=== PATIENT | female | born 1970 | race Caucasian/White ===

== ENCOUNTER 2024-03-10 07:02 | Outpatient (CLI) | payer OTHER, SELFPAY ==
--- NOTE | ~2024-03-10 | MR_ITS ---
MRI of the right knee Clinical history: Osteoarthritis Technique: Coronal proton density and proton density-weighted images, sagittal proton-density and T2 fat-sat images, and axial proton-density fat-saturated images were acquired. Findings: Anterior and posterior cruciate ligaments are intact. Medial collateral ligament and the la teral collateral ligament complex are intact. Popliteus tendon is intact. There is extensive complex tearing of the posterior horn and body of the medial meniscus. There is ex tensive intrasubstance degenerative signal of the lateral meniscus. Possible horizontal tear of the b billy segment. There is patchy moderate chondromalacia patella. There is extensive high-grade chondromalacia the fem oral trochlea. There is diffuse high-grade chondromalacia throughout the medial compartment. There is mild to moderate patchy chondromalacia the lateral compartment. There is extensive tricompartmental osteophyte formation. Extensor mechanism is intact. Small joint effusion present. No Guerrier's cyst. Impression: Extensive complex tearing of the posterior horn and body of the medial meniscus. Extensive intrasubstance degenerative signal of the lateral meniscus with possible superimposed horiz ontal tear of the body segment. Advanced tricompartmental osteoarthritis. Reviewed, dictated and finalized at location . ER Impression: Extensive complex tearing of the posterior horn and body of the medial meniscus . Extensive intrasubstance degenerative signal of the lateral meniscus with possi ble superimposed horizontal tear of the body segment. Advanced tricompartmental osteoarthritis.
--- NOTE | ~2024-03-10 | MR_ITS ---
MRI of the left knee Clinical history: Osteoarthritis Technique: Coronal proton density and proton density-weighted images, sagittal proton-density and T2 fat-sat images, and axial proton-density fat-saturated images were acquired. Findings: Anterior and posterior cruciate ligaments are intact. Medial collateral ligament and the la teral collateral ligament complex are intact. Popliteus tendon is intact. Extensive complex tearing of the body segment of the medial meniscus, with a somewhat macerated appea flash. No definite lateral meniscus tear seen. There is mild to moderate chondromalacia patella. There is extensive high-grade chondromalacia the fe moral trochlea. There is extensive high-grade chondral malacia throughout the medial compartment. The re is moderate to advanced chondromalacia of the lateral femoral condyle. Prominent tricompartmental osteophyte formation is present. Extensor mechanism is intact. Small joint effusion present. No Ugerrier's cyst. Impression: Extensive complex tearing of the body segment of the medial meniscus, as detailed above. Advanced tricompartmental osteoarthritis. Small joint effusion. Reviewed, dictated and finalized at location [facility] Impression: Extensive complex tearing of the body segment of the medial meniscus, as detail ed above. Advanced tricompartmental osteoarthritis. Small joint effusion.
== END 2024-03-10 07:03 | disposition home or self-care (01) ==
PROVIDERS: PCP Family Medicine; Visit Provider Orthopaedic Surgery
DX: S83.232A Complex tear of medial meniscus, current injury, left knee, initial encounter (principal); S83.231A Complex tear of medial meniscus, current injury, right knee, initial encounter; X58.XXXA Exposure to other specified factors, initial encounter; M23.303 Other meniscus derangements, unspecified medial meniscus, right knee; M23.302 Other meniscus derangements, unspecified lateral meniscus, unspecified knee; M25.462 Effusion, left knee; M17.0 Bilateral primary osteoarthritis of knee
CPT/HCPCS: 73721

== ENCOUNTER 2024-05-11 07:53 | Outpatient (CLI) | payer OTHER, SELFPAY ==
--- OUTSIDE RECORDS SUMMARY | 2024-05-11 08:06 | XMS_ITS | Encounter Summary ---
Author Organization [facility] Address [address] [place] [address] Care Team Providers Care Lead Burner Name Role Phone Arnoldo Saldana MD Primary Care Provider [phone] Lynn Yip MD Unavailable Juan Bateman MD Unavailable Bernadette Ma MD Unavailable [phone] Alli Stevens MD PhD Unavailable [phone] Reason for Visit * Reason Onset Date Comments Scheduling Appointments 08/22/2020 Confirim ing mammogram appt- no answer Encounter Details Date Type Department Care Team (Late st Contact Info) Description 08/22/2020 Telephone [facility] [address] [place] [id number] [address] Scheduling Appointments (Confiriming mammogram appt- no answer ) Social History Tobacco Use Types Packs/Day Years Used Date Smoking Tobacco: Never Smokeless Tobacco: Never Alcohol Use Standard Drinks/Week Comments Yes 0 (1 standard drink = 0.6 oz pur e alcohol) Rare PHQ-2 Answer Date Recorded PHQ-2 Total Score (If total score is 3 or more points, staff should administer the PHQ-9) 0 12/16/2019 Comments No Sex and Gender Information Value Date Recorded Sex Assigned at Not on file Legal Sex Female 1:41 AM [employer] Gender Identity Not on file Sexual Orientation Straight 08/10/2019 7: 45 PM CDT documented as of this encounter Plan of Treatment Not on file documented as of this encounter Visit Diagnoses Not on filedocumented in this encounter Care Teams Lead Burner Relationship Specialty Start Date End Date Arnoldo Saldana MD [address] [place] [address] PCP - General 06/06/16 Lynn Yip MD [address] [place] [address] Medical Oncologist/Commercial Driver'S License Driver Medical Oncology 02/03/23 Juan Bateman MD [address] [place] [address] Radiation Oncologist Radiation Oncology 07/27/23 Bernadette Ma MD [address] [place] [address] Surgeon Surgical Oncology 07/27/23 Alli Stevens MD PhD [address] [place] [address] Radiation Oncologist Radiation Oncology 07/27/23 documented as of this encounter
--- OUTSIDE RECORDS SUMMARY | 2024-05-11 08:06 | XMS_ITS | Continuity of Care Document ---
Author Organization [facility] Address [address] [place] [address] [place] [address] Phone Care Team Providers Care Fitness Attendant Name Role Phone Brad Avitia MD Unavailable Unavailable Advance Directives Directive Yes / No Effective Date File Name No Information Encounters Encounter Description Practice Location Reason(s) For Visit Diagnoses Date Provider Providers Copied on Encounter [facility], [address] [place] [address] [address], [place], [place], [id number], [place] tel:[phone] [place] Professional No Information Aug- 1200 6 Sadi Salinas. [address] [facility] [address], [place], [place], [id number], [place]. tel:[phone] Family History Family Member Type Diagnosis Age At Onset No Information Payers Payer name Insurance type Covered republican ID Authoriza tion(s) BC[place] [id number] Social History Type Description Quantity Date Captured [...]
--- OUTSIDE RECORDS SUMMARY | 2024-05-11 08:06 | XMS_ITS | Referral Summary ---
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 [facility], [address], [place] [address] Albumin 4.6 3.5 - 5.0 g/dL [facility] Comment:Testing performed by : [facility], [address], [place] [address] Alk phos 94 40 - 130 Units/L [facility] Comment:Testing performed by : [facility], [address], [place] [address] ALT 16 7 - 45 Units/L [facility] Comment:Testing performed by : [facility], [address], [place] [address] AST 15 10 - 45 Units/L [facility]IO [facility] Comment:Testing performed by : [facility], [address], [place] [address] Blood 04/01/2024 9:23 AM CULINARY INTERN 04/01/2024 9:41 AM CULINARY INTERN us Lynn Yip MD LAB BLOOD ORDERABLES Final Resul t [facility] [address] [place] [address] * SCAN - RADIOLOGY/IMAGING (03/31/2024) Anatomical Region Laterality Modality Other us Provider Scanning Final Result * SCAN - RADIOLOGY/IMAGING (03/10/2024) Anatomical Region Laterality Modality Other us Provider Scanning Final Result * MRI Breast Bilateral W WO Contrast (02/19/2024 10:40 AM CULINARY INTERN) Anatomical Region Laterality Modality Breast Bilateral Magnetic Resonan ce 02/19/2024 2:05 PM CULINARY INTERN Impressions 02/19/2024 2:12 PM CULINARY INTERN 1. No MR evidence of malignancy. 2. Interval BCT changes in the RIGHT breast. OVERALL FINAL ASSESSMENT: BI-RADS Category 2: Benign. RECOMMENDATION: Annual screening mammography, with screening breast MRI if clinically indicated, are recommended. Dictated by: Ad Torres MD The radiology attending physician has personally reviewed this study, and had reviewed and/or edited this written report and agrees with it. Electronically signed by: Maria Luisa Prado M.D. Narrative 02/19/2024 2:12 PM CULINARY INTERN EXAMINATION: 1. MRI EXAMINATION OF THE BREASTS WITH AND WITHOUT CONTRAST 2. 3D POST PROCESSING ON A DEDICATED 3D WORKSTATION HISTORY: High-risk Screening. 53-year-old female with history of right breast invasive ductal carcinoma status post BCT 01/19/2023 TECHNIQUE: MRI examination of the breasts per breast tumor protocol with and without gadolinium contrast. A dedicated breast imaging coil was used. The images were transferred to a breast CAD system for 3D post processing and contrast kinetics analysis. CONTRAST: Gadoterate meglumine, 20 ml COMPARISON: Multiple prior mammograms most recently 01/07/2024, MRI dated 12/18/2022 BREAST COMPOSITION: Scattered fibroglandular tissue BACKGROUND PARENCHYMAL ENHANCEMENT: Moderate FINDINGS: Interval breast conservation therapy changes in the RIGHT breast manifest by postsurgical scarring in the central breast and skin thickening and enhancement. No suspicious mass or non-mass enhancement in the EITHER breast. No abnormally enlarged lymph nodes are identified in the visualized portions of either axilla. Procedure Note Maria Luisa Prado MD - 02/19/2024 EXAMINATION: 1. MRI EXAMINATION OF THE BREASTS WITH AND WITHOUT CONTRAST 2. 3D POST PROCESSING ON A DEDICATED 3D WORKSTATION HISTORY: High-risk Screening. 53-year-old female with history of right breast invasive ductal carcinoma status post BCT 01/19/2023 TECHNIQUE: MRI examination of the breasts per breast tumor protocol with and without gadolinium contrast. A dedicated breast imaging coil was used. The images were transferred to a breast CAD system for 3D post processing and contrast kinetics analysis. CONTRAST: Gadoterate meglumine, 20 ml COMPARISON: Multiple prior mammograms most recently 01/07/2024, MRI dated 12/18/2022 BREAST COMPOSITION: Scattered fibroglandular tissue BACKGROUND PARENCHYMAL ENHANCEMENT: Moderate FINDINGS: Interval breast conservation therapy changes in the RIGHT breast manifest by postsurgical scarring in the central breast and skin thickening and enhancement. No suspicious mass or non-mass enhancement in the EITHER breast. No abnormally enlarged lymph nodes are identified in the visualized portions of either axilla. IMPRESSION: 1. No MR evidence of malignancy. 2. Interval BCT changes in the RIGHT breast. OVERALL FINAL ASSESSMENT: BI-RADS Category 2: Benign. RECOMMENDATION: Annual screening mammography, with screening breast MRI if clinically indicated, are recommended. Dictated by: Ad Torres MD The radiology attending physician has personally reviewed this study, and had reviewed and/or edited this written report and agrees with it. Electronically signed by: Maria Luisa Prado M.D. Bernadette Ma MD IM MRI PROCEDURES Edna l Result * Pap and HPV, reflex to HPV Genotypes (02/12/2024 12:28 PM CULINARY INTERN) Clinical indication Comment [facility] - 01 Comment: NEGATIVE FOR INTRAEPITHELIAL LESION OR MALIGNANCY. CELLULAR CHANGES ASSOCIATED WITH ATROPHY AND INFLAMMATION ARE PRESENT. THIS SPECIMEN WAS RESCREENED PART OF OUR ARCH CUSHION PRESS OPERATOR PROGRAM. Specimen adequacy: Comment [facility] - 01 Comment:Satisfactory for patti luation. Clinician provided ICD10 Comment [facility] 02 Comment:Z01.419 Performed by Comment [facility] - 01 Comment:Aaron Moulton, totechnologist (ASCP) QC reviewed by Comment [facility] - 01 Comment:Tom Odom, Sup ervisory Business Area Manager (ASCP) . . [facility] - 01 Note: Comment [facility] 02 Comment: The Pap smear is a screening test designed to aid in the detection of premalignant and malignant conditions of the uterine cervix. It is not a diagnostic procedure and should not be used as the sole means of detecting cervical cancer. Both false-positive and false-negative reports do occur. Test methodology Comment [facility] 02 Comment: This liquid based ThinPrep(R) pap test was screened with the use of an image guided system. HPV Aptima Negative Negative [facility] 03 Comment: This nucleic acid amplification test detects fourteen high-risk HPV types (16,18,31,33,35,39,45,51,52,56,58,59,66,68) without differentiation. HPV Genotype Reflex Comment [facility] - 01 Comment:Criteria not met, HP V Genotype not performed. Thin prep-Endocervical 02/12/2024 12:28 PM CULINARY INTERN 02/12/2024 Narrative [facility] - 02/25/2024 10:09 AM CULINARY INTERN Performed at: 01 - [facility] [id number] Dental Coordinator: Deanne Olivo MD, Phone: [phone] Performed at: 02 - [facility] [id number] Dental Coordinator: Caroline Dupont MD, Phone: [phone] Performed at: 03 - [facility] [id number] Dental Coordinator: Caroline Dupont MD, Phone: [phone] Specimen Comment: [id number] Specimen Comment: No. of containers..01 ThinPrep Vial Kim Otto NP LAB CYTOLOGY ORDERABLES Final Re sult [facility] - 01 [facility] 02 [facility] 03 * Diagnostic Mammogram Bilateral W Allen (09/01/2023 3:00 PM CDT) Anatomical Region Laterality Modality Breast Bilateral Mammography 09/01/2023 3:04 PM CDT Impressions 09/01/2023 3:04 PM CDT Post surgical changes in the right breast are benign. OVERALL FINAL ASSESSMENT: BI-RADS Category 2: Benign. RECOMMENDATION: Annual diagnostic mammography is recommended. The radiology attending physician has personally reviewed this study, and had reviewed and/or edited this written report and agrees with it. Electronically signed by: Lorelei Faustin M.D. Narrative 09/01/2023 3:04 PM CDT EXAMINATION: BILATERAL DIGITAL DIAGNOSTIC MAMMOGRAM INCLUDING CAD AND BILATERAL DIGITAL BREAST TOMOSYNTHESIS HISTORY: Right partial mastectomy in January 2023 COMPARISON: 10/11/2022, 09/11/2021, 08/23/2020 TECHNIQUE: Full field digital mammographic views of BOTH breasts were performed, including computer aided detection (CAD) and BILATERAL digital breast tomosynthesis (DBT). BREAST PARENCHYMAL COMPOSITION: There are scattered areas of fibroglandular density. MAMMOGRAM FINDINGS: Post surgical changes are present in the right breast. There is no mass, calcification or architectural distortion suggestive of malignancy within EITHER breast. Procedure Note Lorelei Faustin MD - 09/01/2023 EXAMINATION: BILATERAL DIGITAL DIAGNOSTIC MAMMOGRAM INCLUDING CAD AND BILATERAL DIGITAL BREAST TOMOSYNTHESIS HISTORY: Right partial mastectomy in January 2023 COMPARISON: 10/11/2022, 09/11/2021, 08/23/2020 TECHNIQUE: Full field digital mammographic views of BOTH breasts were performed, including computer aided detection (CAD) and BILATERAL digital breast tomosynthesis (DBT). BREAST PARENCHYMAL COMPOSITION: There are scattered areas of fibroglandular density. MAMMOGRAM FINDINGS: Post surgical changes are present in the right breast. There is no mass, calcification or architectural distortion suggestive of malignancy within EITHER breast. IMPRESSION: Post surgical changes in the right breast are benign. OVERALL FINAL ASSESSMENT: BI-RADS Category 2: Benign. RECOMMENDATION: Annual diagnostic mammography is recommended. The radiology attending physician has personally reviewed this study, and had reviewed and/or edited this written report and agrees with it. Electronically signed by: Lorelei Faustin M.D. Bernadette Ma MD IMG MAMMO PROCEDURES Fi nal Result * COLONOSCOPY (02/06/2020 8:09 AM CULINARY INTERN) Anatomical Region Laterality Modality Other Narrative Procedure Note Aquiles Tavarez MD - 02/06/2020 8:09 AM CST [facility] Patient Name: Sharita Alejandre Procedure Date: 02/06/2020 8:09 AM Date of : 1970 Admit Type: Outpatient Age: 49 Gender: Female Attending MD: Aquiles Tavarez M.D. Room: [facility] ENDOSCOPY ROOM 2 Note Status: Finalized Patient Profile: Refer to note in patient chart for documentation of history and physical. Procedure: Colonoscopy Indications: Screening for colorectal malignant neoplasm, This is the patient's first colonoscopy Referring MD: Arnoldo Saldana M.D. Providers: Aquiles Tavarez M.D. Impression: - Hemorrhoids found on perianal exam. - Diverticulosis in the sigmoid colon. - The examination was otherwise normal. - No specimens collected. Recommendation: - Discharge patient to home. - Resume previous diet. - Continue present medications. - Repeat colonoscopy in 10 years for screeningpurposes. - Return to primary care physician as previously scheduled. Medicines: Propofol per Anesthesia Complications: No immediate complications. Estimated Blood Loss: Estimated blood loss: none. Procedure: Pre-Anesthesia Assessment: - This assessment was completed [Time of Assessment] prior to the administration of sedation. The benefits, risks and alternatives of theprocedure and sedation were discussed and informed consent was obtained. All questions were answered. Please referto the signed informed consent document in the medical record. The bowel preparation used was Miralax. The bowel preparation used was bisacodyl tablets. Bowel prep was administered using a single dose. The scope was passed under direct vision. The Colonoscope [id number] was introduced through the anusand advanced to the the cecum, identified by appendiceal orifice and ileocecal valve. The colonoscopy was performed without difficulty. The patient toleratedthe procedure well. The quality of the bowel preparation was excellent. Findings: Hemorrhoids were found on perianal exam. A few small-mouthed diverticula were found in the sigmoid colon. The exam was otherwise without abnormality. Electronically signed by Aquiles Tavarez M.D. Aquiles Tavarez M.D. 02/06/2020 8:58:16 AM Number of Addenda: 0 Note Initiated On: 02/06/2020 8:09 AM Procedure Code(s): --- Professional --- G0121, Colorectal cancer screening; colonoscopy on individual not meeting criteria for high risk Diagnosis Code(s): --- Professional --- K57.30, Diverticulosis of large intestine without perforation orabscess without bleeding K64.9, Unspecified hemorrhoids Z12.11, Encounter for screening for malignant neoplasm of colon CPT copyright 2017 [employer] [place] [employer]. All rights reserved. The codes documented in this report are preliminary and upon joy operator helper reviewmay be revised to meet current compliance requirements. Recognized by the [place] [employer] for promoting quality in endoscopy Aquiles Tavarez MD ENDOSCOPY PROCEDURES Final Re sult from Last 3 Months or Most Recently Relevant to Health Maintenance Insurance [employer] [facility] N[facility] GENERIC COPAY ASSIST [facility] [place] [address] [facility] Advance Directives For more information, please contact: [phone] * Full Code (Latest Code Status on File) Date Activated Date Inactivated Comments 02/06/2020 8:07 AM 02/06/2020 1:50 PM Care Teams Insurance Loss Control Surveyor Relationship Specialty Start Date End Date Arnoldo Saldana MD [address] [place] [address] PCP - General 06/06/16 Lynn Yip MD [address] [place] [address] Medical Oncologist/Hosiery Mater Medical Oncology 02/03/23 Juan Bateman MD [address] [facility] [address] [place] [address] Radiation Oncologist Radiation Oncology 07/27/23 Bernadette Ma MD [address] [facility] [address] [place] [address] Surgeon Surgical Oncology 07/27/23 Alli Stevens MD PhD [address] [facility] [address] [place] [address] Radiation Oncologist Radiation Oncology 07/27/23
--- OUTSIDE RECORDS SUMMARY | 2024-05-11 08:06 | XMS_ITS | Clinical Summary ---
Author Organization [facility] Address [address] [place] [address] Care Team Providers Care Sales Superintendent Name Role Phone Julissa Lehman MD Primary Care Provider [phone] Source Comments [facility],non-owned Affiliates and Associated Physician Practices is amultiple site organization consisting of ambulatory clinics and hospital sitesin [place], [place], [place] and [place]. This disclosure is being madepursuant to the Care Everywhere program and may not contain all information available regarding this patient. Last updated 17.[facility] Branch[facility] Social History Tobacco Use Types Packs/Day Years Used Date Smoking Tobacco: Never Assessed Sex and Gender Information Value Date Recorded Sex Assigned at Not on file Gender Identity Not on file Sexual Orientation Not on file Plan of Treatment Health Maintenance Due Date Last Done Comments COLOGUARD (AGES 45-75) - COL ON CA SCREENING 1970 COLON MONITORING 1970 COLONOSCOPY - COLON CA SCREENING 1969 CT COLONOGRAPHY - COLON CA SCREENING 1970 Colorectal Cancer Screening 1970 FIT - COLON CA SCREENING 1970 FLEX SIG - COLON CA SCREENING 1970 LIPID TESTING 1970 MAMMOGRAM 1970 PAP SMEAR 1970 HIV SCREENING 1984 HEPATITIS C SCREENING 12/11/1987 DTAP/TDAP/TD VACCINES (1 - Tdap) 1988 HEPATITIS B VACCINE (1 of 3 - 19+ 3-dose series) 1988 PNEUMOCOCCAL VACCINE 50+ (1 of 1 - PCV) 12/16/2019 ZOSTER VACCINE (1 of 2) 12/16/2019 COVID-19 VACCINE ( - 2023-2 5 season) 2023 INFLUENZA VACCINE (#1) 2023 DEPRESSION SCREENING 03/09/2024 HIB VACCINE Aged Out No longer eligi ble based on patient's age to complete this topic HPV VACCINE Aged Out No longer eligi ble based on patient's age to complete this topic MENINGOCOCCAL (Group B) VACCINE Aged Out No longer eligible based on patient's age to complete this topic MENINGOCOCCAL VACCINE Aged Out No renetta corona eligible based on patient's age to complete this topic PNEUMOCOCCAL VACCINE Aged Out No long er eligible based on patient's age to complete this topic Care Teams Sales Superintendent Relationship Specialty Start Date End Date Julissa Lehman MD [address] [place] [id number] PCP - General 07/04/20
--- OUTSIDE RECORDS SUMMARY | 2024-05-11 08:06 | XMS_ITS | Patient Health Summary ---
Author Organization [facility] Address [address] [place] [address] Care Team Providers Care Soil Fertility Specialist Name Role Phone Julissa Lehman MD Primary Care Provider [phone]- [phone] [facility],non-owned Affiliates and Associated Physician Practices is amultiple site organization consisting of ambulatory clinics and hospital sitesin [place], [place], [place] and [place]. This disclosure is being madepursuant to the Care Everywhere program and may not contain all information available regarding this patient. Last updated 17.[facility] Social History Tobacco Use Types Packs/Day Years Used Date Smoking Tobacco: Never Assessed Sex and Gender Information Value Date Recorded Sex Assigned at Not on file Gender Identity Not on file Sexual Orientation Not on file Procedures * DERMATOPATHOLOGY(Performed 07/03/2020) Results * DERMATOPATHOLOGY (07/03/2020 12:00 AM CDT) Case Report Dermatopathology Report Case: [id number] Authorizing Provider: Edmund Wang Jr., MD Collected: 07/03/2020 12:00 AM Ordering Location: [facility] DermPath Lab Received: 07/05/2020 05:38 AM Pathologist: Julissa Costa MD Specimen: Skin, left superior upper back 12:39 PM CDT DERMATOPATHOLOGY LABORATORY Final Diagnosis Specimen A. SKIN, left superior upper back: EPIDERMOID CYST WITH EVIDENCE OF RUPTURE (L72.0) 12:39 PM CDT DERMATOPATHOLOGY LABORATORY Clinical History Neoplasm of uncertain behavior of skin vs ruptured epidermoid cyst. . 12:39 PM CDT DERMATOPATHOLOGY LABORATORY Gross Description Specimen A: Received is one formalin filled container labeled with the patient's name and designated left superior upper back. The specimen consists of a non-oriented ellipse of skin measuring [id number], bisected. Jar 0. 12:39 PM CDT DERMATOPATHOLOGY LABORATORY Microscopic Description Specimen A. SKIN, left superior upper back: Within the dermis, there is a space lined by epithelium that resembles normal epidermis and the infundibular portion of the hair follicle. Surrounding this is an infiltrate with neutrophils, histiocytes, and multinucleated giant cells. 12:39 PM CDT DERMATOPATHOLOGY LABORATORY Disclaimer An external and internal positive and negative controls are appropriate for the histochemical, immunohistochemical and immunofluorescence stain(s) in this case (if any), except where stated explicitly. The performance characteristics of the stain(s) cited in this report were developed and its performance characteristic determined by the Dermatopathology Laboratory at [facility], directed by Dr. Micha Esteban. These tests need not be, and therefore are not, approved by the [place] Food and Drug Administration. The tests are used for clinical purposes. Billing Codes Specimen Charges Stain Charges 64097 1 12:39 PM CDT DERMATOPATHOLOGY LABORATORY Embedded Images 12:39 PM CDT DERMATOPATHOLOGY LABORATORY Pathology/Cytolog y TISSUE SPECIMEN FROM SKIN / Unknown 07/03/2020 07/05/2020 5:38 AM CDT Edmund Wang Jr., MD LAB - PATHOLOGY /CYTOLOGY ORDERABLES DERMATOPATHOLOGY LABORATORY [facility] - Department of Dermatology [facility] Medicine [address] [place] [address], [address] [phone] Care Teams Soil Fertility Specialist Relationship Specialty Start Date End Date Julissa Lehman MD [address] [place] [address] PCP - General 07/04/20
--- OUTSIDE RECORDS SUMMARY | 2024-05-11 08:06 | XMS_ITS | Referral Summary ---
Author Organization [facility] Address [address] [place] [address] Care Team Providers Care Ship Cleaner Name Role Phone Julissa Lehman MD Primary Care Provider [phone]- [phone] [facility],non-owned Affiliates and Associated Physician Practices is amultiple site organization consisting of ambulatory clinics and hospital sitesin [place], [place], [place] and [place]. This disclosure is being madepursuant to the Care Everywhere program and may not contain all information available regarding this patient. Last updated 17.[facility] Social History Tobacco Use Types Packs/Day Years Used Date Smoking Tobacco: Never Assessed Sex and Gender Information Value Date Recorded Sex Assigned at Not on file Gender Identity Not on file Sexual Orientation Not on file Plan of Treatment Not on file Care Teams Ship Cleaner Relationship Specialty Start Date End Date Julissa Lehman MD [address] [place] [address] PCP - General 07/04/20
--- OUTSIDE RECORDS SUMMARY | 2024-05-11 08:06 | XMS_ITS | Clinical Summary ---
Author Organization [facility] Address [address] [place] [address] Care Team Providers Care Medical Social Consultant Name Role Phone Arnoldo Saldana MD Primary Care Provider [phone] Lynn Yip MD Unavailable Juan Bateman MD Unavailable Bernadette Ma MD Unavailable [phone] Alli Stevens MD PhD Unavailable [phone] Allergies No known active allergies Medications ALPRAZolam [...] 6:10 AM CDT): Doing well [facility] the [facility] of vasomotor symptoms. Samples given today in office. Plan to submit appeal to insurance to hopefully get insurance coverage for the [facility] since use of hormonal treatment is contraindicated [...] from 02/17/2023:Stage IA(pT1b, pN0, cM0, G3, ER+, CO+, HER2-) - Signed by Iron Currie MD on 02/17/2023 Thyroid nodule 2022 Assessment & Plan (2022 3:35 PM CDT): Thyroid Ultrasound Epistaxis 2022 Assessment & Plan (2022 3:35 PM CDT): Nasal saline spray (Simply saline, Little Remedies, Stephenson, Alicia) 2 second sprays or 2 squeezes into [...] Nasal saline spray (Simply saline, Little Remedies, Stephenson, Alicia) 2 second sprays or 2 squeezes into [...] and possible Fungal ball removal Endoscopic Left Emelina bullosa removal Stealth image guidance Risks and [...] (12/23/2019): Added automatically from request for surgery [id number] Family history of colon cancer 12/23/2019 Overview (12/23/2019): Added automatically from request for surgery [id number] Anxiety 05/25/2019 Assessment & Plan (05/25/2019 9:12 [...] ENT evaluation. Goiter 03/18/1994 Overview (06/14/2016): Goiter Encounters Date Type Department Care Team Description 05/03/2024 10:15 AM FIOS LINE INSTALLER Office Visit [facility] [address] GALLOERIC PEÑALOZABRIAN ADLER [phone] Lynn Yip MD Malignant neoplasm of upper-inner quadrant of right breast in female, estrogen receptor positive (HCC) 04/08/2024 Orders Only [facility] [address] [place] [address] Arnoldo Saldana MD 04/01/2024 10:30 AM FIOS LINE INSTALLER Lab [facility] [place] at [address] [place] [phone] Thyroid dysfunction 04/01/2024 10:15 AM FIOS LINE INSTALLER Office Visit [facility] [address] [place] [address] [address] [place] [phone] Lynn Yip MD Malignant neoplasm of upper-inner quadrant of right breast in female, estrogen receptor positive (HCC) 04/01/2024 9:45 AM FIOS LINE INSTALLER Lab [facility] [place] at [address] [place] [phone] Pre-op testing; Malignant neoplasm of upper-inner quadrant of right breast in female, estrogen receptor positive (HCC) 04/01/2024 9:15 AM FIOS LINE INSTALLER Lab [facility] [address] [place] [address] [address] [place] [phone] Malignant neoplasm of upper-inner quadrant of right breast in female, estrogen receptor positive (HCC) 03/31/2024 Orders Only [facility] Health Information Management [address] [place] [address] Scanning, Provider 03/31/2024 Telephone [facility] [address] [place] [address] [address] [place] [phone] Lynn Schuler RMA lab orders 03/31/2024 Orders Only [facility] [address] [place] [address] [place] [phone] Lynn Yip MD Pre-op testing (Primary Dx); Malignant neoplasm of upper-inner quadrant of right breast in female, estrogen receptor positive (HCC) 03/17/2024 Telephone [facility] [address] [place] [address] Arnoldo Saldana MD 03/14/2024 Telephone [facility] [address] [place] [address] Arnoldo Saldana MD 03/10/2024 Orders Only [facility] Health Information Management [address] [place] [address] Scanning, Provider 02/19/2024 9:30 AM FIOS LINE INSTALLER - 02/19/2024 11:59 PM FIOS LINE INSTALLER Hospital Encounter [facility] [address] [place] [id number] History of breast cancer; Malignant neoplasm of upper-inner quadrant of right breast in female, estrogen receptor positive (HCC) Discharge Disposition: Discharge to home or self care 02/12/2024 11:00 AM FIOS LINE INSTALLER [facility] [address] [place] [phone] Kim Otto NP Well woman exam (Primary Dx); Vasomotor symptoms due to menopause from Last 3 Months Immunizations Immunization Administration Dates Next Due Influenza, Unspecified 01/06/2024(Deferr ed: Patient Refused),11/07/2022(Deferred: Patient Refused),12/24/2021(Deferred: Patient Refused),03/09/2021(Deferred: Patient Refused),12/17/2020(Deferred: Patient Refused),12/16/2019(Deferred: Patient Refused),11/08/2019(Deferred: Patient Refused),2018(Deferred: Patient Refused),03/16/2018(Deferred: Patient Refused),03/09/2018(Deferred: Patient Refused),03/16/2017(Deferred: Patient Refused) Novavax COVID-19 5MCG/0.5ML Vaccine 12/31/2022 Pfizer Sars-Cov-2 Bivalent Vaccination (12+ YRS) 01/09/2024,12/18/2021 ZOSTER Recombinant 01/09/2024 Surgical History Surgery Date Site/Laterality Comments THYROIDECTOMY, PARTIAL 03/09/2004 - 03/08/2005 partial thyroidectomy HYSTERECTOMY 04/09/1999 - 05/07/1999 Hysterectomy OTHER SURGICAL HISTORY 03/09/2010 - 03/08/2011 BX of left thyroid nodule LAPAROSCOPICALLY ASSISTED VAGINAL HYSTERECTOMY 03/09/2009 - 03/08/2010 LAVH TONSILLECTOMY Tonsillectomy OTHER SURGICAL HISTORY 03/09/2009 - 03/08/2010 menorrhagia: Hysterectomy, partial WRIST SURGERY Right Wrist surgery OTHER SURGICAL HISTORY 03/09/2016 - 03/08/2017 cyst removed from chest office proceedure COLONOSCOPY 02/06/2020 1st US GUIDED BIOPSY LYMPH NODE SUPERFICIAL LEFT 11/21/2022 N/A BREAST BIOPSY 11/21/2022 Right Medical History Medical History Date Comments Hx Other Medical 2005 hypothyroid Disorder of thyroid Thyroid dise ase; Comments: [facility] 04/18/2014 -; Outcome: hypothyroidism Hx Other Medical menorrhagia; Co mments: [facility] 04/18/2014 - Cyst of skin Neck pain Pain in wrist Shoulder pain Hemangioma of skin Multinodular goiter GERD (gastroesophageal reflux disease) Allergic rhinitis Asthma Autoimmune disease Hypothyroidism PONV (postoperative nausea and vomiting) Depression Anxiety Family History Medical History Relation Name Comments Other Brother Alive and well; Acute lymphoblastic leukemia Father Hypertension Father Hypertension; Leukemia Father Leukemia; Colon cancer Maternal Grandmother Breast cancer Maternal cousin 2nd cousin Thyroid disease Mother Thyroid dise ase; /Thyroid disorder; 70s y. Recurrent blod clots. Mother's Sister 2 Diabetes Mother's Sister 2 Diabetes m ellitus; Leukemia Mother's Sister 3 Leukemia; Lung cancer Other 1 Family history of Cancer, lung; Liver cancer Other 2 Family history of liver cancer; Coronary artery disease Paternal Grandfather Coronary artery disease; Recurrent Blood clots Paternal Grandmother Ovarian cancer Neg Hx Thyroid cancer Neg Hx Relation Name Status Comments Brother Alive Cousin Alive Father Alive Maternal Grandmother Maternal cousin 2nd cousin Mother Alive Mother's Sister 1 Alive Mother's Sister 2 Alive Mother's Sister 3 Other 1 Other 2 Paternal Grandfather Paternal Grandmother Social History Tobacco Use Types Packs/Day Years [...] on file Legal Sex Female 1:41 AM FIOS LINE INSTALLER Gender Identity Not on file Sexual Orientation Straight 08/10/2019 7: 45 PM CDT Obstetrics History Para Term AB IAB SAB Ectopic Multiple Livin g Live Births 1 0 0 1 1 0 Date Outcome GA Total Labor Labor/2nd/3rd Weight Sex Type Anes PTL Emma A1 A5 Name Clin IAB Comments Hysterectomy at age 39 y/o Last Filed Vital Signs Vital Sign Reading Time Taken Comments Blood Pressure 147/84 05/03/2024 10:20 AM FIOS LINE INSTALLER Pulse 69 05/03/2024 10:20 AM FIOS LINE INSTALLER Temperature 36.8 C (98.2 F) 05/03/2024 10:20 AM FIOS LINE INSTALLER Respiratory Rate 18 05/03/2024 10:2 0 AM FIOS LINE INSTALLER Oxygen Saturation 99% 05/03/2024 10: 20 AM FIOS LINE INSTALLER Inhaled Oxygen Concentration - - Weight 107.9 kg (237 lb 12.8 oz) 2024 10:20 AM FIOS LINE INSTALLER Height 169.7 cm (5' 6.81 ) 04/01/2024 9:30 AM CS T Body Mass Index 37.46 04/01/2024 9:30 AM FIOS LINE INSTALLER Plan of Treatment Health Maintenance Due Date Last Done Comments Hepatitis C Screening 1969 DTaP/Tdap/Td Vaccine (1 - Tdap) 1980 Hepatitis B Screening 12/16/1987 Pneumococcal vaccine <65 (1 of 2 - PCV) 1988 Zoster Vaccine (2 of 2) 03/05/2024 01/09/2024 Covid-19 Vaccine (7 - Pfizer risk season) 2024 01/09/2024, 01/09/2024, 12/31/2022, Additional history exists Breast Cancer Screening-Mammogram 08/31/2024 09/01/2023, 11/07/2022, 10/11/2022, Additional history exists Depression Screening 02/11/2025 02/12/2024, 01/06/2024, 01/06/2024, Additional history exists Regular Well Visit/Exam 18-64 02/11/2025, 01/06/2024, 02/09/2023, Additional history exists Colon Cancer Screening-Colonoscopy 02/05/2030 02/06/2020 Cervical Cancer Screening Discontinued 02/12/2024 Influenza Vaccine Discontinued Medical Devices Implanted Type Area Field Education Director Device Identifier Shelf Expiration Date Model / Serial / Lot Bard Peripheral Vascular Marker Breast Dual Trigger Pva Ultraclip [id number] - [id number] - [id number] Implanted:Qty: 1 on 11/21/2022 by Nasim Peñaloza MD at [facility] Breast Right: Breast Bard Peripheral Vascular 03/05/2025 [id number] / [id number] / Description:US guided right breast biopsy in 2:00 area; 3cmfn; cores x3 Bard Peripheral Vascular Ultraclip Bard 17ga 10cm 2 Trigger Permanent Ultrasound [id number] - [id number] - [id number] Implanted:Qty: 1 on 11/21/2022 by Nasim Peñaloza MD at [facility] Breast Right: Breast Bard Peripheral Vascular 11/03/2024 [id number] / [id number] / Description:US guided right axillary lymph node with mild cortical thickening (4 mm in thickness); cores x5 [employer] Marker Tissue Needle Delivery Spiral Capped Seed Radiopaque Motor Runner Stainless Steel Low Nickel Sentimag [id number] - [id number] Implanted:Qty: 1 on 01/12/2023 at [facility] 3Scan [id number] / / Procedures Procedure Name Priority Date/Time Associated Diagnosis Comments EGFR Routine 04/01/2024 9:23 AM FIOS LINE INSTALLER Malignant neoplasm of upper-inner quadrant of right breast in female, estrogen receptor positive (HCC) DIFFERENTIAL AUTO Routine 04/01/2024 9:2 3 AM FIOS LINE INSTALLER Malignant neoplasm of upper-inner quadrant of right breast in female, estrogen receptor positive (HCC) T4, FREE Routine 04/01/2024 9:23 AM FIOS LINE INSTALLER Thyroid dysfunction TSH Routine 04/01/2024 9:23 AM FIOS LINE INSTALLER Thyroid dysfunction CBC WITH AUTO DIFFERENTIAL Routine 04/01/2024 9:23 AM FIOS LINE INSTALLER Malignant neoplasm of upper-inner quadrant of right breast in female, estrogen receptor positive (HCC) COMPREHENSIVE METABOLIC PANEL Routine 04/01/2024 9:23 AM FIOS LINE INSTALLER Malignant neoplasm of upper-inner quadrant of right breast in female, estrogen receptor positive (HCC) HEMOGLOBIN A1C Routine 04/01/2024 9:23 AM FIOS LINE INSTALLER Pre-op testing Malignant neoplasm of upper-inner quadrant of right breast in female, estrogen receptor positive (HCC) SCAN - RADIOLOGY/IMAGING 03/31/2024 SCAN - RADIOLOGY/IMAGING 03/10/2024 MRI BREAST BILATERAL W WO CONTRAST Schedule Routine, Read Routine (OP Routine) 02/19/2024 10:40 AM FIOS LINE INSTALLER History of breast cancer Malignant neoplasm of upper-inner quadrant of right breast in female, estrogen receptor positive (HCC) PAP AND HPV, REFLEX TO HPV GENOTYPES Routine 02/12/2024 12:28 PM FIOS LINE INSTALLER Well woman exam DIAGNOSTIC MAMMOGRAM BILATERAL W ALLEN Schedule Routine, Read Routine (OP Routine) 09/01/2023 3:00 PM CDT Malignant neoplasm of upper-inner quadrant of right breast in female, estrogen receptor positive (HCC) COLONOSCOPY 02/06/2020 8:09 AM FIOS LINE INSTALLER from Last 3 Months or Most Recently Relevant to Health Maintenance Results * eGFR (04/01/2024 9:23 AM FIOS LINE INSTALLER) eGFR 72 >=60 mL/min/1. 73 m2 Comment: [...] was last reviewed 2021. Testing performed by: [facility], [address] [place] [address] Blood 04/01/2024 9:23 AM FIOS LINE INSTALLER 04/01/2024 9:41 AM FIOS LINE INSTALLER us Lynn Yip MD LAB BLOOD ORDERABLES Final [facility]ul t [facility] [address] Department of Laboratories [place] [phone] * Differential, auto (04/01/2024 9:23 AM FIOS LINE INSTALLER) Neutrophil abs 3.7 1.5 - 6.5 K/cumm Comment:Testing performed by : [facility], [address] [place] [address] Imm gran abs 0.0 0.0 - 0.1 K/cumm LIBORIO RAMSEY Comment:Testing performed by : [facility], [facility] 2, [address] [place] [address] Lymphocyte abs 2.3 0.8 - 3.3 K/cumm LIBORIO RAMSEY Comment:Testing performed by : [facility], [facility] 2, [address], [place] [address] Monocyte abs 0.6 0.2 - 0.8 K/cumm CERNER BJWCH Comment:Testing performed by : [facility], [facility] 2, [address] [place] [address] Eosinophil abs 0.2 0.0 - 0.5 K/cumm CERNER BJWCH Comment:Testing performed by : [facility], [facility] 2, [address] [place] [address] Basophil abs 0.1 0.0 - 0.1 K/cumm CERNER BJWCH Comment:Testing performed by : [facility], [facility] 2, [address] [place] [address] Neutrophil pct 54.6 % CERNER BJWCH Comment: Interpretive Data Percent cell count reference ranges are not reported, since discordance with absolute values may lead to misinterpretation of CBC data. Current Interpretive Data was last revised on 2017. Testing performed by: [facility], [facility] 2, [address] [place] [address] Imm gran pct 0.4 % CERNER BJWCH Comment: Interpretive Data Percent cell count reference ranges are not reported, since discordance with absolute values may lead to misinterpretation of CBC data. Current Interpretive Data was last revised on 2017. Testing performed by: [facility], [facility] 2, [address] [place] [address] Lymphocyte pct 33.5 % CERNER BJWCH Comment: Interpretive Data Percent cell count reference ranges are not reported, since discordance with absolute values may lead to misinterpretation of CBC data. Current Interpretive Data was last revised on 2017. Testing performed by: [facility], [facility] 2, [address] [place] [address] Monocyte pct 8.3 % CERNER BJWCH Comment: Interpretive Data Percent cell count reference ranges are not reported, since discordance with absolute values may lead to misinterpretation of CBC data. Current Interpretive Data was last revised on 2017. Testing performed by: [facility], [facility] 2, [address] [place] [address] Eosinophil pct 2.2 % LIBORIO RAMSEY Comment: Interpretive Data Percent cell count reference ranges are not reported, since discordance with absolute values may lead to misinterpretation of CBC data. Current Interpretive Data was last revised on 2017. Testing performed by: [facility] 2, [address] [place] [address] Basophil pct 1.0 % LIBORIO RAMSEY Comment: Interpretive Data Percent cell count reference ranges are not reported, since discordance with absolute values may lead to misinterpretation of CBC data. Current Interpretive Data was last revised on 2017. Testing performed by: [facility] 2, [address] [place] [address] Blood 04/01/2024 9:23 AM FIOS LINE INSTALLER 04/01/2024 9:29 AM FIOS LINE INSTALLER us Lynn Yip MD LAB BLOOD ORDERABLES Final Resul t [facility] [address] [facility] Department [place] [address] * CBC with auto differential (04/01/2024 9:23 AM FIOS LINE INSTALLER) WBC 6.7 3.8 - 9.9 K/cumm Comment:Testing performed by : [facility] 2, [address] [place] [address] Hgb 14.9 11.9 - 15.5 g/dL LIBORIO RAMSEY Comment:Testing performed by : [facility] 2, [address] [place] [address] Hct 44.7 35.6 - 45.5 % LIBORIO RAMSEY Comment:Testing performed by : [facility] 2, [address] [place] [address] Plt 284 150 - 400 K/cumm LIBORIO RAMSEY Comment:Testing performed by : [facility] 2, [address] [place] [address] MPV 10.5 9.1 - 12.3 fL LIBORIO RAMSEY Comment:Testing performed by : [facility], [facility] 2, [address] [place] [address] RBC 5.09 3.90 - 5.20 M/cumm LIBORIO RAMSEY Comment:Testing performed by : [facility], [facility] 2, [address] [place] [address] MCV 88 81 - 96 fL LIBORIO RAMSEY Comment:Testing performed by : [facility], [facility] 2, [address] [place] [address] MCH 29.3 27.1 - 33.3 pg LIBORIO RAMSEY Comment:Testing performed by : [facility], [facility] 2, [address] [place] [address] MCHC 33.3 32.3 - 35.7 g/dL LIBORIO RAMSEY Comment:Testing performed by : [facility], [facility] 2, [address] [place] [address] RDW CV 12.6 11.1 - 14.9 % LIBORIO LUTZCALEB Comment:Testing performed by : [facility], [facility] 2, [address] [place] [address] RDW SD 41.1 35.7 - 48.1 fL LIBORIO KENNEDY Comment:Testing performed by : [facility] 2, [address] [place] [address] Blood 04/01/2024 9:23 AM FIOS LINE INSTALLER 04/01/2024 9:29 AM FIOS LINE INSTALLER us Lynn Yip MD LAB BLOOD ORDERABLES Final Resul t LIBORIO LUTZCH [address] [facility]. Department [place] [address] * (ABNORMAL) TSH (04/01/2024 9:23 AM FIOS LINE INSTALLER) Thyroid Stimulating Hormone 11.90(H) 0.30 - 4.20 mcIUnit/mL Comment:Testing performed by : [facility], [address], [place] [address] Blood 04/01/2024 9:23 AM FIOS LINE INSTALLER 04/01/2024 9:41 AM FIOS LINE INSTALLER Arnoldo Saldana MD LAB BLOOD ORDERABLES Edna l Result Performing Organization Address City/[facility] Co de Phone Number LIBORIO BJWCH [address] [address] [employer] [facility] [place] [address] * T4, free (04/01/2024 9:23 AM FIOS LINE INSTALLER) Free T4 1.24 0.90 - 1.70 ng/dL Comment:Testing performed by : [facility], [address], [place] [address] Blood 04/01/2024 9:23 AM FIOS LINE INSTALLER 04/01/2024 9:41 AM FIOS LINE INSTALLER Arnoldo Saldana MD LAB BLOOD ORDERABLES Edna l Result Performing Organization Address City/[facility] Co de Phone Number LIBORIO BJWCH [address] [address] [employer]. [facility] [place] [address] * Hemoglobin A1c (04/01/2024 9:23 AM FIOS LINE INSTALLER) Hgb A1C 5.4 4.0 - 5.6 % Comment:Testing performed by : [facility], [address], [place] [address] Estimated Average Glucose 108 mg/dL LIBORIO BJWCH Comment: The ADA recommends reporting an estimated Average Glucose (eAG) with all Hemoglobin A1c results using the equation derived from a study of 507 normal and diabetic adults. Minority populations were underrepresented and children were not included. (Diabetes Care 31:5651-2065, 2008). The eAG is not equivalent to a fasting glucose. Testing performed by: [facility], [address] [place] [address] Blood 04/01/2024 9:23 AM FIOS LINE INSTALLER 04/01/2024 9:41 AM FIOS LINE INSTALLER us Lynn Yip MD LAB BLOOD ORDERABLES Final Resul t LIB[facility]IO [facility] [address] [address] [place] [address] * Comprehensive metabolic panel (04/01/2024 9:23 AM FIOS LINE INSTALLER) Sodium 139 135 - 145 mmol/L Comment:Testing performed by : [facility], [address], [place] [address] Potassium, pl 4.3 3.3 - 4.9 mmol/L CERBRUNO BJWCH Comment:Testing performed by : [facility], [address], [place] [address] Chloride 102 97 - 110 mmol/L CERBRUNO BJWCH Comment:Testing performed by : [facility], [address], [place] [address] CO2 26 22 - 32 mmol/L CERNER BJWCH Comment:Testing performed by : [facility], [address], [place] [address] Anion gap 12 2 - 15 mmol/L CERBRUNO BJWCH Comment:Testing performed by : [facility], [address], [place] [address] BUN 19 6 - 25 mg/dL CERNER BJWCH Comment:Testing performed by : [facility], [address], [place] [address] Creatinine 0.94 0.60 - 1.10 mg/dL CERNER BJWCH Comment:Testing performed by : [facility], [address], [place] [address] Glucose 100 70 - 199 mg/dL CERNER [...] was last revised 2022. Testing performed by: [facility], [address], [place] [address] Calcium 10.1 8.5 - 10.3 mg/dL CERNER BJWCH Comment:Testing performed by : [facility], [address], [place] [address] Bilirubin, total 0.5 0.1 - 1.2 mg/dL CERNER BJWCH Comment:Testing performed by : [facility], [address], [place] [address] Protein, pl 8.4 6.5 - 8.5 g/dL CERNER BJWCH Comment:Testing performed by : [facility], [address], [place] [address] Albumin 4.6 3.5 - 5.0 g/dL CERNER BJWCH Comment:Testing performed by : [facility], [address], [place] [address] Alk phos 94 40 - 130 Units/L CERNER BJWCH Comment:Testing performed by : [facility], [address], [place] [address] ALT 16 7 - 45 Units/L CERNER BJWCH Comment:Testing performed by : [facility], [address], [place] [address] AST 15 10 - 45 Units/L CERNER BJWCH Comment:Testing performed by : [facility], [address], [place] [address] Blood 04/01/2024 9:23 AM FIOS LINE INSTALLER 04/01/2024 9:41 AM FIOS LINE INSTALLER us Lynn Yip MD LAB BLOOD ORDERABLES Final Resul t [facility] [address] [place] [address] * SCAN - RADIOLOGY/IMAGING (03/31/2024) Anatomical Region Laterality Modality Other us Provider Scanning Final Result * SCAN - RADIOLOGY/IMAGING (03/10/2024) Anatomical Region Laterality Modality Other us Provider Scanning Final Result * MRI Breast Bilateral W WO Contrast (02/19/2024 10:40 AM FIOS LINE INSTALLER) Anatomical Region Laterality Modality Breast Bilateral Magnetic Resonan ce 02/19/2024 2:05 PM FIOS LINE INSTALLER Impressions 02/19/2024 2:12 PM FIOS LINE INSTALLER 1. No MR evidence of malignancy. 2. [...] Luisa Prado M.D. Narrative 02/19/2024 2:12 PM FIOS LINE INSTALLER EXAMINATION: 1. MRI EXAMINATION OF THE BREASTS [...] reflex to HPV Genotypes (02/12/2024 12:28 PM FIOS LINE INSTALLER) Clinical indication Comment [facility] - 01 Comment: NEGATIVE FOR INTRAEPITHELIAL LESION OR MALIGNANCY. CELLULAR CHANGES ASSOCIATED WITH ATROPHY AND INFLAMMATION ARE PRESENT. THIS SPECIMEN WAS RESCREENED PART OF OUR CUSTOMER SOLUTIONS SPECIALIST PROGRAM. Specimen adequacy: Comment [facility] - 01 Comment:Satisfactory for patti luation. Clinician provided ICD10 Comment LAB [facility] 02 Comment:Z01.419 Performed by Comment [facility] - 01 Comment:Anand Martinez totechnologist (ASCP) QC reviewed by Comment [facility] - 01 Comment:[facility] Central Sterile Supply Technician (ASCP) . . [facility] - 01 Note: [...] not performed. Thin prep-Endocervical 02/12/2024 12:28 PM FIOS LINE INSTALLER 02/12/2024 Narrative [facility] - 02/25/2024 10:09 AM FIOS LINE INSTALLER Performed at: - Lab[address] [id number] Sole Stainer: Deanne Olivo MD, Phone: [phone] Performed at: - [address] [id number] Sole Stainer: Caroline Dupont MD, Phone: [phone] Performed at: [address] [id number] Sole Stainer: Caroline Dupont MD, Phone: [phone] Specimen Comment: [id number] Specimen Comment: No. of containers..01 ThinPrep Vial us Kim Otto NP LAB CYTOLOGY ORDERABLES Final Re sult [facility] - 01 LAB [facility] 02 LAB [...] nal Result * COLONOSCOPY (02/06/2020 8:09 AM FIOS LINE INSTALLER) Anatomical Region Laterality Modality Other Narrative Procedure Note Aquiles Tavarez MD - 02/06/2020 8:09 AM CST [facility] Patient Name: Sharita Alejandre Procedure Date: 02/06/2020 8:09 AM Date of : 1970 Admit Type: Outpatient Age: 49 Gender: Female Attending MD: Aquiles Tavarez M.D. Room: [facility] ENDOSCOPY ROOM 2 Note Status: Finalized Patient [...] was passed under direct vision. The Colonoscope [id number] was introduced through the anusand advanced to [...] malignant neoplasm of colon CPT copyright 2017 [employer]. All rights reserved. The codes documented in this report are preliminary and upon brake mechanic reviewmay be revised to meet current compliance requirements. Recognized by the [employer] for promoting quality in endoscopy Aquiles Tavarez MD ENDOSCOPY PROCEDURES Final Re sult from Last 3 Months or Most Recently Relevant to Health Maintenance Insurance BLUE ACCESS O[facility] H[facility]PPO Address: [address] [place] [address] GENERIC COPAY ASSIST [facility] H[facility]/PPO Address: [facility] [id number] [place] [id number] Advance Directives For more information, please contact: [phone] * Full Code (Latest Code Status on File) Date Activated Date Inactivated Comments 02/06/2020 8:07 AM 02/06/2020 1:50 PM Care Teams Medical Social Consultant Relationship Specialty Start Date End Date Arnoldo Saldana MD [address] [place] [address] PCP - General 06/06/16 Lynn Yip MD [address] [facility] [address] [place] [address] Medical Oncologist/Propellant Charge Loader Medical Oncology 02/03/23 Juan Bateman MD [address] [facility] [address] [place] [address] Radiation Oncologist Radiation Oncology 07/27/23 Bernadette Ma MD [address] [facility] [address] [place] [address] Surgeon Surgical Oncology 07/27/23 Alli Stevens MD PhD [address] [place] [address] Radiation Oncologist Radiation Oncology 07/27/23
--- OUTSIDE RECORDS SUMMARY | 2024-05-11 08:06 | XMS_ITS ---
Author Organization [facility] Address [address] [place] [address] Care Team Providers Care Electrician Telephone Name Role Phone Arnoldo Saldana MD Primary Care Provider [phone] Lynn Yip MD Unavailable Juan Bateman MD Unavailable Bernadette Ma MD Unavailable [phone] Alli Stevens MD PhD Unavailable [phone] Active Problems Problem Noted Date Diagnosed Date [...] from 02/17/2023:Stage IA(pT1b, pN0, cM0, G3, ER+, MA+, HER2-) - Signed by Iron Currie MD on 02/17/2023 Thyroid nodule 2022 Assessment & Plan (2022 3:35 PM CDT): Thyroid Ultrasound Epistaxis 2022 Assessment & Plan (2022 3:35 PM CDT): Nasal saline spray (Simply saline, Little Remedies, [place], [place]) 2 second sprays or 2 squeezes into [...] Nasal saline spray (Simply saline, Little Remedies, [place], [place]) 2 second sprays or 2 squeezes into [...] (12/23/2019): Added automatically from request for surgery [id number] Family history of colon cancer 12/23/2019 Overview (12/23/2019): Added automatically from request for surgery [id number] Anxiety 05/25/2019 Assessment & Plan (05/25/2019 9:12 [...] ENT evaluation. Goiter 03/18/1994 Overview (06/14/2016): Goiter Current Treatment and Therapy Plans No current plan information found. Past Treatment and Therapy Plans Oncology Chemotherapy Treatment Plan Name Start Date Discontinue Date Treatment Medications Discontinue Reason Plan Provider Cycles TC: (DOCEtaxe l / Cyclophos phamide) 21 Day Cycles - Breast 1/16/202 4 08/18/2023 cycloPHOSphamide IVPB in 250 mL (vial 200 mg/mL)([id number])DOCEta xel (TAXOTERE) IVPB in 250 mL (vial 20mg/mL) Therapy Complete Lynn Yip MD 4 of 4 cycles started Radiation Treatments * Course C1 R BREAST 202306/26/2023 - 07/23/2023 Treatment Period Energy Fraction Dose Fractions Total Dose Plans Planned R BRS BST 07/20/2023 - 07/23/2023 250 4 / 1,000 R BREAST 06/26/2023 - 07/17/2023 266 16 / 4,256 Reference Points Delivered R BREAST BOOST 07/20/2023 - 07/23/2023 1,000 [id number] 06/26/2023 - 07/17/2023 4,256 Lifetime Dose Tracking * Chemical Lifetime Dose Automatic Entry Manual Entr y cyclophosphamide 2,415.151 mg/m2 (5,440 mg) 2,415.151 mg/m2 (5,440 mg) 0 mg/m2 (0 mg)
--- OUTSIDE RECORDS SUMMARY | 2024-05-11 08:06 | XMS_ITS | Encounter Summary ---
Author Organization [facility] Address [address] [place] [address] Care Team Providers Care Wire Dropper Name Role Phone Julissa Lehman MD Primary Care Provider [phone] Encounter Details Date Type Department Care Team (Late st Contact Info) Description 07/05/2020 Lab Requisition [facility] [address] [facility] [place] [address] Edmund Wang Jr., MD [address] [facility] [address] [place] [address] Social History Tobacco Use Types Packs/Day Years Used Date Smoking Tobacco: Never Assessed Sex and Gender Information Value Date Recorded Sex Assigned at Not on file Gender Identity Not on file Sexual Orientation Not on file documented as of this encounter Plan of Treatment Not on file documented as of this encounter Procedures Procedure Name Priority Date/Time Associated Diagnosis Comments DERMATOPATHOLOGY Routine 07/03/2020 12:0 0 AM CDT documented in this encounter Results * DERMATOPATHOLOGY (07/03/2020 12:00 AM CDT) Case Report Dermatopathology Report Case: [id number] Authorizing Provider: Edmund Wang Jr., MD Collected: 07/03/2020 12:00 AM Ordering Location: [facility] Received: 07/05/2020 05:38 AM Pathologist: [...] of a non-oriented ellipse of skin measuring [id number], bisected. Jar 0. 12:39 PM CDT DERMATOPATHOLOGY [...] characteristic determined by the Dermatopathology Laboratory at [facility], directed by Dr. Micha Esteban. These tests need not be, and therefore are not, approved by the [place] Food and Drug Administration. The tests are used for clinical purposes. Billing Codes Specimen Charges Stain Charges 75624 1 12:39 PM CDT DERMATOPATHOLOGY LABORATORY Embedded Images 12:39 PM CDT DERMATOPATHOLOGY LABORATORY Pathology/Cytolog y TISSUE SPECIMEN FROM SKIN / Unknown 07/03/2020 07/05/2020 5:38 AM CDT Edmund Wang Jr., MD LAB - PATHOLOGY /CYTOLOGY ORDERABLES DERMATOPATHOLOGY LABORATORY [facility] - Department of Dermatology [address], [address] [phone] documented in this encounter Visit Diagnoses Not on filedocumented in this encounter Care Teams Wire Dropper Relationship Specialty Start Date End Date Julissa Lehman MD [address] [place] [address] [place] [id number] PCP - General 07/04/20 documented as of this encounter
[2024-05-11 09:13] LABS: Basophils Percent Auto 0.6 % (0.2-1.2); Eosinophils Absolute Auto 0.1 K/mm3 (0-0.3); Hematocrit 41.8 % (37.0-47.0); Immature Granulocyte Absolute 0.03 K/mm3 (0.00-0.031); Immature Granulocyte Percent A 0.5 % (0-0.5); Lymphocytes Absolute Auto 2.18 K/mm3 (0.9-3.2); Mean Corpuscular HGB Conc 33.5 g/dl (32-36); Mean Corpuscular Hemoglobin 29.5 pg (26-34); Mean Corpuscular Volume 88.2 fl (80-100); Mean Platelet Volume 10.7 fl (7.4-10.4); Monocytes Absolute Auto 0.6 K/mm3 (0.1-0.6); Monocytes Percent Auto 9.2 % (2.6-8.5); Neutrophils Absolute Auto 3.4 K/mm3 (1.3-6.7); Neutrophils Percent Auto 53.7 % (45.5-73.1); Platelet Count Result 268 k/mm3 (150-375); Red Blood Count 4.74 M/mm3 (4.2-5.4); Red Cell Distribution Width 12.9 % (11.5-14.5); White Blood Count 6.4 K/mm3 (4.5-10.0)
[2024-05-11 09:26] LABS: Albumin Level 4.9 g/dL (3.5-5.1); Estimated Glomerular Filt Rate 60; Glucose 105 mg/dL (65-110)
[2024-05-11 09:29] LABS: Urine Cotinine NEGATIVE
[2024-05-11 10:25] LABS: MRSA (PCR) NOT DETECTED (NOT DETECTE)
== END 2024-05-11 07:54 | disposition home or self-care (01) ==
LOC: ANHSURGERY 07:58
PROVIDERS: PCP Family Medicine; Visit Provider Orthopaedic Surgery
DX: M17.0 Bilateral primary osteoarthritis of knee (principal)
CPT/HCPCS: 80307; 82040; 82565; 82947; 85025; 87641

== ENCOUNTER 2024-06-07 01:23 | Day surgery (SDC) | payer OTHER, SELFPAY ==
--- NOTE | 2024-05-11 07:45 | PC.NURSE ---
Report to the Outpatient Waiting Room, entrance under the green pavilion located off [facility], at time __8:30 am on date __06/07/24 . Planned Procedure Time: _10:30 am .? Time changes happen often and if your time is changed the preop area will call you the afternoon before. - You and your visitor will be asked to self-screen and do not enter if you have any COVID symptoms. Please call surgeon if you need to reschedule. - A mask is optional within the hospital at this time. Patients may have clear liquids (water, carbonated beverages, clear teas, apple juice) until 3 hours prior to surgery with a maximum of 20 ounces. - No food from midnight until time of surgery and no smoking, or chewing tobacco (or any form of nicotine). No chewing gum, candy or mints. TOTAL JOINT CLASS TODAY 05/11/24 AT 10 AM Take only the following medications with a SIP of water on the morning of surgery: __ALPRAZOLAM IF NEEDED,LEVOTHYROXINE,SERTRALINE DO NOT STOP ANY OF YOUR OTHER PRESCRIPTION MEDICATIONS PRIOR TO SURGERY EXCEPT THE FOLLOWING Hold all vitamins and supplements for 3 days per anesthesiologist.06/03/24 Medications to discontinue per physician MELOXICAM 7 DAYS PRE OP PER DR PARK Date to take last dose 05/30/24 Please no make-up, nail cameroonian, hairspray, perfume, deodorant, or body powder the day of surgery.? No jewelry (including any body piercings) or valuables the day of surgery, leave them at home.? Please take a shower or bath the night before, or the morning of, surgery with an antibacterial soap.? Wear comfortable, loose fitting clothing.? Children are encouraged to wear pajamas. - Jewelry must be removed prior to entering the operating room.? Rings and piercings that are not removed may be cut off. - The hospital will not accept responsibility for valuables.? - Please leave all valuables, including medications, at home the day of surgery. If you are going home after surgery, a licensed class a truck driver must drive you home.? - NO public transportation without another adult if you receive anesthesia. - We recommend that an adult stay with you for 24 hours following discharge. - We also recommend that you do not drive, make important decision, drink alcoholic beverages, or take any drugs that were not prescribed by your health care provider for at least 24 hours after your discharge time. Follow any additional instructions given to you from your surgeon. verbal and written instructions given to __PATIENT and asked if any additional questions and then verbalized understanding. Patient advised to call surgeon office or pre surgery nurse liaison [phone] if any additional questions.
[2024-05-11 08:02] VITALS: BMI 36.5
[2024-05-11 08:52] VITALS: BP 166/84; PULSE 72; RESP 18; TEMP 36.9; O2SAT 97
[2024-06-07] VITALS (12 sets, daily range): BP systolic 109–165; BP diastolic 60–86; PULSE 75–90; RESP 14–20; TEMP 36.7–36.9; O2SAT 93–99
--- NOTE | ~2024-06-07 | XR_ITS ---
Left Knee Technique: Portable AP and crosstable lateral views Clinical History: Status post TKR Findings: Patient is status post total knee replacement. Orthopedic hardware alignment appears anatom ic. No hardware complication is evident. Subcutaneous emphysema and swelling is likely postoperative in nature. No acute osseous fracture is seen. Impression: Status post total knee replacement, without evidence of hardware complication. Reviewed, dictated and finalized at location . Impression: Status post total knee replacement, without evidence of hardware complication.
--- OUTSIDE RECORDS SUMMARY | 2024-06-07 01:27 | XMS_ITS ---
Author Organization [facility] Address [address] [place] [address] Care Team Providers Care Lens Examiner Name Role Phone Arnoldo Saldana MD Primary Care Provider [phone] Lynn Yip MD Unavailable Juan Bateman MD Unavailable Bernadette Ma MD Unavailable [phone] Alli Stevens MD PhD Unavailable [phone] Active Problems Problem Noted Date Diagnosed Date Family history of colonic polyps 05/13/2024 Encounter for medication management 10/06/2023 Assessment & [...] from 02/17/2023:Stage IA(pT1b, pN0, cM0, G3, ER+, [place]+, HER2-) - Signed by Iron Currie MD on 02/17/2023 Thyroid nodule 2022 Assessment & Plan (2022 3:35 PM CDT): Thyroid Ultrasound Epistaxis 2022 Assessment & Plan (2022 3:35 PM CDT): Nasal saline spray (Simply saline, Little Remedies, [place], [place]) 2 second sprays or 2 squeezes into [...] Nasal saline spray (Simply saline, Little Remedies, [place], [place]) 2 second sprays or 2 squeezes into [...] (12/23/2019): Added automatically from request for surgery [id number] Family history of colon cancer 12/23/2019 Overview (12/23/2019): Added automatically from request for surgery [id number] Anxiety 05/25/2019 Assessment & Plan (05/25/2019 9:12 [...] Cyclophos phamide) 21 Day Cycles - Breast 4 08/18/2023 cycloPHOSphamide IVPB in 250 mL [...]
--- OUTSIDE RECORDS SUMMARY | 2024-06-07 01:27 | XMS_ITS | Referral Summary ---
Author Organization [facility] Address [address] [place] [address] Care Team Providers Care Arc Welding Machine Operator Name Role Phone Arnoldo Saldana MD Primary Care Provider [phone] Lynn Yip MD Unavailable Juan Batmean MD Unavailable Bernadette Ma MD Unavailable [phone] Alli Stevens MD PhD Unavailable [phone] Encounters Date Type Department Care Team Description 06/06/[address] [facility] Gastroenterology [address] [place] [address] Office Building [address], [address] [place] [address] Lorelei Abad, RN scheduling 06/03/[address] [facility] Gastroenterology [address] [place] [address] Office [address], [address] [place] [address] Lorelei Abad, RN pt call 05/13/[address] [facility] Gastroenterology at [address] [place] [phone] Yvonne Beebe 05/03/2024 10:15 AM PAINT STRIPPER Office Visit [facility] Oncology [address] [facility] [address] [place] [address] Lynn Yip MD Malignant neoplasm of upper-inner quadrant of right breast in female, estrogen receptor positive (HCC) 04/08/2024 Orders Only [facility] [address] Arnoldo Saldana MD 04/01/2024 10:30 AM PAINT STRIPPER Lab [facility] at [address] [place] [phone] Thyroid dysfunction 04/01/2024 9:45 AM PAINT STRIPPER Lab [facility] at [address] [place] [address] Pre-op testing; Malignant neoplasm of upper-inner quadrant of right breast in female, estrogen receptor positive (HCC) 04/01/2024 10:15 AM PAINT STRIPPER Office Visit [facility] Oncology [address] [place] [address] [place] [phone] Lynn Yip MD Malignant neoplasm of upper-inner quadrant of right breast in female, estrogen receptor positive (HCC) 04/01/2024 9:15 AM PAINT STR[address]PER Lab [facility] On[facility] [address] [place] [address] [place] [phone] Malignant neoplasm of upper-inner quadrant of right breast in female, estrogen receptor positive (HCC) 03/31/2024 Orders Only [facility] Information Management [address] [place] [address] Scanning, Provider 03/31/[address] [facility] [address] [place] [address] [place] [phone] Lynn Schuler RMA lab orders 03/31/[address] [facility] Oncology [address] [place] [address] [place] [phone] Lynn Yip MD Pre-op testing (Primary Dx); Malignant neoplasm of upper-inner quadrant of right breast in female, estrogen receptor positive (HCC) 03/17/2024 Telephone [facility] [address] [address] Arnoldo Saldana MD 03/14/2024 Telephone [facility] [address] [address] Arnoldo Saldana MD 03/10/2024 Orders Only [facility] Health Information Management [address] [place] [address] Scanning, Provider from Last 3 Months Allergies No known active allergies Medications ALPRAZolam (XANAX) 0.5 mg tabletIndicati ons:Generalize d anxiety disorder Take 1 tablet (0.5 mg total) by mouth 3 (three) times a day as needed for anxiety DX: F41.9 30 tablet 3 Active fezolinetant (VEOZAH) tablet tabletIndicati ons:Vasomotor Symptoms associated with Menopause Take 1 tablet (45 mg total) by mouth daily 30 tablet 1 4 Active Additional Information Patient not taking.Reported on 02/12/2024 meloxicam (MOBIC) 15 mg tablet Take 1 tablet (15 mg total) by mouth daily 30 tablet 11 4 12/02/19 25 Active traMADoL (ULTRAM) 50 mg tablet Take by mouth every 6 (six) hours as needed 4 Active magnesium gluconate 200 mg tabletIndicati ons:hypomagnes emia 1 tablet (200 mg total) Active multivitamin tabletIndicati ons:Vitamin Deficiency Prevention Take 1 tablet by mouth Active omega-3 fatty acids-fish oil 300-1,000 mg capsule Take 2 capsules (2 g total) by mouth daily Active sertraline (ZOLOFT) 100 mg tablet Take 1 tablet (100 mg total) by mouth daily 90 tablet 4 4 01/06/20 25 Active temazepam (RESTORIL) 15 mg capsuleIndicat ions:Insomnia Take 1 capsule (15 mg total) by mouth nightly as needed for sleep 30 capsule 4 Active levothyroxine (SYNTHROID) 137 mcg tablet Take 1 tablet (137 mcg total) by mouth daily 90 tablet 4 5 Active omeprazole (PriLOSEC) 20 mg capsule TAKE 1 CAPSULE(20 MG) BY MOUTH DAILY 30 capsule 3 5 Active exemestane (AROMASIN) 25 mg tablet Take 1 tablet (25 mg total) by mouth daily Take after a meal. 90 tablet 3 5 05/09/19 26 Active exemestane (AROMASIN) 25 mg tablet Take 1 tablet (25 mg total) by mouth daily Take after a meal. 30 tablet 5 5 05/14/19 25 Discontin ued(Reord er) Active Problems Problem Noted Date Diagnosed Date [...] from 02/17/2023:Stage IA(pT1b, pN0, cM0, G3, ER+, IA+, HER2-) - Signed by Iron Currie MD on 02/17/2023 Thyroid nodule 2022 Assessment & Plan (2022 3:35 PM CDT): Thyroid Ultrasound Epistaxis 2022 Assessment & Plan (2022 3:35 PM CDT): Nasal saline spray (Simply saline, [place], [place], [place]) 2 second sprays or 2 squeezes into [...] Nasal saline spray (Simply saline, [place], [place], [place]) 2 second sprays or 2 squeezes into [...] (12/23/2019): Added automatically from request for surgery [id number] Family history of colon cancer 12/23/2019 Overview (12/23/2019): Added automatically from request for surgery [id number] Anxiety 05/25/2019 Assessment & Plan (05/25/2019 9:12 [...] staff should administer the PHQ-9) 0 02/12/2024 PHQ-9 Answer Date Recorded PHQ-9 Total Score 10 01/06/2024 Personal Safety Answer Date Recorded Have you ever been in or are you currently in a harmful physical or emotional relationship or is someone making you feel afraid or unsafe? Denies 01/19/2023 Comments No Sex and Gender Information Value Date Recorded Sex Assigned at Not on file Legal Sex Female 1:41 AM PAINT STRIPPER Gender Identity Not on file Sexual Orientation Straight 08/10/2019 7: 45 PM CDT Last Filed Vital Signs Vital Sign Reading Time Taken Comments Blood Pressure 147/84 05/03/2024 10:20 AM PAINT STRIPPER Pulse 69 05/03/2024 10:20 AM PAINT STRIPPER Temperature 36.8 C (98.2 F) 05/03/2024 10:20 AM PAINT STRIPPER Respiratory Rate 18 05/03/2024 10:2 0 AM PAINT STRIPPER Oxygen Saturation 99% 05/03/2024 10: 20 AM PAINT STRIPPER Inhaled Oxygen Concentration - - Weight 107.9 kg (237 lb 12.8 oz) 2024 10:20 AM PAINT STRIPPER Height 169.7 cm (5' 6.81 ) 04/01/2024 9:30 AM CS T Body Mass Index 37.46 04/01/2024 9:30 AM PAINT STRIPPER Plan of Treatment Upcoming Encounters Date Type Department Care Team (Late st Contact Info) Description 02/08/2025 7:55 AM PAINT STRIPPER Hospital Encounter [facility] [address] [place] [address] Pravin Macias MD [address] [place] [address] [address] [address] 02/08/2025 7:55 AM PAINT STRIPPER - 02/08/2025 8:25 AM PAINT STRIPPER Surgery [facility] [address] [place] [address] Pravin Macias MD [address] [place] [address] DR POSEY [address] [place] [address] COLONOSCOPY Scheduled Procedures Name Priority Associated Diagnoses Date/Ti me COLONOSCOPY Encounter for screening colonoscopy Family history of colonic polyps 02/08/2025 7:55 AM PAINT STRIPPER Medical Devices Implanted Type Area Director Of Instruction Device Identifier Shelf Expiration Date Model / Serial / Lot Bard Peripheral Vascular Marker Breast Dual Trigger Pva Ultraclip [id number] - [id number] - [id number] Implanted:Qty: 1 on 11/21/2022 by Nasim Peñaloza MD at [facility] Breast Right: Breast [employer] 03/05/2025 [id number] / [id number] / Description:US guided right breast biopsy in 2:00 area; 3cmfn; cores x3 [employer] Ultraclip Bard 17ga 10cm 2 Trigger Permanent Ultrasound [id number] - [id number] - [id number] Implanted:Qty: 1 on 11/21/2022 by Nasim Peñaloza MD at [facility] Breast Right: Breast [employer] 11/03/2024 [id number] / [id number] / Description:US guided right axillary lymph node with mild cortical thickening (4 mm in thickness); cores x5 [employer] Marker Tissue Needle Delivery Spiral Capped Seed [employer] Stainless Steel Low Nickel Sentimag [id number] - [id number] Implanted:Qty: 1 on 01/12/2023 at [facility] [employer] [id number] / / Procedures Procedure Name Priority Date/Time Associated Diagnosis Comments GLUCOSE Routine 05/11/2024 12:01 PM PAINT STRIPPER URINE CREATININE Routine 05/11/2024 12:0 0 PM PAINT STRIPPER COTININE Routine 05/11/2024 11:49 AM PAINT STRIPPER CBC WITH AUTO DIFFERENTIAL Routine 05/11/2024 11:40 AM PAINT STRIPPER MRSA CULTURE Routine 05/11/2024 EGFR Routine 04/01/2024 9:23 AM PAINT STRIPPER Malignant neoplasm of upper-inner quadrant of right breast in female, estrogen receptor positive (HCC) DIFFERENTIAL AUTO Routine 04/01/2024 9:2 3 AM PAINT STRIPPER Malignant neoplasm of upper-inner quadrant of right breast in female, estrogen receptor positive (HCC) T4, FREE Routine 04/01/2024 9:23 AM PAINT STRIPPER Thyroid dysfunction TSH Routine 04/01/2024 9:23 AM PAINT STRIPPER Thyroid dysfunction CBC WITH AUTO DIFFERENTIAL Routine 04/01/2024 9:23 AM PAINT STRIPPER Malignant neoplasm of upper-inner quadrant of right breast in female, estrogen receptor positive (HCC) COMPREHENSIVE METABOLIC PANEL Routine 04/01/2024 9:23 AM PAINT STRIPPER Malignant neoplasm of upper-inner quadrant of right breast in female, estrogen receptor positive (HCC) HEMOGLOBIN A1C Routine 04/01/2024 9:23 AM PAINT STRIPPER Pre-op testing Malignant neoplasm of upper-inner quadrant of right breast in female, estrogen receptor positive (HCC) SCAN - RADIOLOGY/IMAGING 03/31/2024 SCAN - RADIOLOGY/IMAGING 03/10/2024 PAP AND HPV, REFLEX TO HPV GENOTYPES Routine 02/12/2024 12:28 PM PAINT STRIPPER Well woman exam DIAGNOSTIC MAMMOGRAM BILATERAL W ALLEN Schedule Routine, Read Routine (OP Routine) 09/01/2023 3:00 PM CDT Malignant neoplasm of upper-inner quadrant of right breast in female, estrogen receptor positive (HCC) COLONOSCOPY 02/06/2020 8:09 AM PAINT STRIPPER from Last 3 Months or Most Recently Relevant to Health Maintenance Results * Glucose (05/11/2024 12:01 PM PAINT STRIPPER) us Historical Provider LAB BLOOD ORDERABLES Edna l Result EXTERNAL LAB * Urine creatinine (05/11/2024 12:00 PM PAINT STRIPPER) Historical Provider MD LAB BLOOD ORDERABLES Edna l Result Performing Organization Address [facility] Co de Phone Number EXTERNAL LAB * COTININE (05/11/2024 11:49 AM PAINT STRIPPER) Historical Provider MD LAB BLOOD ORDERABLES Edna l Result Performing Organization Address City/[facility] Co de Phone Number EXTERNAL LAB * (ABNORMAL) CBC with auto differential (05/11/2024 11:40 AM PAINT STRIPPER) SCRIBED WBC 6.4 4.5 - 10.0 k/cumm EXTERNAL LAB SCRIBED RBC 4.74 4.2 - 5.4 m/cumm EXTERNAL LAB SCRIBED Hemoglobin 14.0 12.0 - 15.0 g/dL EXTERNAL LAB SCRIBED Hematocrit 41.8 37.0 - 47.0 % EXTERNAL LAB SCRIBED MCH 29.5 26 - 34 pg EXTERNAL LAB SCRIBED MCHC 33.5 32 - 36 g/dL EXTERNAL LAB SCRIBED RDW 12.9 11.5 - 14.5 g/dl EXTERNAL LAB SCRIBED RDW SD N/A N/A - N/A fL EXTERNAL LAB SCRIBED RDW CV N/A N/A - N/A % EXTERNAL LAB SCRIBED Platelets 268 150 - 375 k/cumm EXTERNAL LAB SCRIBED MPV 10.7(A) 7.4 - 10.4 fL EXTERNAL LAB SCRIBED NRBC 0.0 0.0 - 0.2 /100 WBC EXTERNAL LAB SCRIBED Lymphocytes 34.0 15.3 - 44.2 % EXTERNAL LAB SCRIBED Atypical Lymphocytes N/A N/A - N/A % EXTERNAL LAB SCRIBED Monocytes 9.2(A) 2.6 - 8.5 % EXTERNAL LAB SCRIBED Neutrophils 53.7 45.5 - 73.1 % EXTERNAL LAB SCRIBED Imm Granulocytes 0.5 0.0 - 5 % EXTERNAL LAB SCRIBED Eosinophils 2.0 0 - 4.4 % EXTERNAL LAB SCRIBED Basophils 0.6 0.2 - 1.2 % EXTERNAL LAB SCRIBED NRBC Abs 0.000 0.0 - 0.012 K/cumm EXTERNAL LAB SCRIBED Lymphocytes Abs 2.18 0.9 - 3.2 k/cumm EXTERNAL LAB SCRIBED Monocytes Abs 0.6 0.1 - 0.6 k/cumm EXTERNAL LAB SCRIBED Neutrophils Abs 3.4 1.3 - 6.7 k/cumm EXTERNAL LAB SCRIBED Imm Granulocytes Abs 0.03 0.00 - 0.031 EXTERNAL LAB SCRIBED Eosinophils Abs 0.1 0 - 0.3 k/cumm EXTERNAL LAB SCRIBED Basophils Abs 0.0 0.0 - 0.1 k/cumm EXTERNAL LAB SCRIBED Bands N.A N/A - N/A % EXTERNAL LAB SCRIBED Segs N/A N/A - N/A % EXTERNAL LAB SCRIBED Total Cells Diffed N/A N/A - N/A EXTERNAL LAB SCRIBED MCV 41.8 37.0 - 47.0 fl EXTERNAL LAB Blood [facility] Provider MD LAB BLOOD ORDERABLES Edna l Result EXTERNAL LAB * MRSA CULTURE (05/11/2024) 05/11/2024 [facility] Provider MD LAB BLOOD ORDERABLES Edna l Result EXTERNAL LAB * eGFR (04/01/2024 9:23 AM PAINT STRIPPER) eGFR 72 >=60 mL/min/1. 73 m2 Comment: [...] was last reviewed 2021. Testing performed by: [facility], [address] [place] [address] Blood 04/01/2024 9:23 AM PAINT STRIPPER 04/01/2024 9:41 AM PAINT STRIPPER us Lynn Yip MD LAB BLOOD ORDERABLES Final Resul t [place] [address] [address]. Department [place] [address] * Differential, auto (04/01/2024 9:23 AM PAINT STRIPPER) Neutrophil abs 3.7 1.5 - 6.5 K/cumm Comment:Testing performed by : [facility], [facility], [address] [place] [address] Imm gran abs 0.0 0.0 - 0.1 K/cumm LIBORIO LUTZWCALEB Comment:Testing performed by : [facility], [facility], [address] [place] [address] Lymphocyte abs 2.3 0.8 - 3.3 K/cumm LIBORIO RAMSEY Comment:Testing performed by : [facility], [facility], [address] [place] [address] Monocyte abs 0.6 0.2 - 0.8 K/cumm LIBORIO RAMSEY Comment:Testing performed by : [facility], [facility], [address] [place] [address] Eosinophil abs 0.2 0.0 - 0.5 K/cumm LIBORIO LUTZWCALEB Comment:Testing performed by : [facility], [facility], [address] [place] [address] Basophil abs 0.1 0.0 - 0.1 K/cumm CERNER BJWCH Comment:Testing performed by : [facility], [facility], [address] [place] [address] Neutrophil pct 54.6 % CERNER BJWCH Comment: Interpretive Data Percent cell count reference ranges are not reported, since discordance with absolute values may lead to misinterpretation of CBC data. Current Interpretive Data was last revised on 2017. Testing performed by: [facility], [facility], [address] [place] [address] Imm gran pct 0.4 % CERNER BJWCH Comment: Interpretive Data Percent cell count reference ranges are not reported, since discordance with absolute values may lead to misinterpretation of CBC data. Current Interpretive Data was last revised on 2017. Testing performed by: [facility], [address] [place] [address] Lymphocyte pct 33.5 % CERNER BJWCH Comment: Interpretive Data Percent cell count reference ranges are not reported, since discordance with absolute values may lead to misinterpretation of CBC data. Current Interpretive Data was last revised on 2017. Testing performed by: [facility], [facility], [address] [place] [address] Monocyte pct 8.3 % CERNER BJWCH Comment: Interpretive Data Percent cell count reference ranges are not reported, since discordance with absolute values may lead to misinterpretation of CBC data. Current Interpretive Data was last revised on 2017. Testing performed by: [facility], [facility], [address] [place] [address] Eosinophil pct 2.2 % CERNER BJWCH Comment: Interpretive Data Percent cell count reference ranges are not reported, since discordance with absolute values may lead to misinterpretation of CBC data. Current Interpretive Data was last revised on 2017. Testing performed by: [facility], [facility], [address] [place] [address] Basophil pct 1.0 % CERNER BJWCH Comment: Interpretive Data Percent cell count reference ranges are not reported, since discordance with absolute values may lead to misinterpretation of CBC data. Current Interpretive Data was last revised on 2017. Testing performed by: [facility] 2, [address] [place] [address] Blood 04/01/2024 9:23 AM PAINT STRIPPER 04/01/2024 9:29 AM PAINT STRIPPER us Lynn Yip MD LAB BLOOD ORDERABLES Final Resul t [facility] [address] [facility] [place] [address] * CBC with auto differential (04/01/2024 9:23 AM PAINT STRIPPER) WBC 6.7 3.8 - 9.9 K/cumm Comment:Testing performed by : [place] [address], [address] [place] [address] Hgb 14.9 11.9 - 15.5 g/dL LIBORIO LUTZW Comment:Testing performed by : [address] [place] [address] Hct 44.7 35.6 - 45.5 % LIBORIO LUTZW Comment:Testing performed by : [address] [place] [address] Plt 284 150 - 400 K/cumm LIBORIO LUTZWCH Comment:Testing performed by : [place] [address], [address] [place] [address] MPV 10.5 9.1 - 12.3 fL LIBORIO RAMSEY Comment:Testing performed by : [place] [address], [address] [place] [address] RBC 5.09 3.90 - 5.20 M/cumm LIBORIO LUTZWCH Comment:Testing performed by : [place] [address], [address] [place] [address] MCV 88 81 - 96 fL LIBORIO KENNEDY Comment:Testing performed by : [facility], [facility], [address] [place] [address] MCH 29.3 27.1 - 33.3 pg LIBORIO RAMSEY Comment:Testing performed by : [facility], [facility], [address] [place] [address] MCHC 33.3 32.3 - 35.7 g/dL LIBORIO RAMSEY Comment:Testing performed by : [facility], [facility], [address] [place] [address] RDW CV 12.6 11.1 - 14.9 % LIBORIO RAMSEY Comment:Testing performed by : [facility], [facility], [address] [place] [address] RDW SD 41.1 35.7 - 48.1 fL LIBORIO RAMSEY Comment:Testing performed by : [facility], [facility], [address] [place] [address] Blood 04/01/2024 9:23 AM PAINT STRIPPER 04/01/2024 9:29 AM PAINT STRIPPER us Lynn Yip MD LAB BLOOD ORDERABLES Final Resul t Performing Organization Address [facility] Co de Phone Number [facility] [address] [facility]. Department [place] [address] * (ABNORMAL) TSH (04/01/2024 9:23 AM PAINT STRIPPER) Thyroid Stimulating Hormone 11.90(H) 0.30 - 4.20 mcIUnit/mL Comment:Testing performed by : [facility], [address] [place] [address] Blood 04/01/2024 9:23 AM PAINT STRIPPER 04/01/2024 9:41 AM PAINT STRIPPER us Arnoldo Saldana MD LAB BLOOD ORDERABLES Edna l Result [facility] [address] [address] [facility] [place] [address] * T4, free (04/01/2024 9:23 AM PAINT STRIPPER) [facility] T4 1.24 0.90 - 1.70 ng/dL Comment:Testing performed by : [facility], [address] [address] [facility], [place] [address] Blood 04/01/2024 9:23 AM PAINT STRIPPER 04/01/2024 9:41 AM PAINT STRIPPER us Arnoldo Saldana MD LAB BLOOD ORDERABLES Edna l Result Performing Organization Address [facility] de Phone Number [facility] [address] [address] [employer] [facility] [place] [address] * Hemoglobin A1c (04/01/2024 9:23 AM PAINT STRIPPER) [facility] Hgb A1C 5.4 4.0 - 5.6 % Comment:Testing performed by : [facility], [address] [employer], [place] [address] Estimated Average Glucose 108 mg/dL LIBORIO BJWCH Comment: The ADA recommends reporting an estimated Average Glucose (eAG) with all Hemoglobin A1c results using the equation derived from a study of 507 normal and diabetic adults. Minority populations were underrepresented and children were not included. (Diabetes Care 31:5797-2142, 2008). The eAG is not equivalent to a fasting glucose. Testing performed by: [facility], [address] [employer], [place] [address] Blood 04/01/2024 9:23 AM PAINT STRIPPER 04/01/2024 9:41 AM PAINT STRIPPER us Lynn Yip MD LAB BLOOD ORDERABLES Final Resul t Performing Organization Address [facility] Co de Phone Number [facility] [address] [address] [facility] [place] [address] * Comprehensive metabolic panel (04/01/2024 9:23 AM PAINT STRIPPER) Sodium 139 135 - 145 mmol/L Comment:Testing performed by : [facility], [address], [place] [address] Potassium, pl 4.3 3.3 - 4.9 mmol/L CERNER BJWCH Comment:Testing performed by : [facility], [address], [place] [address] Chloride 102 97 - 110 mmol/L CERNER BJWCH Comment:Testing performed by : [facility], [address], [place] [address] CO2 26 22 - 32 mmol/L CERNER BJWCH Comment:Testing performed by : [facility], [address], [place] [address] Anion gap 12 2 - 15 mmol/L CERNER BJWCH Comment:Testing performed by : [facility], [address], [place] [address] BUN 19 6 - 25 mg/dL CERNER BJWCH Comment:Testing performed by : [facility], [address], [place] [address] Creatinine 0.94 0.60 - 1.10 mg/dL CERNER BJWCH Comment:Testing performed by : [facility], [address], [place] [address] Glucose 100 70 - 199 mg/dL CERNER BJCH Comment: Interpretive Data Fasting glucose >/= 126 [...] classification and Diagnosis of Diabetes Diabetes Care 2021; 46: S19-S40. Current interpretive data was last revised 2022. Testing performed by: [facility], [address], [place] [address] Calcium 10.1 8.5 - 10.3 mg/dL CERNER BJWCH Comment:Testing performed by : [facility], [address], [place] [address] Bilirubin, total 0.5 0.1 - 1.2 mg/dL CERNER BJWCH Comment:Testing performed by : [facility], [address], [place] [address] Protein, pl 8.4 6.5 - 8.5 g/dL CERNER BJWCH Comment:Testing performed by : [facility], [address], [place] [address] Albumin 4.6 3.5 - 5.0 g/dL CERNER BJWCH Comment:Testing performed by : [facility], [address], [place] [address] Alk phos 94 40 - 130 Units/L CERNER BJWCH Comment:Testing performed by : [facility], [address], [place] [address] ALT 16 7 - 45 Units/L CERNER BJWCH Comment:Testing performed by : [facility], [address], [place] [address] AST 15 10 - 45 Units/L CERNER BJWCH Comment:Testing performed by : [facility], [address], [place] [address] Blood 04/01/2024 9:23 AM PAINT STRIPPER 04/01/2024 9:41 AM PAINT STRIPPER us Lynn Yip MD LAB BLOOD ORDERABLES Final Resul t [facility] [address] Department [place] [address] * SCAN - RADIOLOGY/IMAGING (03/31/2024) Anatomical Region Laterality Modality Other us Provider Scanning Final Result * SCAN - RADIOLOGY/IMAGING (03/10/2024) Anatomical Region Laterality Modality Other us Provider Scanning Final Result * Pap and HPV, reflex to HPV Genotypes (02/12/2024 12:28 PM PAINT STRIPPER) Clinical indication Comment [facility] - 01 Comment: NEGATIVE FOR INTRAEPITHELIAL LESION OR MALIGNANCY. CELLULAR CHANGES ASSOCIATED WITH ATROPHY AND INFLAMMATION ARE PRESENT. THIS SPECIMEN WAS RESCREENED PART OF OUR STONE CRUSHER OPERATOR PROGRAM. Specimen adequacy: Comment [facility] - 01 Comment:Satisfactory for patti luation. Clinician provided ICD10 Comment [facility] 02 Comment:Z01.419 Performed by Comment [facility] - 01 Comment:Aaron Moulton, Cy totechnologist (ASC) QC reviewed by Comment [facility] - 01 Comment:Tom Odom, Sup erv[facility]ory [facility] Outreach Coordinator (ASC) . . [facility] - 01 Note: Comment [...] not performed. Thin prep-Endocervical 02/12/2024 12:28 PM PAINT STRIPPER 02/12/2024 Narrative [facility] - 02/25/2024 10:09 AM PAINT STRIPPER Performed at: - Lab[address] [id number] [employer]: Deanne Olivo MD, Phone: [phone] Performed at: - [address] [id number] [employer]: Caroline Dupont MD, Phone: [phone] Performed at: - [address] [id number] [employer]: Caroline Dupont MD, Phone: [phone] Specimen Comment: [id number] Specimen Comment: No. of containers..01 ThinPrep Vial [...] it. Electronically signed by: Lorelei Faustin M.D. us Bernadette Ma MD IMG MAMMO PROCEDURES Fi nal Result * COLONOSCOPY (02/06/2020 8:09 AM PAINT STRIPPER) Anatomical Region Laterality Modality Other Narrative Procedure Note Aquiles Tavarez MD - 02/06/2020 8:09 AM CST [facility] Patient Name: Sharita Alejandre Procedure Date: 02/06/2020 8:09 AM Date of : 1970 Admit Type: Outpatient Age: 49 Gender: Female Attending MD: Aquiles Tavarez M.D. Room: [facility] ENDOSCOPY ROOM 2 Note Status: Finalized Patient [...] was passed under direct vision. The Colonoscope [id number] was introduced through the anusand advanced to [...] malignant neoplasm of colon CPT copyright 2017 [employer]. All rights reserved. The codes documented in this report are preliminary and upon third shift lieutenant reviewmay be revised to meet current compliance requirements. Recognized by the [employer] for promoting quality in endoscopy Aquiles Tavarez MD ENDOSCOPY PROCEDURES Final Re sult from Last 3 Months or Most Recently Relevant to Health Maintenance Insurance [employer] [facility] [place] [address] [facility] Advance Directives For more information, please contact: [phone] * Full Code (Latest Code Status on File) Date Activated Date Inactivated Comments 02/06/2020 8:07 AM 02/06/2020 1:50 PM Care Teams Arc Welding Machine Operator Relationship Specialty Start Date End Date Arnoldo Saldana MD [address] [place] [address] PCP - General 06/06/16 Lynn Yip MD [address] [facility] [address] [place] [address] Medical Oncologist/Glass Unloading Equipment Tender Medical Oncology 02/03/23 Juna Bateman MD [address] [facility] [address] [facility] [place] [address] Radiation Oncologist Radiation Oncology 07/27/23 Bernadette Ma MD [address] [facility] [address] DIV [place] [address] Surgeon Surgical Oncology 07/27/23 Alli Stevens MD PhD [address] [facility] [address] [place] [address] Radiation Oncologist Radiation Oncology 07/27/23
--- OUTSIDE RECORDS SUMMARY | 2024-06-07 01:27 | XMS_ITS | Clinical Summary ---
Author Organization [facility] Address [address] [place] [address] Care Team Providers Care Fur Scraper Name Role Phone Arnoldo Saldana MD Primary Care Provider [phone] Lynn Yip MD Unavailable Juan Bateman MD Unavailable Bernadette Ma MD Unavailable [phone] Alli Stevens MD PhD Unavailable [phone] Allergies No known active allergies Medications ALPRAZolam [...] 6:10 AM CDT): [facility] of vasomotor symptoms. Samples given today in office. Plan to submit appeal to insurance to hopefully get insurance coverage [facility] since use of hormonal treatment is contraindicated [...] from 02/17/2023:Stage IA(pT1b, pN0, cM0, G3, ER+, SD+, HER2-) - Signed by Iron Currie MD on 02/17/2023 Thyroid nodule 2022 Assessment & Plan (2022 3:35 PM CDT): Thyroid Ultrasound Epistaxis 2022 Assessment & Plan (2022 3:35 PM CDT): Nasal saline spray (Simply saline, Little Remedies, [place]ro[place]ois, [place]) 2 second sprays or 2 squeezes into [...] Nasal saline spray (Simply saline, Little Remedies, [place]ois, [place]) 2 second sprays or 2 squeezes into [...] (12/23/2019): Added automatically from request for surgery [id number] Family history of colon cancer 12/23/2019 Overview (12/23/2019): Added automatically from request for surgery [id number] Anxiety 05/25/2019 Assessment & Plan (05/25/2019 9:12 [...] Department Care Team Description 06/06/[address] [facility] Gastroenterology [address] [place] [address] Lorelei Abad, RN scheduling 06/03/[address] [facility] [address] [place] [phone] Lorelei Abad, RN pt call 05/13/2024 Telephone [facility] Gastroenterology at [address] [place] [phone] Yvonne Beebe 05/03/2024 10:15 AM BUSH HOG OPERATOR Office Visit [facility] Oncology [address] [place] [address] [address] [place] [phone] Lynn Yip MD Malignant neoplasm of upper-inner quadrant of right breast in female, estrogen receptor positive (HCC) 04/08/2024 Orders Only [facility] [address] [address] Arnoldo Saldana MD 04/01/2024 10:30 AM BUSH HOG OPERATOR Lab [facility] at [address] [phone] Thyroid dysfunction 04/01/2024 10:15 AM BUSH HOG OPERATOR Office Visit [facility] Oncology [address] [place] [address] [address] [place] [phone] Lynn Yip MD Malignant neoplasm of upper-inner quadrant of right breast in female, estrogen receptor positive (HCC) 04/01/2024 9:45 AM BUSH HOG OPERATOR Lab [facility] at [address] [place] [phone] Pre-op testing; Malignant neoplasm of upper-inner quadrant of right breast in female, estrogen receptor positive (HCC) 04/01/2024 9:15 AM BUSH HOG OPERATOR Lab [facility] [address] [place] [address] [address] [place] [phone] Malignant neoplasm of upper-inner quadrant of right breast in female, estrogen receptor positive (HCC) 03/31/2024 Orders Only [facility] Health Information Management [address] [place] [address] Scanning, Provider 03/31/[address] [facility] On[facility] [address] [facility] [address] [place] [phone] Lynn Schuler RMA lab orders 03/31/[address] [facility] On[facility] [address] [facility] [address] [place] [phone] Lynn Yip MD Pre-op testing (Primary Dx); Malignant neoplasm of upper-inner quadrant of right breast in female, estrogen receptor positive (HCC) 03/17/2024 Telephone [facility] [address] [address] Arnoldo Saldana MD 03/14/2024 Telephone [facility] [address] [address] Arnoldo Saldana MD 03/10/2024 Orders Only [facility] Health Information Management [address] [place] [address] Scanning, Provider from Last 3 Months Immunizations Immunization Administration [...] Medical History Date Comments Hx Other Medical 2004 hypothyroid Disorder of thyroid Thyroid dise ase; Comments: [facility] 04/18/2014 -; Outcome: hypothyroidism Hx Other Medical menorrhagia; Co mments: [facility] 04/18/2014 - Cyst of skin Neck pain [...] on file Legal Sex Female 1:41 AM BUSH HOG OPERATOR Gender Identity Not on file Sexual Orientation [...] Comments Blood Pressure 147/84 05/03/2024 10:20 AM BUSH HOG OPERATOR Pulse 69 05/03/2024 10:20 AM BUSH HOG OPERATOR Temperature 36.8 C (98.2 F) 05/03/2024 10:20 AM BUSH HOG OPERATOR Respiratory Rate 18 05/03/2024 10:2 0 AM BUSH HOG OPERATOR Oxygen Saturation 99% 05/03/2024 10: 20 AM BUSH HOG OPERATOR Inhaled Oxygen Concentration - - Weight 107.9 kg (237 lb 12.8 oz) 2024 10:20 AM BUSH HOG OPERATOR Height 169.7 cm (5' 6.81 ) 04/01/2024 9:30 AM CS T Body Mass Index 37.46 04/01/2024 9:30 AM BUSH HOG OPERATOR Plan of Treatment Upcoming Encounters Date Type Department Care Team (Late st Contact Info) Description 02/08/2025 7:55 AM BUSH HOG OPERATOR Hospital Encounter [facility] [address] [place] [address] Pravin Macias MD [address] [place] [address] [address] [place] [address] 02/08/2025 7:55 AM BUSH HOG OPERATOR - 02/08/2025 8:25 AM BUSH HOG OPERATOR Surgery [facility] [address] [place] [address] Pravin Macias MD [address] [place] [address] [address] [place] [address] COLONOSCOPY Scheduled Procedures Name Priority Associated Diagnoses Date/Ti me COLONOSCOPY Encounter for screening colonoscopy Family history of colonic polyps 02/08/2025 7:55 AM BUSH HOG OPERATOR Health Maintenance Due Date Last Done Comments [...] Vaccine Discontinued Medical Devices Implanted Type Area Client Service Consultant Device Identifier Shelf Expiration Date Model / Serial / Lot Bard Peripheral Vascular Marker Breast Dual Trigger Pva Ultraclip [id number] - [id number] - [id number] Implanted:Qty: 1 on 11/21/2022 by Nasim Peñaloza MD at [facility] Breast Right: Breast [employer] 03/05/2025 [id number] / [id number] / Description:US guided right breast biopsy in 2:00 area; 3cmfn; cores x3 Bard Peripheral [employer] Ultraclip Bard 17ga 10cm 2 Trigger Permanent Ultrasound [id number] - [id number] - [id number] Implanted:Qty: 1 on 11/21/2022 by Nasim Peñaloza MD at [facility] Breast Right: Breast [employer] 11/03/2024 [id number] / [id number] / Description:US guided right axillary lymph node with mild cortical thickening (4 mm in thickness); cores x5 [employer] Marker Tissue Needle Delivery Spiral Capped Seed Radiopaque [facility] Stainless Steel Low Nickel [employer]imag [id number] - [id number] Implanted:Qty: 1 on 01/12/2023 at [facility] [employer] [id number] / / Procedures Procedure Name Priority Date/Time Associated Diagnosis Comments GLUCOSE Routine 05/11/2024 12:01 PM BUSH HOG OPERATOR URINE CREATININE Routine 05/11/2024 12:0 0 PM BUSH HOG OPERATOR COTININE Routine 05/11/2024 11:49 AM BUSH HOG OPERATOR CBC WITH AUTO DIFFERENTIAL Routine 05/11/2024 11:40 AM BUSH HOG OPERATOR MRSA CULTURE Routine 05/11/2024 EGFR Routine 04/01/2024 9:23 AM BUSH HOG OPERATOR Malignant neoplasm of upper-inner quadrant of right breast in female, estrogen receptor positive (HCC) DIFFERENTIAL AUTO Routine 04/01/2024 9:2 3 AM BUSH HOG OPERATOR Malignant neoplasm of upper-inner quadrant of right breast in female, estrogen receptor positive (HCC) T4, FREE Routine 04/01/2024 9:23 AM BUSH HOG OPERATOR Thyroid dysfunction TSH Routine 04/01/2024 9:23 AM BUSH HOG OPERATOR Thyroid dysfunction CBC WITH AUTO DIFFERENTIAL Routine 04/01/2024 9:23 AM BUSH HOG OPERATOR Malignant neoplasm of upper-inner quadrant of right breast in female, estrogen receptor positive (HCC) COMPREHENSIVE METABOLIC PANEL Routine 04/01/2024 9:23 AM BUSH HOG OPERATOR Malignant neoplasm of upper-inner quadrant of right breast in female, estrogen receptor positive (HCC) HEMOGLOBIN A1C Routine 04/01/2024 9:23 AM BUSH HOG OPERATOR Pre-op testing Malignant neoplasm of upper-inner quadrant of right breast in female, estrogen receptor positive (HCC) SCAN - RADIOLOGY/IMAGING 03/31/2024 SCAN - RADIOLOGY/IMAGING 03/10/2024 PAP AND HPV, REFLEX TO HPV GENOTYPES Routine 02/12/2024 12:28 PM BUSH HOG OPERATOR Well woman exam DIAGNOSTIC MAMMOGRAM BILATERAL W ALLEN Schedule Routine, Read Routine (OP Routine) 09/01/2023 3:00 PM CDT Malignant neoplasm of upper-inner quadrant of right breast in female, estrogen receptor positive (HCC) COLONOSCOPY 02/06/2020 8:09 AM BUSH HOG OPERATOR from Last 3 Months or Most Recently Relevant to Health Maintenance Results * Glucose (05/11/2024 12:01 PM BUSH HOG OPERATOR) Historical Provider MD LAB BLOOD ORDERABLES Edna l Result Performing Organization Address City/[facility] Co de Phone Number EXTERNAL LAB * Urine creatinine (05/11/2024 12:00 PM BUSH HOG OPERATOR) Historical Provider MD LAB BLOOD ORDERABLES Edna l Result Performing Organization Address City/[facility] Co de Phone Number EXTERNAL LAB * COTININE (05/11/2024 11:49 AM BUSH HOG OPERATOR) Historical Provider MD LAB BLOOD ORDERABLES Edna l Result Performing Organization Address City/[facility] Co de Phone Number EXTERNAL LAB * (ABNORMAL) CBC with auto differential (05/11/2024 11:40 AM BUSH HOG OPERATOR) SCRIBED WBC 6.4 4.5 - 10.0 k/cumm [...] 37.0 - 47.0 fl EXTERNAL LAB Blood us Historical Provider LAB BLOOD ORDERABLES Edna l Result EXTERNAL LAB * MRSA CULTURE (05/11/2024) 05/11/2024 us Historical Provider LAB BLOOD ORDERABLES Edna l Result Performing Organization Address City/[facility]/ZIP Co de Phone Number EXTERNAL LAB * eGFR (04/01/2024 9:23 AM BUSH HOG OPERATOR) eGFR 72 >=60 mL/min/1. 73 m2 Comment: [...] was last reviewed 2021. Testing performed by: [facility], [address] [facility], [place] [address] Blood 04/01/2024 9:23 AM BUSH HOG OPERATOR 04/01/2024 9:41 AM BUSH HOG OPERATOR Lynn Yip MD LAB BLOOD ORDERABLES Final Resul t Performing Organization Address City/[facility]/ZIP Co de Phone Number [facility] [address] [facility]. Department [place] [address] * Differential, auto (04/01/2024 9:23 AM BUSH HOG OPERATOR) Neutrophil abs 3.7 1.5 - 6.5 K/cumm Comment:Testing performed by : [facility], [facility], [address] [place] [address] Imm gran abs 0.0 0.0 - 0.1 K/cumm CERNER [facility] Comment:Testing performed by : [facility], [facility], [address] [place] [address] Lymphocyte abs 2.3 0.8 - 3.3 K/cumm CERNER [facility] Comment:Testing performed by : [facility], [facility], [address] [place] [address] Monocyte abs 0.6 0.2 - 0.8 K/cumm CERNER [facility] Comment:Testing performed by : [facility], [facility], [address] [place] [address] Eosinophil abs 0.2 0.0 - 0.5 K/cumm CERNER [facility] Comment:Testing performed by : [facility], [facility], [address] [place] [address] Basophil abs 0.1 0.0 - 0.1 K/cumm CERNER [facility] Comment:Testing performed by : [facility], [facility], [address] [place] [address] Neutrophil pct 54.6 % CERNER [facility] Comment: Interpretive Data Percent cell count reference ranges are not reported, since discordance with absolute values may lead to misinterpretation of CBC data. Current Interpretive Data was last revised on 2017. Testing performed by: [facility], [facility], [address] [place] [address] Imm gran pct 0.4 % CERNER [facility] Comment: Interpretive Data Percent cell count reference ranges are not reported, since discordance with absolute values may lead to misinterpretation of CBC data. Current Interpretive Data was last revised on 2017. Testing performed by: [facility], [facility], [address] [place] [address] Lymphocyte pct 33.5 % CERNER [facility] Comment: Interpretive Data Percent cell count reference ranges are not reported, since discordance with absolute values may lead to misinterpretation of CBC data. Current Interpretive Data was last revised on 2017. Testing performed by: [facility], [facility], [address] [place] [address] Monocyte pct 8.3 % LIBORIO RAMSEY Comment: Interpretive Data Percent cell count reference ranges are not reported, since discordance with absolute values may lead to misinterpretation of CBC data. Current Interpretive Data was last revised on 2017. Testing performed by: [facility], [facility], [address] [place] [address] Eosinophil pct 2.2 % LIBORIO RAMSEY Comment: Interpretive Data Percent cell count reference ranges are not reported, since discordance with absolute values may lead to misinterpretation of CBC data. Current Interpretive Data was last revised on 2017. Testing performed by: [facility] 2, [address] [place] [address] Basophil pct 1.0 % LIBORIO RAMSEY Comment: Interpretive Data Percent cell count reference ranges are not reported, since discordance with absolute values may lead to misinterpretation of CBC data. Current Interpretive Data was last revised on 2017. Testing performed by: [facility], [facility], [address] [place] [address] Blood 04/01/2024 9:23 AM BUSH HOG OPERATOR 04/01/2024 9:29 AM BUSH HOG OPERATOR us Lynn Yip MD LAB BLOOD ORDERABLES Final Resul t [facility] [address] [facility]. Department [place] [address] * CBC with auto differential (04/01/2024 9:23 AM BUSH HOG OPERATOR) WBC 6.7 3.8 - 9.9 K/cumm Comment:Testing performed by : [facility], [facility], [address] [place] [address] Hgb 14.9 11.9 - 15.5 g/dL C[facility]ER [facility] Comment:Testing performed by : [facility], [facility], [address], [place] [address] Hct 44.7 35.6 - 45.5 % C[facility]ER [facility] Comment:Testing performed by : [place] [address], [address] [place] [address] Plt 284 150 - 400 K/cumm CERNER [facility] Comment:Testing performed by : [place] [address], [address] [place] [address] MPV 10.5 9.1 - 12.3 fL [facility]ER [facility] Comment:Testing performed by : [place] [address], [address] [place] [address] RBC 5.09 3.90 - 5.20 M/cumm C[facility]ER [facility] Comment:Testing performed by : [place] [address], [address], [place] [address] MCV 88 81 - 96 fL CERNER [facility] Comment:Testing performed by : [place] [address], [address], [place] [address] MCH 29.3 27.1 - 33.3 pg CERNER [facility] Comment:Testing performed by : [place] [address], [address], [place] [address] MCHC 33.3 32.3 - 35.7 g/dL CERNER [facility] Comment:Testing performed by : [place] [address], [address], [place] [address] RDW CV 12.6 11.1 - 14.9 % CERNER [facility] Comment:Testing performed by : [facility] 2, [address], [place] [address] RDW SD 41.1 35.7 - 48.1 fL CERNER [facility] Comment:Testing performed by : [place] [address], [address], [place] [address] Blood 04/01/2024 9:23 AM BUSH HOG OPERATOR 04/01/2024 9:29 AM BUSH HOG OPERATOR Lynn Yip MD LAB BLOOD ORDERABLES Final Resul t [facility] [address] [facility]. [facility] [place] [address] * (ABNORMAL) TSH (04/01/2024 9:23 AM BUSH HOG OPERATOR) Thyroid Stimulating Hormone 11.90(H) 0.30 - 4.20 mcIUnit/mL Comment:Testing performed by : [facility], [address] [place] [address] [place] [address] Blood 04/01/2024 9:23 AM BUSH HOG OPERATOR 04/01/2024 9:41 AM BUSH HOG OPERATOR Arnoldo Saldana MD LAB BLOOD ORDERABLES Edna l Result Performing Organization Address [facility]/ZIP Co de Phone Number [facility] [address] [facility]. [facility] [employer] [place] [phone] * T4, free (04/01/2024 9:23 AM BUSH HOG OPERATOR) Pathologist [facility] [place] Free T4 1.24 0.90 - 1.70 ng/dL Comment:Testing performed by : [facility], [address] [place] [address] Blood 04/01/2024 9:23 AM BUSH HOG OPERATOR 04/01/2024 9:41 AM BUSH HOG OPERATOR Arnoldo Saldana MD LAB BLOOD ORDERABLES Edna l Result Performing Organization Address City/[facility]/ZIP Co de Phone Number [facility] [address] [facility]. [facility] [place] [address] * Hemoglobin A1c (04/01/2024 9:23 AM BUSH HOG OPERATOR) Hgb A1C 5.4 4.0 - 5.6 % Comment:Testing performed by : [facility], [address] [place] [address] Estimated Average Glucose 108 mg/dL LIBORIO RAMSEY Comment: The ADA recommends reporting an estimated Average Glucose (eAG) with all Hemoglobin A1c results using the equation derived from a study of 507 normal and diabetic adults. Minority populations were underrepresented and children were not included. (Diabetes Care 31:8115-2045, 2008). The eAG is not equivalent to a fasting glucose. Testing performed by: [facility], [address] [place] [address] Blood 04/01/2024 9:23 AM BUSH HOG OPERATOR 04/01/2024 9:41 AM BUSH HOG OPERATOR us Lynn Yip MD LAB BLOOD ORDERABLES Final Resul t [facility] [address] [address]. Department [place] [address] * Comprehensive metabolic panel (04/01/2024 9:23 AM BUSH HOG OPERATOR) Sodium 139 135 - 145 mmol/L Comment:Testing performed by : [facility], [address] [place] [address] Potassium, pl 4.3 3.3 - 4.9 mmol/L LIBORIO RAMSEY Comment:Testing performed by : [facility], [address] [place] [address] Chloride 102 97 - 110 mmol/L LIBORIO RAMSEY Comment:Testing performed by : [facility], [address] [place] [address] CO2 26 22 - 32 mmol/L LIBORIO RAMSEY Comment:Testing performed by : [facility], [address] [place] [address] Anion gap 12 2 - 15 mmol/L LIBORIO RAMSEY Comment:Testing performed by : [facility], [address] [place] [address] BUN 19 6 - 25 mg/dL CERNER [facility] Comment:Testing performed by : [facility], [address], [place] [address] Creatinine 0.94 0.60 - 1.10 mg/dL CERNER [facility] Comment:Testing performed by : [facility], [address], [place] [address] Glucose 100 70 - 199 mg/dL CERNER [...] was last revised 2022. Testing performed by: [facility], [address], [place] [address] Calcium 10.1 8.5 - 10.3 mg/dL CERNER [facility] Comment:Testing performed by : [facility], [address], [place] [address] Bilirubin, total 0.5 0.1 - 1.2 mg/dL CERNER [facility] Comment:Testing performed by : [facility], [address], [place] [address] Protein, pl 8.4 6.5 - 8.5 g/dL CERNER [facility] Comment:Testing performed by : [facility], [address], [place] [address] Albumin 4.6 3.5 - 5.0 g/dL CERNER [facility] Comment:Testing performed by : [facility], [address], [place] [address] Alk phos 94 40 - 130 Units/L CERNER [facility] Comment:Testing performed by : [facility], [address], [place] [address] ALT 16 7 - 45 Units/L C[facility]ER [facility] Comment:Testing performed by : [facility], [address], [place] [address] AST 15 10 - 45 Units/L LIBORIO RAMSEY Comment:Testing performed by : [facility], [address] [place] [address] Blood 04/01/2024 9:23 AM BUSH HOG OPERATOR 04/01/2024 9:41 AM BUSH HOG OPERATOR us Lynn Yip MD LAB BLOOD ORDERABLES Final Resul t [facility] [address] [address]. Department [place] [address] * SCAN - RADIOLOGY/IMAGING (03/31/2024) Anatomical Region Laterality Modality Other us Provider Scanning Final Result * SCAN - RADIOLOGY/IMAGING (03/10/2024) Anatomical Region Laterality Modality Other us Provider Scanning Final Result * Pap and HPV, reflex to HPV Genotypes (02/12/2024 12:28 PM BUSH HOG OPERATOR) Clinical indication Comment [facility] - 01 Comment: NEGATIVE FOR INTRAEPITHELIAL LESION OR MALIGNANCY. CELLULAR CHANGES ASSOCIATED WITH ATROPHY AND INFLAMMATION ARE PRESENT. THIS SPECIMEN WAS RESCREENED PART OF OUR SNAG GRINDER PROGRAM. Specimen adequacy: Comment [facility] - 01 Comment:Satisfactory for patti luation. Clinician provided ICD10 Comment [facility] 02 Comment:Z01.419 Performed by Comment [facility] - 01 Comment:Anand Martinez totechnologist (ASCP) QC reviewed by Comment [facility] - 01 Comment:Tom Odom, Jeanna ervisory Manager Agricultural (ASCP) . . [facility] - 01 Note: [...] not performed. Thin prep-Endocervical 02/12/2024 12:28 PM BUSH HOG OPERATOR 02/12/2024 Narrative [facility] - 02/25/2024 10:09 AM BUSH HOG OPERATOR Performed at: - [address] [id number] Business Planner: Deanne Olivo MD, Phone: [phone] Performed at: - [address] [id number] Business Planner: Caroline Dupont MD, Phone: [phone] Performed at: 03 - [address] [id number] Business Planner: Caroline Dupont MD, Phone: [phone] Specimen Comment: [id number] Specimen Comment: No. of containers..01 ThinPrep Vial Kim Otto TELEGRAPH REPEATER TECHNICIAN LAB CYTOLOGY ORDERABLES Final [facility]ult [facility] - 01 [facility] 02 LAB [...] nal Result * COLONOSCOPY (02/06/2020 8:09 AM BUSH HOG OPERATOR) Anatomical Region Laterality Modality Other Narrative Procedure Note Aquiles Tavarez MD - 02/06/2020 8:09 AM CST [facility] Patient Name: Sharita Alejandre Procedure Date: 02/06/2020 8:09 AM Date of : 1970 Admit Type: Outpatient Age: 49 Gender: Female Attending MD: Aquiles Tavarez M.D. Room: [facility] ENDOSCOPY ROOM 2 Note Status: Finalized [...] was passed under direct vision. The Colonoscope [id number] was introduced through the anusand advanced to [...] malignant neoplasm of colon CPT copyright 2017 [employer]. All rights reserved. The codes documented in this report are preliminary and upon salesperson books reviewmay be revised to meet current compliance requirements. Recognized by the [employer] for promoting quality in endoscopy Aquiles Tavarez MD ENDOSCOPY PROCEDURES Final Re sult from Last 3 Months or Most Recently Relevant to Health Maintenance Insurance [place] [employer] [facility] NEXUS GENERIC COPAY ASSIST [facility] NEXUS Member Subscriber Plan / Payer (Ef fective 2023-Present) Name:Sharita Alejandre Relation to Subscriber:Self Name:Sharita Alejandre Payer ID:[id number] (NAIC) Type:[facility] HMO/PPO Address: [address] Advance Directives For more information, please contact: [phone] * Full Code (Latest Code Status on File) Date Activated Date Inactivated Comments 02/06/2020 8:07 AM 02/06/2020 1:50 PM Care Teams Fur Scraper Relationship Specialty Start Date End Date Arnoldo Saldana MD [address] [place] [address] PCP - General 06/06/16 Lynn Yip MD [address] [facility] [address] [place] [address] Medical Oncologist/Club Room Attendant Medical Oncology 02/03/23 Juan Bateman MD [address] [place] [address] Radiation Oncologist Radiation Oncology 07/27/23 Bernadette Ma MD [address] [facility] [address] [place] [address] Surgeon Surgical Oncology 07/27/23 Alli Stevens MD PhD [address] [place] [address] Radiation Oncologist Radiation Oncology 07/27/23
--- OUTSIDE RECORDS SUMMARY | 2024-06-07 01:27 | XMS_ITS | Continuity of Care Document ---
Author Organization [facility] Address [address] [place] [address] [place] [address] Phone Care Team Providers Care Bus And Sys Integration Senior Manager Name Role Phone Brad Avitia MD Unavailable Unavailable Advance Directives Directive Yes / No Effective Date File Name No Information Encounters Encounter Description Practice Location Reason(s) For Visit Diagnoses Date Provider Providers Copied on Encounter [facility], [address] [place] [address] [address], [place], [place], [id number], [place] tel:[phone] [address] [place] Professional No Information Aug- 1200 [address]inas. [address] [facility] [address], [place], [place], [id number], [place]. tel:[phone] Family History Family Member Type Diagnosis Age At Onset No Information Payers Payer name Insurance type Covered alliance party ID Authoriza tion(s) BCBS [place] Out Of [place] [id number] Social History Type Description Quantity Date Captured [...]
--- OUTSIDE RECORDS SUMMARY | 2024-06-07 01:27 | XMS_ITS | Encounter Summary ---
Author Organization [facility] Address [address] [place] [address] Care Team Providers Care Aquatic Instructor Name Role Phone Arnoldo Saldana MD Primary Care Provider [phone] Lynn Yip MD Unavailable Juan Bateman MD Unavailable Bernadette Ma MD Unavailable Alli Stevens MD PhD Unavailable [phone] Reason for Visit * Reason Onset Date Comments Scheduling Appointments 08/22/2020 Confirim ing mammogram appt- no answer Encounter Details Date Type Department Care Team (Late Contact Info) Description 08/22/2020 [facility] [address] [place] [address] [address] Scheduling Appointments (Confiriming mammogram [...] on file Legal Sex Female 1:41 AM RESEARCH & ANALYTICS MANAGER Gender Identity Not on file Sexual Orientation Straight 08/10/2019 7: 45 PM CDT documented as of this encounter Plan of Treatment Upcoming Encounters Date Type Department Care Team (Late Contact Info) Description 02/08/2025 7:55 AM RESEARCH & ANALYTICS MANAGER Hospital Encounter [facility] [address] [place] [address] Pravin Macias MD [address] [place] [address] 02/08/2025 7:55 AM RESEARCH & ANALYTICS MANAGER - 02/08/2025 8:25 AM RESEARCH & ANALYTICS MANAGER Surgery [facility] [address] [place] [address] Pravin Macias MD [address] [facility] [place] [address] COLONOSCOPY Scheduled Procedures Name Priority Associated Diagnoses Date/Ti me COLONOSCOPY Encounter for screening colonoscopy Family history of colonic polyps 02/08/2025 7:55 AM RESEARCH & ANALYTICS MANAGER documented as of this encounter Visit Diagnoses Not on filedocumented in this encounter Care Teams Aquatic Instructor Relationship Specialty Start Date End Date Arnoldo Saldana MD [address] [place] [address] PCP - General 06/06/16 Lynn Yip MD [address] [place] [address] Medical Oncologist/Beater Lead Medical Oncology 02/03/23 Juan Bateman MD [address] [place] [address] Radiation Oncologist Radiation Oncology 07/27/23 Bernadette Ma MD [address] [place] [address] Surgeon Surgical Oncology 07/27/23 Alli Stevens MD PhD [address] [place] [address] Radiation Oncologist Radiation Oncology 07/27/23 documented as of this encounter
--- OUTSIDE RECORDS SUMMARY | 2024-06-07 01:27 | XMS_ITS | Encounter Summary ---
Author Organization [facility] Address [address] [place] [address] Care Team Providers Care Communications Lead Name Role Phone Julissa Lehman MD Primary Care Provider [phone] Encounter Details Date Type Department Care Team (Late st Contact Info) Description 07/05/2020 Lab Requisition [facility] [address] [facility] [address] [place] [address] Edmund Wang Jr., MD [address] [facility] [address] [place] [address] Social History Tobacco Use Types Packs/Day Years [...] AM CDT) Case Report Dermatopathology Report Case: [id number] Authorizing Provider: Edmund Wang Jr., MD Collected: 07/03/2020 12:00 AM Ordering Location: [facility] Received: 07/05/2020 05:38 AM Pathologist: [...] of a non-oriented ellipse of skin measuring [id number], bisected. Jar 0. 12:39 PM CDT DERMATOPATHOLOGY [...] determined by the Dermatopathology Laboratory at [facility], directed by Dr. Micha Esteban. These tests need not be, and therefore are not, approved by the [place] Food and Drug Administration. The tests are used for clinical purposes. Billing Codes Specimen Charges Stain Charges 29726 1 12:39 PM CDT DERMATOPATHOLOGY LABORATORY Embedded Images 12:39 PM CDT DERMATOPATHOLOGY LABORATORY Pathology/Cytolog y TISSUE SPECIMEN FROM SKIN / Unknown 07/03/2020 07/05/2020 5:38 AM CDT Edmund Wang Jr., MD LAB - PATHOLOGY /CYTOLOGY ORDERABLES DERMATOPATHOLOGY LABORATORY [facility] - Department of Dermatology [address], [address] [phone] documented in this encounter Visit Diagnoses Not on filedocumented in this encounter Care Teams Communications Lead Relationship Specialty Start Date End Date Julissa Lehman MD [address] [place] [address] PCP - General 07/04/20 documented as of this encounter
--- OUTSIDE RECORDS SUMMARY | 2024-06-07 01:27 | XMS_ITS | Encounter Summary ---
Author Organization [facility] Address [address] [place] [address] Phone Care Team Providers Care Crm Business Analyst Name Role Phone Arnoldo Saldana MD Primary Care Provider [phone] Lynn Yip MD Unavailable Juan Bateman MD Unavailable Bernadette Ma MD Unavailable [phone] Alli Stevens MD PhD Unavailable [phone] Reason for Visit * Reason Onset Date Comments scheduling 06/06/2024 Encounter Details Date Type Department Care Team (Late st Contact Info) Description 06/06/2024 Telephone [facility] Gastroenterology [address] [place] [address] Medical Office Building [address], [address] [place] [address] Lorelei Abad, ROSHAN scheduling Social History Tobacco Use Types Packs/Day Years [...] on file Legal Sex Female 1:41 AM ASSISTANT CREDIT MANAGER Gender Identity Not on file Sexual Orientation Straight 08/10/2019 7: 45 PM CDT documented as of this encounter Miscellaneous Notes * Telephone Encounter - Lorelei Abad RN - 06/06/2024 9:37 AM CDT Called pt regarding below. Pt declined scheduling an OV at this time. Multiple dates offered. Pt would like to see when she will be having her second knee surgery, and states she will call to schedule then. Pt has my direct number, and states she will call when she's able to schedule. ----- Message from Refugio Colmenares MD sent at 06/03/2024 4:08 PM CDT ----- Regarding: RE: pt call/BRCA letter Yes - Let's just try to get her in before the summer whenever works. It can be an add on. ----- Message ----- From: Lorelei Abad RN Sent: 06/03/2024 4:04 PM CDT To: Bella Quiñonez NP; Refugio Colmenares MD Subject: pt call/BRCA letter Hi! Pt returned a call regarding the BRCA letter she received. She had a few questions. She is having a colonoscopy in February with Dr. Pravin Macias at [facility]. She asked if she could have an EUS (if necessary) at the same time. I recommended she still come into the office to discuss further.. She is having a knee replacement in a few weeks, and then having the other one done a few months later. I did tell her it wasn't urgent. documented in this encounter Plan of Treatment Upcoming Encounters Date Type Department Care Team (Late st Contact Info) Description 02/08/2025 7:55 AM ASSISTANT CREDIT MANAGER Hospital Encounter [address] [address] Pravin Macias MD [address] [facility] [address] [place] [address] 02/08/2025 7:55 AM ASSISTANT CREDIT MANAGER - 02/08/2025 8:25 AM ASSISTANT CREDIT MANAGER Surgery [address] [address] Pravin Macias MD [address] [facility] [address] [place] [address] COLONOSCOPY Scheduled Procedures Name Priority Associated Diagnoses Date/Ti me COLONOSCOPY Encounter for screening colonoscopy Family history of colonic polyps 02/08/2025 7:55 AM ASSISTANT CREDIT MANAGER documented as of this encounter Visit Diagnoses Not on filedocumented in this encounter Care Teams Crm Business Analyst Relationship Specialty Start Date End Date Arnoldo Saldana MD [address] [place] [address] PCP - General 06/06/16 Lynn Yip MD [address] [facility] [address] [place] [address] Medical Oncologist/Passenger Barge Master Medical Oncology 02/03/23 Juan Bateman MD [address] [facility] [address] [place] [address] Radiation Oncologist Radiation Oncology 07/27/23 Bernadette Ma MD [address] [facility] [address] [place] [address] Surgeon Surgical Oncology 07/27/23 Alli Stevens MD PhD [facility] [address] [place] [address] Radiation Oncologist Radiation Oncology 07/27/23 documented as of this encounter
--- OUTSIDE RECORDS SUMMARY | 2024-06-07 01:27 | XMS_ITS | Clinical Summary ---
Author Organization [facility] Address [address] [place] [address] Care Team Providers Care Research Scholar Name Role Phone Julissa Lehman MD Primary Care Provider [phone] Source Comments [facility],non-owned Affiliates and Associated Physician Practices is amultiple site organization consisting of ambulatory clinics and hospital sitesin [place], [place], [place] and [place]. This disclosure is being madepursuant to the Care Everywhere program and may not contain all information available regarding this patient. Last updated 17.[facility] [employer] Social History Tobacco Use Types Packs/Day Years [...] to complete this topic MENINGOCOCCAL (Group B) VACC INE SHARED DECISION-MAKING Aged Out No longer eligibl e based on patient's age to complete this topic MENINGOCOCCAL GROUPS A/C/Y/W VACCINE Aged Out No longer eligible b ased on patient's age to complete this topic PNEUMOCOCCAL VACCINE Aged Out No long er eligible based on patient's age to complete this topic Care Teams Research Scholar Relationship Specialty Start Date End Date Julissa Lehman MD [address] [place] [address] PCP - General 07/04/20
--- NOTE | 2024-06-07 07:17 | WPDHPUPDATE1 ---
History and Physical Update Update Date/Time: 06/07/24 07:17 History and Physical has been reviewed, including an updated exam of the patient. There are NO changes in the patient's condition. Risks, benefits, and alternatives have been discussed and questions answered. Patient agrees to proceed with procedure.
--- NOTE | 2024-06-07 09:20 | WPDANESEPP ---
Anes - Eval Pre Procedure Procedure: Operation Date: 06/07/24 10:30 Proposed Procedures p Left Custom Total Knee Arthroplasty - Stu Farnsworth MD Date/Time: 06/07/24 09:20 Pre Op Diagnosis: primary OA left knee Patient Data Age: 53 Gender: F Height: 1.71 m Weight: 107.3 kg Last Vital Signs Temp 98.5 F 05/11/24 08:52 Pulse 72 05/11/24 08:52 Resp 18 05/11/24 08:52 BP 166/84 H 05/11/24 08:52 Pulse Ox 97 05/11/24 08:52 O2 Del Method Room Air 05/11/24 08:52 Allergies Allergy/AdvReac Type Severity Reaction Status Date / Time No Known Allergies Allergy Verified 05/11/24 12:57 Home Medications ?Medication ?Instructions ?Recorded ?Confirmed ?Type alprazolam 0.5 mg tablet 0.5 mg PO DAILY 11/24/23 05/12/24 History levothyroxine 100 mcg capsule 100 mcg PO DAILY 11/24/23 05/12/24 History sertraline 25 mg tablet 25 mg PO DAILY 11/24/23 05/12/24 History temazepam 15 mg capsule 15 mg PO QHS 11/24/23 05/12/24 History meloxicam 15 mg tablet 15 mg PO DAILY #90 tabs 12/04/23 05/12/24 Rx exemestane 25 mg tablet 25 mg PO DAILY 05/11/24 05/12/24 History krill oil 500 mg capsule 500 mg PO DAILY 05/11/24 05/12/24 History levothyroxine 137 mcg tablet 137 mcg PO DAILY 05/11/24 05/12/24 History magnesium citrate 100 mg capsule 100 mg PO DAILY 05/11/24 05/12/24 History multivitamin (Daily Multi-Vitamin 1 tablet PO DAILY 05/11/24 05/12/24 History tablet) sertraline 100 mg tablet 100 mg PO QAM 05/11/24 05/12/24 History aspirin 81 mg tablet,delayed 81 mg PO BID 14 days #28 tabs 06/07/24 Rx release oxycodone-acetaminophen 5 mg-325 1 - 2 tablet PO Q4-6H PRN pain 7 06/07/24 Rx mg tablet days #30 tabs prednisone 5 mg tablet 5 mg PO DAILY 3 weeks #21 tabs 06/07/24 Rx Patient hx anesthesia problems: post op nausea/vomiting Family hx anesthesia problems: none Results Review: All pre-operative results and documents have been reviewed as part of the pre-operative evaluation. [facility] Past Medical History Medical History Anxiety Asthma Autoimmune disease Depression GERD (gastroesophageal reflux disease) PONV (postoperative nausea and vomiting) Thyroid nodule Hx of menorrhagia History of hypothyroidism Surgical History Surgical History H/O wrist surgery Hx of tonsillectomy H/O partial thyroidectomy H/O removal of cyst S/P laparoscopic assisted vaginal hysterectomy (LAVH) Hx of hysterectomy Hx of colonoscopy Hx of breast biopsy Family History Family History Mother Thyroid disease Father Hypertension Leukemia Grandparent Colon cancer Blood clot in vein Coronary artery disease Other Diabetes mellitus Other Breast cancer Other Lung cancer Liver cancer Social History Social History Smoking status: Never smoker Additional smoking assessment comments: DENIES ANY FORM OF TOBACCO USE Alcohol intake: never Substance use: never Substance use type: does not use Do You Feel Safe in your Home?: Yes Lack of Transportation: No Lack of Food: Never True Current Housing: I Have Housing Concerned About Future Housing: No Difficulty Paying Gas/Electric Bills: No Difficulty Paying for Meds: No Currently Unemployed: No Education: High School Diploma/GED Difficulty w/ Childcare or Family Care: No Living arrangements: with family Spiritual care concerns: No Exam Day of Procedure 06/07/24 09:20 Patient weight: obese
[2024-06-07] MEDS: TRANEXAMIC ACID 1,000MG/ISO100 1,000 MG/100 ML BAG 200 MG IVPB (09:30)
[2024-06-07] MEDS: ACETAMINOPHEN 500 MG TABLET 1000 MG PO (09:30)
[2024-06-07] MEDS: LACTATED RINGERS 1,000 ML 30 ML IV CONT ×2 (09:30→12:50)
--- NOTE | 2024-06-07 09:59 | P.PNAN_ITS ---
Anes - Eval Final PreProcedure Day of Procedure 06/07/24 09:59 Patient weight: obese Heart: regular rate and rhythm Lungs: clear to auscultation Airway: Mallampati scale class II Neurological: alert and oriented Last oral intake: >/= 8 hours ASA classification: III Emergent: no Anesthetic plan: proceed Anesthesia type and monitoring: general LMA and standard monitoring Results Review: All pre-operative results and documents have been reviewed as part of the pre- operative evaluation. Informed Consent: The patient's anesthetic plan and its attendant risks and benefits were discussed with the patient/family/POA. Questions were solicited and answers provided to the satisfaction of the patient/family/POA.
[2024-06-07] MEDS: SCOPOLAMINE 1 MG PATCH 1 PATCH TRANSDERM (10:00)
[2024-06-07] MEDS: ceFAZolin 2 GM/D5W 50 ML 2 GM/50 ML BAG IVPB (10:11)
[2024-06-07] MEDS: SODIUM CHLORIDE 0.9% IV 37.7 ML, MORPHINE SULFATE INJ (*CRX) 2 MG, ROPivacaine HCL 1% 2... INFILTRATE (11:06)
--- NOTE | 2024-06-07 11:11 | SUR.OPER ---
Type and Screen Confirmation given to Dayana in Lab
--- NOTE | 2024-06-07 12:12 | P.OP_ITS ---
Procedure Note - Detailed Date of Procedure 06/07/24 Pre-op Diagnosis Left knee degenerative arthritis. Post-op Diagnosis Same Procedure Performed Custom total knee arthroplasty, left. Surgeon Stu Farnsworth MD Seat Cover Maker Iram Amanda PA-C Anesthesia General Findings Severe disease with moderate synovitis. Mild flexion contracture Dusky purple colored synovium and large osteophytes diffusely. Preoperative planning revealed significant [place] slope which was brought to about 10?. No releases were required. Description of Procedure Preoperative antibiotics were given. The limb was prepped and draped in the usual sterile fashion with a well-padded tourniquet high on the thigh. The limb was exsanguinated and the tourniquet inflated to 300 mmHg. A longitudinal incision was created just medial to the patella. A trivector approach to the knee was performed. Arthrotomy was taken down through the joint capsule. No significant releases were initially taken. The femur was exposed and the F1 jig was applied. The coring tool was used to remove the cartilage for the F2 jig to sit flush with the bone. The jig was pinned and the distal cut carefully taken. Caliper measurements confirmed appropriate bony resections according to the preoperative templated plan. The F4 cutting jig for the femur was applied, at the standard rotation. The AP and anterior chamfer cuts were taken. The F5 jig was applied and the posterior chamfer cuts were taken. The tibia was prepared using the T1 jig, after removing cartilage for the jig contact points. Proper alignment was checked with the alignment titi. The tibia was cut using the T1u guide. Gap balancing was performed. Gap measurements were taken and the knee was trialed. Excellent alignment and soft tissue balancing was confirmed. The posterior cruciate ligament was recessed along the proximal tibia. The patella was cut for resurfacing. Three lug holes were drilled. Meniscal remnants were removed. The trial components were assembled. Excellent range of motion and proper soft tissue balancing were confirmed throughout the full range of motion. Patellar tracking was excellent. The knee was copiously irrigated periodically throughout the procedure. The real implants were cemented into position. Excess cement was carefully removed. The wound was closed in layers with interrupted #1 Vicryl suture, 2-0 strata fix suture, 0 strata fix suture, 2-0 strata fix suture. Steri-Strips placed on the skin with the knee flexed. Sterile bulky dressing applied. The patient was brought to the recovery room in stable condition. There were no complications. Physician staff physical therapy assistant, Iram Amanda PA-C, required for surgery; including patient positioning, draping, tissue retraction, maintaining instrument position, cement removal, wound closure, and dressing placement. Implants Conformis Custom total knee arthroplasty. Cemented. Cruciate retaining. 6B insert. 35 mm oval patella. Estimated Blood Loss 50 Tourniquet Time Total Tourniquet Time: 65 Drains No Complications No immediate complications Condition Stable Disposition PACU [facility] Billing Surgery - Charge Forward: Surgery Billing
[2024-06-07] MEDS: oxyCODONE HCL (*CRX) 5 MG TAB IR PO (14:28)
--- NOTE | 2024-06-07 14:42 | SUR.PHASEII ---
1442 - Dr. Farnsworth in room talking with pt and pt's family
== END 2024-06-07 16:50 | disposition home or self-care (01) ==
PROVIDERS: PCP Family Medicine; Visit Provider Orthopaedic Surgery
PROC: (CPT 27447; principal; 2024-06-07 10:30)
DX: M17.12 Unilateral primary osteoarthritis, left knee (principal); M25.762 Osteophyte, left knee; M65.862 Other synovitis and tenosynovitis, left lower leg; E03.9 Hypothyroidism, unspecified; K21.9 Gastro-esophageal reflux disease without esophagitis; J45.909 Unspecified asthma, uncomplicated; F41.9 Anxiety disorder, unspecified; F32.A Depression, unspecified; M35.9 Systemic involvement of connective tissue, unspecified; E66.9 Obesity, unspecified; Z68.36 Body mass index [BMI] 36.0-36.9, adult; Z79.891 Long term (current) use of opiate analgesic; Z79.82 Long term (current) use of aspirin; Z79.52 Long term (current) use of systemic steroids; Z98.890 Other specified postprocedural states; Z80.6 Family history of leukemia; Z80.3 Family history of malignant neoplasm of breast; Z80.0 Family history of malignant neoplasm of digestive organs; Z80.1 Family history of malignant neoplasm of trachea, bronchus and lung; Z82.49 Family history of ischemic heart disease and other diseases of the circulatory system
CPT/HCPCS: 27447; 36415; 73560; 86850; 86880; 86900; 86901; 86902; 97110; 97161; 97165; A9270; C1713; C1776; J0171; J0690; J1100; J1171; J1885; J2003; J2250; J2270; J2405; J2704; J2795; J3010; J7120

== ENCOUNTER 2024-08-04 09:33 | Outpatient (CLI) | payer OTHER, SELFPAY ==
--- NOTE | ~2024-08-04 | CT_ITS ---
EXAMINATION: CT LE RT wo con DATE: 08/04/2024 09:56 INDICATION: Primary osteoarthritis of the right knee for preoperative planning. TECHNIQUE: High resolution computed tomography (CT) of the right lower extremity from the hip through the ankle was performed without intravenous contrast. Additional sagittal and coronal reconstruction s were performed. Automated exposure control and iterative reconstruction technique were employed. Th e dose-length product was 1600.24 mGy-cm. COMPARISON: Right knee MRI dated 03/10/2024 FINDINGS: Alignment is normal from the hip through the ankle. No fracture or evident osteonecrosis. Mild osteoa rthritis at the right hip with marginal osteophytes and mild subarticular cystlike changes along the rim of the acetabulum. Moderate joint space narrowing in the medial compartment of the right knee whi ch could be underestimated on nonweightbearing imaging. There is subtle cortical irregularity along t he central weightbearing medial femoral condyle suggesting overlying high-grade chondromalacia. Mild osteoarthritis in the lateral and patellofemoral compartments. Very small right knee joint effusion a t the suprapatellar pouch. Mild osteoarthritis at the right ankle joint without ankle joint effusion. There is mild hypertrophic change at the distal fibular insertion of the anterior distal tibiofibula r ligament which could be enthesopathic or sequela of chronic sprain. IMPRESSION: 1. At least moderate severity medial compartment predominant tricompartmental osteoarthritis at the r ight knee. Severity of joint space measuring can however be underestimated on nonweightbearing imagin g. Reviewed, dictated and finalized at location A. IMPRESSION: 1. At least moderate severity medial compartment predominant tricompartmental o steoarthritis at the right knee. Severity of joint space measuring can however be underestimated on nonweightbearing imaging.
--- OUTSIDE RECORDS SUMMARY | 2024-08-04 09:41 | XMS_ITS | Continuity of Care Document ---
Author Organization [facility] Address [address] [place] [address] [place] [address] Phone Care Team Providers Care Supervisor Felting Name Role Phone Brad Avitia MD Unavailable Unavailable Advance Directives Directive Yes / No Effective Date File Name No Information Encounters Encounter Description Practice Location Reason(s) For Visit Diagnoses Date Provider Providers Copied on Encounter [facility], [address] [place] [address] [address], [place], [place], [id number], [place] tel:[phone] [address] [place] Professional No Information Aug- 1200 [address]inas. [address] [facility] [address] [place], [place], [id number], [place]. tel:[phone] Family History Family Member Type Diagnosis Age At Onset No Information Payers Payer name Insurance type Covered democrat ID Authoriza tion(s) BCBS [place] Out Of [place] [id number] Social History Type Description Quantity Date Captured [...]
--- OUTSIDE RECORDS SUMMARY | 2024-08-04 09:42 | XMS_ITS | Clinical Summary ---
Author Organization [facility] Address [address] [place] [address] Care Team Providers Care Metalizing Machine Operator Automatic Name Role Phone Julissa Lehman MD Primary Care Provider [phone] Source Comments [facility],non-owned Affiliates and Associated Physician Practices is amultiple site organization consisting of ambulatory clinics and hospital sitesin [place], [place], [place] and [place]. This disclosure is being madepursuant to the Care Everywhere program and may not contain all information available regarding this patient. Last updated 17.[facility] [employer] Social History Tobacco Use Types Packs/Day Years Used Date Smoking Tobacco: Never Assessed Comments Unknown Sex and Gender Information Value Date Recorded Sex Assigned at Not on file Legal Sex Female 1:34 PM CDT Gender Identity Not on file Sexual Orientation [...] SCREENING 1969 LIPID TESTING 1969 MAMMOGRAM 1969 HIV SCREENING 1984 HEPATITIS C SCREENING 12/11/1987 DTAP/TDAP/TD VACCINES (1 - Tdap) 1988 HEPATITIS B VACCINE (1 of 3 - 19+ 3-dose series) 1988 PNEUMOCOCCAL VACCINE 50+ (1 of 1 - PCV) 12/16/2019 ZOSTER VACCINE (1 of 2) 12/16/2019 COVID-19 VACCINE (1 - 2023-2 5 season) 2023 DEPRESSION SCREENING 03/09/2024 INFLUENZA VACCINE (Season Ended) 2024 HIB VACCINE Aged Out No longer eligi [...] on patient's age to complete this topic Insurance ANTH Care Teams Metalizing Machine Operator Automatic Relationship Specialty Start Date End Date Julissa Lehman MD [address] [place] [address] PCP - General 07/04/20
--- OUTSIDE RECORDS SUMMARY | 2024-08-04 09:42 | XMS_ITS | Encounter Summary ---
Author Organization [facility] Address [address] [facility] [place] [address] Care Team Providers Care Food Specialist Name Role Phone Julissa Lehman MD Primary Care Provider Encounter Details Date Type Department Care Team (Late st Contact Info) Description 07/05/2020 Lab Requisition [facility] [address] [facility], [place] [address] Edmund Wang Jr., MD [address] [facility] [address] [place] [address] Social History Tobacco Use Types Packs/Day Years [...] AM CDT) Case Report Dermatopathology Report Case: [id number] Authorizing Provider: Edmund Wang Jr., MD Collected: 07/03/2020 12:00 AM Ordering Location: [facility] Received: 07/05/2020 05:38 AM Pathologist: Julissa Costa MD Specimen: Skin, left superior upper back 12:39 PM CDT DERMATOPATHOLOGY LABORATORY Final Diagnosis Specimen A. SKIN, left superior upper back: EPIDERMOID CYST WITH EVIDENCE OF RUPTURE (L72.0) 12:39 PM CDT DERMATOPATHOLOGY LABORATORY at 1239 CDT Clinical History Neoplasm of uncertain behavior of skin vs ruptured epidermoid cyst. . 12:39 PM CDT DERMATOPATHOLOGY LABORATORY Gross Description Specimen A: Received is one formalin filled container labeled with the patient's name and designated left superior upper back. The specimen consists of a non-oriented ellipse of skin measuring [id number], bisected. Jar 0. 12:39 PM CDT DERMATOPATHOLOGY [...] characteristic determined by the Dermatopathology Laboratory at [facility], directed by Dr. Micha Esteban. These tests need not be, and therefore are not, approved by the [place] Food and Drug Administration. The tests are used for clinical purposes. Billing Codes Specimen Charges Stain Charges 49219 1 12:39 PM CDT DERMATOPATHOLOGY LABORATORY Embedded Images 12:39 PM CDT DERMATOPATHOLOGY LABORATORY Pathology/Cytolog y TISSUE SPECIMEN FROM SKIN / Unknown 07/03/2020 07/05/2020 5:38 AM CDT us Edmund Wang Jr., MD LAB - PATHOLOGY/CYTOLOG Y ORDERABLES Final Result DERMATOPATHOLOGY LABORATORY [facility] - Department of Dermatology [address], [address] [phone] documented in this encounter Visit Diagnoses Not on filedocumented in this encounter Care Teams Food Specialist Relationship Specialty Start Date End Date Julissa Lehman MD [address] [place] [id number] PCP - General 07/04/20 documented as of this encounter
== END 2024-08-04 09:34 | disposition home or self-care (01) ==
PROVIDERS: PCP Family Medicine; Visit Provider Orthopaedic Surgery
DX: M17.11 Unilateral primary osteoarthritis, right knee (principal)
CPT/HCPCS: 73700

== ENCOUNTER 2024-10-26 13:51 | Outpatient (CLI) | payer OTHER, SELFPAY ==
--- OUTSIDE RECORDS SUMMARY | 2024-10-25 08:10 | XMS_ITS | Encounter Summary ---
Author Organization [facility] Healthcare Address [address] [place] [address] Care Team Providers Care Communications Clerk Name Role Phone Arnoldo Saldana MD Primary Care Provider [phone] Lynn Yip MD Unavailable Juan Bateman MD Unavailable Bernadette Ma MD Unavailable [phone] Alli Stevens MD PhD Unavailable [phone] Reason for Referral * MRI/CAT/PET Scan (Routine) - Closed Specialty Diagnoses / Procedures [facility] Referred To Contact Radiology Diagnoses NOEL gene mutation positive Procedures MRI Abdomen MRCP W WO Contrast Incl 3D Bella Quiñonez NP [address] [facility] [address] [place] [address] Phone: tel: fax: [address] [phone] Referral ID Status Reason Start Date Expiration Date Visits Re quested Visits Authorized [id number] Closed 10/13/2024 11/12/2025 1 1 Reason for Visit * MRI/CAT/PET Scan (Routine) - Closed Specialty Diagnoses / Procedures [facility] Referred To Contact Radiology Diagnoses NOEL gene mutation positive Procedures MRI Abdomen MRCP W WO Contrast Incl 3D Bella Quiñonez NP [address] [place] [address] Phone: tel: fax: [address] [phone] Referral ID Status Reason Start Date Expiration Date Visits Re quested Visits Authorized [id number] Closed 10/13/2024 11/12/2025 1 1 Encounter Details Date Type Department Care Team (Latest Contact Info) Description 10/25/2024 8:10 AM CDT - 10/25/2024 11:59 PM CDT Hospital Encounter [address] [address] NOEL gene mutation positive Discharge Disposition: Discharge to home or self care Social History Tobacco Use Types Packs/Day Years Used Date Smoking Tobacco: Never Smokeless Tobacco: Never Alcohol Use Standard Drinks/Week Comments Yes 0 (1 standard drink = 0.6 oz pur e alcohol) Rare AUDIT-C Answer Date Recorded Q1: How often do you have a drink containing alc ohol? Never 10/13/2024 Average Number of Drinks Not on file 025 Frequency of Binge Drinking Not on file 0809/2024 PHQ-2 Answer Date Recorded PHQ-2 Total Score [...] on file Legal Sex Female 1:41 AM ADVANCED ANALYTICS ASSOCIATE Gender Identity Not on file Sexual Orientation Straight 08/10/2019 7: 45 PM CDT documented as of this encounter Medications at Time of Discharge clonazePAM (KlonoPIN) 0.5 mg tablet Take 1 tablet (0.5 mg total) by mouth 2 (two) times a day as needed for anxiety 30 tablet 08/11/2024 exemestane (AROMASIN) 25 mg tablet Take 1 tablet (25 mg total) by mouth daily Take after a meal. 90 tablet 3 05/13/2024 05/08/2025 levothyroxine (SYNTHROID) 137 mcg tablet Take 1 tablet (137 mcg total) by mouth daily 90 tablet 4 04/08/2024 magnesium gluconate 200 mg tabletIndication s:hypomagnesemia 1 tablet (200 mg total) meloxicam (MOBIC) 15 mg tablet Take 1 tablet (15 mg total) by mouth daily 30 tablet 11 12/02/2023 12/01/2024 multivitamin tabletIndication s:Vitamin Deficiency Prevention Take 1 tablet by mouth omega-3 fatty acids-fish oil 300-1,000 mg capsule Take 2 capsules (2 g total) by mouth daily sertraline (ZOLOFT) 100 mg tablet Take 1 tablet (100 mg total) by mouth daily 90 tablet 4 01/06/2024 01/05/2025 documented as of this encounter Discharge Disposition Disposition Code Departure Means Destination Discharge to home or self care documented in this encounter Plan of Treatment Upcoming Encounters Date Type Department Care Team (Late st Contact Info) Description 02/08/2025 7:55 AM ADVANCED ANALYTICS ASSOCIATE Hospital Encounter [address] [address] Pravin Macias MD [address] [facility] [address] [place] [address] 02/08/2025 7:55 AM ADVANCED ANALYTICS ASSOCIATE - 02/08/2025 8:25 AM ADVANCED ANALYTICS ASSOCIATE Surgery [address] [address] Pravin Macias MD [address] [facility] [address] [place] [address] COLONOSCOPY Pending Results Name Type Priority Associated Diagnoses Date /Time MRI Abdomen MRCP W WO Contrast Incl 3D Imaging Schedule Routine, Read Routine (OP Routine) NOEL gene mutation positive 10/25/2024 9:42 AM CDT Scheduled Orders Name Type Priority Associated Diagnoses Orde r Schedule MRI Abdomen MRCP W WO Contrast Incl 3D Imaging Schedule Routine, Read Routine (OP Routine) NOEL gene mutation positive Once for 1 Occurrences starting 10/25/2024 until 10/25/2024 Scheduled Procedures Name Priority Associated Diagnoses Date/Ti me COLONOSCOPY Encounter for screening colonoscopy Family history of colonic polyps 02/08/2025 7:55 AM ADVANCED ANALYTICS ASSOCIATE documented as of this encounter Visit Diagnoses Diagnosis Family history of colonic polyps- Primary Encounter for screening colonoscopy NEOL gene mutation positive Encounter for screening colonoscopy Family history of colonic polyps documented in this encounter Administered Medications Inactive Administered Medications - up to 3 most recent administrations Medication Order MAR Action Action Date Dose Rate Site gadoterate meglumine injection 20 mL 20 mL, intravenous, Once in imaging, contrast, Starting on 10/25/24 at 0909, For 1 dose Contrast Given 10/25/2024 9:29 AM CDT 20 mL documented in this encounter Orders Medications Ordered That Tremayne ht Not Have Been Administered Count Last Ordered Date First Ordered Date gadoterate meglumine injection 20 mL 1 10/07 documented in this encounter Care Teams Communications Clerk Relationship Specialty Start Date End Date Arnoldo Saldana MD [address] [place] [address] PCP - General 06/06/16 Lynn Yip MD [address] [facility] [facility] [address] [place] [address] Medical Oncologist/Securities Supervisor Medical Oncology 02/03/23 Juan Bateman MD [address] [facility] [facility] [address] [place] [address] Radiation Oncologist Radiation Oncology 07/27/23 Bernadette Ma MD [address] [facility] [address] [place] [address] Surgeon Surgical Oncology 07/27/23 Alli Stevens MD PhD [address] [facility] [address] [place] [address] Radiation Oncologist Radiation Oncology 07/27/23 documented as of this encounter
--- NOTE | ~2024-10-26 | XR_ITS ---
XR knee RT min 4V 10/26/2024 14:21 Indication: Primary osteoarthritis Procedure: 4 views right knee Comparison: No prior studies for comparison. Findings: There is moderate tricompartment osteoarthritis. No acute fracture, subluxation or dislocation. No significant joint effusion. No foreign bodies. Impression: 1: Moderate tricompartment osteoarthritis, most advanced in the medial joint space. Reviewed, dictated and finalized at location A. Impression: 1: Moderate tricompartment osteoarthritis, most advanced in the medial joint sp juan david.
--- OUTSIDE RECORDS SUMMARY | 2024-10-26 14:20 | XMS_ITS ---
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 Family history of colonic polyps 05/13/2024 Encounter [...] Generalized anxiety disorder 03/25/2023 Chemotherapy-induced neutropenia 03/18/2023 NOEL gene mutation positive 03/13/2023 Malignant neoplasm of right female breast 2022 Malignant neoplasm of upper- inner quadrant of right breast in female, estrogen receptor positive 12/30/2022 Cancer Staging:Pathologic stage from 02/17/2023:Stage IA(pT1b, pN0, cM0, G3, ER+, WI+, HER2-) - Signed by Iron Currie MD on 02/17/2023 Thyroid nodule 2022 Assessment & Plan (2022 3:35 PM CDT): Thyroid Ultrasound Epistaxis 2022 Assessment & Plan (2022 3:35 PM CDT): Nasal saline spray (Simply saline, Little Remedies, Forsan, Bristol) 2 second sprays or 2 squeezes into [...] Nasal saline spray (Simply saline, Little Remedies, Forsan, [place]) 2 second sprays or 2 squeezes into [...] Maxillary Antrostomy with tissue removal Endoscopic Left Emelnia bullosa removal Stealth Image guidance utilized Assessment [...] (12/23/2019): Added automatically from request for surgery [id number] Family history of colon cancer 12/23/2019 Overview (12/23/2019): Added automatically from request for surgery [id number] Anxiety 05/25/2019 Assessment & Plan (05/25/2019 9:12 [...] discussed. Reg checks with PCP q1-2 years. Assessment & Plan (09/20/2024 10:24 AM CDT): We will set the patient for excision of the lesion. We have discussed doing this with local anesthetic in the office as well as with some light sedation in the OR. She is comfortable doing this just in the office. We have discussed postoperative restrictions. All questions answered. Knee pain 01/14/2016 Shoulder pain 10/31/2015 Overview [...]
--- OUTSIDE RECORDS SUMMARY | 2024-10-26 14:21 | XMS_ITS | Encounter Summary ---
Author Organization [facility] Address [address] [place] [address] Phone Care Team Providers Care Human Resources Operations Director Name Role Phone Arnoldo Saldana MD Primary Care Provider [phone] Lynn Yip MD Unavailable Juan Bateman MD Unavailable Bernadette Ma MD Unavailable Alli Stevens MD PhD Unavailable [phone] Encounter Details Date Type Department Care Team (Late st Contact Info) Description 09/07/2024 Results Follow-Up [facility] Medicine Surgery [address] [facility] [address] [place] [address] Bernadette Ma MD [address] [place] [id number] Screening Mammogram Bilateral [address] [place] Social History Tobacco Use Types Packs/Day Years [...] on file Legal Sex Female 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 AM SUPERVISOR AIR CONDITIONING INSTALLER Gender Identity Not on file Sexual Orientation Straight 08/10/2019 7: 45 PM CDT documented as of this encounter Plan of Treatment Upcoming Encounters Date Type Department Care Team (Late st Contact Info) Description 02/08/2025 7:55 AM SUPERVISOR AIR CONDITIONING INSTALLER Hospital Encounter [address] [address] Pravin Macias MD [address] [place] [address] [address] [place] [address] 02/08/2025 7:55 AM SUPERVISOR AIR CONDITIONING INSTALLER - 02/08/2025 8:25 AM SUPERVISOR AIR CONDITIONING INSTALLER Surgery [address] [address] Pravin Macias MD [address] [place] [address] [address] [place] [address] COLONOSCOPY Scheduled Procedures Name Priority Associated Diagnoses Date/Ti ma COLONOSCOPY Encounter for screening colonoscopy Family history of colonic polyps 02/08/2025 7:55 AM SUPERVISOR AIR CONDITIONING INSTALLER documented as of this encounter Visit Diagnoses Not on filedocumented in this encounter Care Teams Human Resources Operations Director Relationship Specialty Start Date End Date Arnoldo Saldana MD [address] [place] [id number] PCP - General 06/06/16 Lynn Yip MD [address] [facility] [address] [place] [address] Medical Oncologist/Road Design Draftsperson Medical Oncology 02/03/23 Juan Bateman MD [address] [facility] [address] [place] [address] Radiation Oncologist Radiation Oncology 07/27/23 Bernadette Ma MD [address] [facility] [address] [place] [address] Surgeon Surgical Oncology 07/27/23 Alli Stevens MD PhD [address] [place] [address] Radiation Oncologist Radiation Oncology 07/27/23 documented as of this encounter
--- OUTSIDE RECORDS SUMMARY | 2024-10-26 14:21 | XMS_ITS | Encounter Summary ---
Author Organization [facility] Address [address] [place] [address] Care Team Providers Care Sweet Potato Disintegrator Name Role Phone Julissa Lehman MD Primary Care Provider [phone] Encounter Details Date Type Department Care Team (Late st Contact Info) Description 07/05/2020 Lab Requisition [facility] [address] [facility] [place] [address] Edmund Wang Jr., MD [address] [facility] [address] [place] [address] Social History Tobacco Use Types Packs/Day Years [...] AM CDT) Case Report Dermatopathology Report Case: [id number] Authorizing Provider: Edmund Wang Jr., MD Collected: 07/03/2020 12:00 AM Ordering Location: [facility] Received: 07/05/2020 05:38 AM Pathologist: [...] of a non-oriented ellipse of skin measuring [id number], bisected. Jar 0. 12:39 PM CDT DERMATOPATHOLOGY [...] characteristic determined by the Dermatopathology Laboratory at [facility], directed by Dr. Micha Esteban. These tests need not be, and therefore are not, approved by the [place] Food and Drug Administration. The tests are used for clinical purposes. Billing Codes Specimen Charges Stain Charges 58084 1 12:39 PM CDT DERMATOPATHOLOGY LABORATORY Embedded Images 12:39 PM CDT DERMATOPATHOLOGY LABORATORY Pathology/Cytolog y TISSUE SPECIMEN FROM SKIN / Unknown 07/03/2020 07/05/2020 5:38 AM CDT us Edmund Wang Jr., MD LAB - PATHOLOGY/CYTOLOG Y ORDERABLES Final Result DERMATOPATHOLOGY LABORATORY [facility] - Department of Dermatology [address] [phone] documented in this encounter Visit Diagnoses Not on filedocumented in this encounter Care Teams Sweet Potato Disintegrator Relationship Specialty Start Date End Date Julissa Lehman MD [address] [place] [phone] PCP - General 07/04/20 documented as of this encounter
--- OUTSIDE RECORDS SUMMARY | 2024-10-26 14:21 | XMS_ITS | Encounter Summary ---
Author Organization [facility] Healthcare Address [address] [place] [address] Care Team Providers Care Mower Mechanic Name Role Phone Arnoldo Saldana MD Primary Care Provider [phone] Lynn Yip MD Unavailable Juan Bateman MD Unavailable Bernadette Ma MD Unavailable [phone] Alli Stevens MD PhD Unavailable [phone] Reason for Visit * Reason Onset Date Comments Scheduling Appointments 08/22/2020 Confirim ing mammogram appt- no answer Encounter Details Date Type Department Care Team (Late st Contact Info) Description 08/22/2020 Telephone [facility] [address] [place] [address] [address] Scheduling Appointments (Confiriming mammogram [...] on file Legal Sex Female 1:41 AM MOBILE HOME SERVICER Gender Identity Not on file Sexual Orientation Straight 08/10/2019 7: 45 PM CDT documented as of this encounter Plan of Treatment Upcoming Encounters Date Type Department Care Team (Late st Contact Info) Description 02/08/2025 7:55 AM MOBILE HOME SERVICER Hospital Encounter [facility] [address] [place] [address] Pravin Macias MD [address] [facility] [address] [place] [address] 02/08/2025 7:55 AM MOBILE HOME SERVICER - 02/08/2025 8:25 AM MOBILE HOME SERVICER Surgery [address] [address] Pravin Macias MD [address] [facility] [address] [place] [address] COLONOSCOPY Scheduled Procedures Name Priority Associated Diagnoses Date/Ti me COLONOSCOPY Encounter for screening colonoscopy Family history of colonic polyps 02/08/2025 7:55 AM MOBILE HOME SERVICER documented as of this encounter Visit Diagnoses Not on filedocumented in this encounter Care Teams Mower Mechanic Relationship Specialty Start Date End Date Arnoldo Saldana MD [address] [place] [address] PCP - General 06/06/16 Lynn Yip MD [address] [place] [address] Medical Oncologist/Geophysical Support Specialist Medical Oncology 02/03/23 Juan Bateman MD [address] [place] [address] Radiation Oncologist Radiation Oncology 07/27/23 Bernadette Ma MD [address] [place] [address] Surgeon Surgical Oncology 07/27/23 Alli Stevens MD PhD [address] [place] [address] Radiation Oncologist Radiation Oncology 07/27/23 documented as of this encounter
--- OUTSIDE RECORDS SUMMARY | 2024-10-26 14:21 | XMS_ITS | Clinical Summary ---
Author Organization [facility] Address [address] [place] [address] Care Team Providers Care Customer Project Manager Name Role Phone Arnoldo Saldana MD Primary Care Provider [phone] Lynn Yip MD Unavailable Juan Bateman MD Unavailable Bernadette Ma MD Unavailable [phone] Alli Stevens MD PhD Unavailable Allergies No known active allergies Medications meloxicam (MOBIC) 15 mg tablet Take 1 tablet (15 mg total) by mouth daily 30 tablet 11 4 12/02/19 25 Active magnesium gluconate 200 mg tabletIndicatio ns:hypomagnesem ia 1 tablet (200 mg total) Active multivitamin tabletIndicatio ns:Vitamin Deficiency Prevention Take 1 tablet by mouth Active omega-3 fatty acids-fish oil 300-1,000 mg capsule Take 2 capsules (2 g total) by mouth daily Active sertraline (ZOLOFT) 100 mg tablet Take 1 tablet (100 mg total) by mouth daily 90 tablet 4 4 01/06/20 25 Active temazepam (RESTORIL) 15 mg capsuleIndicati ons:Insomnia Take 1 capsule (15 mg total) by mouth nightly as needed for sleep 30 capsule 4 Active levothyroxine (SYNTHROID) 137 mcg tablet Take 1 tablet (137 mcg total) by mouth daily 90 tablet 4 5 Active exemestane (AROMASIN) 25 mg tablet Take 1 tablet (25 mg total) by mouth daily Take after a meal. 90 tablet 3 5 05/09/19 26 Active clonazePAM (KlonoPIN) 0.5 mg tablet Take 1 tablet (0.5 mg total) by mouth 2 (two) times a day as needed for anxiety 30 tablet 5 Active LORazepam (Ativan) 1 mg tablet Take 1 tablet (1 mg total) by mouth 1 time if needed for anxiety for up to 1 dose Please take 1 tablet after signing in at Radiology, before you are taken back for your MRI scan. 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 Samples given today in office. Plan to submit appeal to insurance to hopefully get insurance coverage for the [employer] since use of hormonal treatment is contraindicated [...] Nasal saline spray (Simply saline, Little Remedies, [place], Gypsum) 2 second sprays or 2 squeezes into [...] Nasal saline spray (Simply saline, Little Remedies, [place], Gypsum) 2 second sprays or 2 squeezes into [...] (12/23/2019): Added automatically from request for surgery [id number] Family history of colon cancer 12/23/2019 Overview (12/23/2019): Added automatically from request for surgery [id number] Anxiety 05/25/2019 Assessment & Plan (05/25/2019 9:12 [...] Encounters Date Type Department Care Team Description 10/25/2024 8:10 AM CDT - 10/25/2024 11:59 PM CDT Hospital Encounter [facility] [address] [place] [address] NOEL gene mutation positive Discharge Disposition: Discharge to home or self care 10/13/2024 9:30 AM CDT Office Visit [facility] Medicine Gastroenterology [address] [facility] Medical Office Building [address], [address] [place] [address] Refugio Colmenares MD NOEL gene mutation positive (Primary Dx); 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 10/06/2024 10:30 AM CDT Office Visit [address] [place] [address] Shanda De La Torre NP Dermatofibroma (Primary Dx) 09/29/2024 11:30 AM CDT Procedure visit [address] [place] [address] Nasim Mukherjee MD Benign neoplasm of skin of right lower extremity (Primary Dx) 09/29/2024 10:35 AM CDT - 09/29/2024 11:59 PM CDT Hospital Encounter [facility] [address] [place] [address] Skin abnormalities Discharge Disposition: Discharge to home or self care 09/29/2024 Orders Only [address] [place] [address] Nasim Mukherjee MD Skin abnormalities (Primary Dx) 09/20/2024 10:10 AM CDT Office Visit [address] [place] [address] Nasim Mukherjee MD Benign neoplasm of skin of right lower extremity (Primary Dx); Neoplasm of uncertain behavior 09/07/2024 Results Follow-Up [facility] Medicine Surgery [address] [facility] 8 [place] [id number] Bernadette Ma MD Screening Mammogram Bilateral W Allen 09/06/2024 2:35 PM CDT - 09/06/2024 11:59 PM CDT Hospital Encounter [facility] [place] - Breast Imaging [address] [facility] Floor [address] [place] [address] History of breast cancer; Malignant neoplasm of upper-inner quadrant of right breast in female, estrogen receptor positive (HCC) Discharge Disposition: Discharge to home or self care 09/06/2024 2:30 PM CDT Office Visit [facility] Medicine Surgery [address] [facility] [address] [place] [address] Bernadette Ma MD 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 (Primary Dx); History of breast cancer 09/05/2024 Telephone [facility] Surgery [address] [facility] [address] [place] [address] Corina Cornejo CMA 08/09/2024 11:15 AM CDT Lab [facility] [address] [place] [phone] Lipid screening; Hypothyroidism, unspecified type 08/09/2024 10:15 AM CDT Office Visit [facility] Oncology [address] [facility] [address] [place] [phone] Lynn Yip MD Malignant neoplasm of upper-inner quadrant of right breast in female, estrogen receptor positive (HCC) 08/09/2024 9:15 AM CDT Lab [facility] at [address] [phone] Malignant neoplasm of upper-inner quadrant of right breast in female, estrogen receptor positive (HCC) 08/04/2024 Orders Only [facility] [place] Information Management [address] [place] [address] Scanning, Provider 08/03/2024 3:30 PM CDT Therapy [facility] [place] [address] Dee Butt, EDU Aftercare following left knee joint replacement surgery (Primary Dx) 07/29/2024 Orders Only [facility] [address] [address] [address] Arnoldo Saldana MD 07/28/2024 3:30 PM CDT Therapy [facility] - [place] [address] [place] [address] Dee Butt, PT Aftercare following left knee joint replacement surgery (Primary Dx) from Last 3 Months Immunizations Immunization Administration [...] LEFT 11/21/2022 N/A BREAST BIOPSY 11/21/2022 Right JOINT REPLACEMENT 06/07/2024 Medical History Medical History Date Comments Hx Other Medical 2005 hypothyroid Disorder of thyroid Thyroid dise ase; Comments: SARA 04/18/2014 -; Outcome: hypothyroidism Hx Other Medical menorrhagia; Co mments: SARA 04/18/2014 - Cyst of skin Neck pain Pain in wrist Shoulder pain Hemangioma of skin Multinodular goiter GERD (gastroesophageal reflux disease) Allergic rhinitis Asthma Autoimmune disease Hypothyroidism PONV (postoperative nausea and vomiting) Depression Anxiety Cancer (HCC) 2022 Chronic bronchitis (HCC) 1999 Family History Medical History Relation Name Comments Other Brother Alive and well; Acute lymphoblastic leukemia Father En House Cancer Father En House Depression Father En House Hypertension Father En House Hypertension; Leukemia Father En Rivera Leukemia; Clotting disorder Father's Sister Nia Rivera Hyperlipidemia Father's Sister Nia Rivera Cancer Maternal Grandmother Heidi Isabel Colon cancer Maternal Grandmother Heidi Isabel Breast cancer Maternal cousin 2nd cousin Thyroid disease Mother Thyroid dise ase; /Thyroid disorder; 70s y. Recurrent blod clots. Mother's Sister 2 Susana C ook Diabetes Mother's Sister 2 Susanaswetha Barber Diabetes m ellitus; Leukemia Mother's Sister 3 Leukemia; Lung cancer Other 1 Family history of Cancer, lung; Liver cancer Other 2 Family history of liver cancer; Coronary artery disease Paternal Grandfather En [facility] e Coronary artery disease; Early Paternal Grandfather En Rivera Heart attack Paternal Grandfather En Rivera Clotting disorder Paternal Grandmother Renetta Rivera Recurrent Blood clots Paternal Grandmother Renetta H ouse Ovarian cancer Neg Hx Thyroid cancer Neg Hx Relation Name Status Comments Brother Alive Cousin Alive Father En Rivera Alive Father's Sister Nia Rivera Alive Maternal Grandmother Heidi Isabel Alive Maternal cousin 2nd cousin Mother Alive Mother's Sister 1 Alive Mother's Sister 2 Susana Barber Alive Mother's Sister 3 Other 1 Other 2 Paternal Grandfather En Rivera Paternal Grandmother Renetta Rivera Alive Social History Tobacco Use Types Packs/Day Years [...] on file Legal Sex Female 1:41 AM DIRECTOR [employer]LO[employer] INTELLIGENCE Gender Identity Not on file Sexual Orientation [...] Sign Reading Time Taken Comments Blood Pressure 152/87 10/13/2024 9:30 AM CDT Pulse 76 10/13/2024 9:30 AM CDT Temperature 36.2 C (97.1 F) 10/06/2024 10:21 AM CDT Respiratory Rate 18 08/09/2024 9:31 AM CDT Oxygen Saturation 99% 10/06/2024 10: 21 AM CDT Inhaled Oxygen Concentration - - Weight 110.1 kg (242 lb 12.8 oz) 10/13/2024 9:30 AM CDT Height 172.7 cm (5' 8) 10/13/2024 9:30 AM CDT Body Mass Index 36.92 10/13/2024 9:30 AM CDT Plan of Treatment Upcoming Encounters Date Type Department Care Team (Late st Contact Info) Description 02/08/2025 7:55 AM DIRECTOR GLOBAL INTELLIGENCE Hospital Encounter [address] [address]Pravin Mancera MD [address] [facility] [place] [address] 02/08/2025 7:55 AM DIRECTOR [employer]LOBAL INTELLIGENCE - 02/08/2025 8:25 AM DIRECTOR GLOBAL INTELLIGENCE Surgery [address] [address] Pravin Macias MD [address] [facility] [place] [address] COLONOSCOPY Scheduled Procedures Name Priority Associated Diagnoses Date/Ti me COLONOSCOPY Encounter for screening colonoscopy Family history of colonic polyps 02/08/2025 7:55 AM DIRECTOR [employer]LOBAL INTELLIGENCE Health Maintenance Due Date Last Done Comments Hepatitis C Screening 1970 DTaP/Tdap/Td Vaccine (1 - Tdap) 1980 Hepatitis B Screening 12/16/1987 Pneumococcal vaccine <65 (1 of 2 - PCV) 1988 Zoster Vaccine (2 of 2) 03/05/2024 01/09/2024 Covid-19 Vaccine (7 - Pfizer risk 2023- season) 2024 01/09/2024, 01/09/2024, 12/31/2022, Additional history exists Depression Screening 02/11/2025 02/12/2024, 01/06/2024, 01/06/2024, Additional history exists Regular Well Visit/Exam 18-64 02/11/2025, 01/06/2024, 02/09/2023, Additional history exists Breast Cancer Screening-Mammogram 09/06/2025 09/06/2024, 09/01/2023, 11/07/2022, Additional history exists Colon Cancer Screening-Colonoscopy 02/05/2030 02/06/2020 Cervical Cancer Screening Discontinued 02/12/2024 Influenza Vaccine Discontinued Medical Devices Implanted Type Area Obstetric Assistant Device Identifier Shelf Expiration Date Model / Serial / Lot Bard Peripheral Vascular Marker Breast Dual Trigger Pva Ultraclip [id number] - [id number] - [id number] Implanted:Qty: 1 on 11/21/2022 by Nasim Peñaloza MD at [facility] Breast Right: Breast [employer] Per[employer] 03/05/2025 [id number] / [id number] / Description:US guided right breast biopsy in 2:00 area; 3cmfn; cores x3 Bard Peripheral Vascular Ultraclip Bard 17ga 10cm 2 Trigger Permanent Ultrasound [id number] - [id number] - [id number] Implanted:Qty: 1 on 11/21/2022 by Nasim Peñaloza MD at [facility] Breast Right: Breast [employer] 11/03/2024 [id number] / [id number] / Description:US guided right axillary lymph node with mild cortical thickening (4 mm in thickness); cores x5 Ac[employer] Marker Tissue Needle Delivery Spiral Capped Seed Radiopaque [employer]ace [employer]ator Stainless Steel Low Nickel [employer] [id number] - [id number] Implanted:Qty: 1 on 01/12/2023 at [facility] AcuFocus [id number] / / Procedures Procedure Name Priority Date/Time Associated Diagnosis Comments SURGICAL PATHOLOGY Routine 09/29/2024 12:11 PM CDT Skin abnormalities SCREENING MAMMOGRAM BILATERAL W ALLEN Schedule Routine, Read Routine (OP Routine) 09/06/2024 3:00 PM CDT History of breast cancer Malignant neoplasm of upper-inner quadrant of right breast in female, estrogen receptor positive (HCC) EGFR Routine 08/09/2024 9:14 AM CDT Lipid screening EGFR Routine 08/09/2024 9:14 AM CDT DIFFERENTIAL AUTO Routine 08/09/2024 9:1 4 AM CDT Lipid screening HEMOGLOBIN A1C Routine 08/09/2024 9:14 AM CDT CREATININE Routine 08/09/2024 9:14 AM CDT TSH Routine 08/09/2024 9:14 AM CDT Hypothyroidism, unspecified type T4, FREE Routine 08/09/2024 9:14 AM CDT Hypothyroidism, unspecified type CBC WITH AUTO DIFFERENTIAL Routine 08/09/2024 9:14 AM CDT Lipid screening COMPREHENSIVE METABOLIC PANEL Routine 08/09/2024 9:14 AM CDT Lipid screening LIPID PANEL Routine 08/09/2024 9:14 AM CDT Lipid screening SCAN - RADIOLOGY/IMAGING 08/04/2024 PAP AND HPV, REFLEX TO HPV GENOTYPES Routine 02/12/2024 12:28 PM DIRECTOR GLOBAL INTELLIGENCE Well woman exam COLONOSCOPY 02/06/2020 8:09 AM DIRECTOR GLOBAL INTELLIGENCE from Last 3 Months or Most Recently Relevant to Health Maintenance Results * Surgical pathology (09/29/2024 12:11 PM CDT) Tissue (Skin) 09/29/2024 12: 11 PM CDT 09/30/2024 12:11 PM CDT Narrative PATHOLOGY CH - 10/05/2024 5:17 PM CDT [facility] results best viewed via link to PDF [facility] Department of Pathology [address] [place] [address] Note to Patients: This report may contain a detailed description of human tissue sent by a health care provider to the laboratory for pathologic evaluation. The content of this report is essential for diagnosis and may provide important critical findings. This information may be unfamiliar to patients to review without a medical professional present. It is advised that the patient review this report in the presence of a health care provider who can answer questions and explain the details. Final Report Patient Name: MISTY RIVERA Address: [address] [place] [address]- Gender: F : 1970 (Age: 53) Service: Location: N : [id number] [facility] #: [id number] Patient Type: SPECIMEN Taken: 09/29/2024 Received: 09/30/2024 Accessioned: 09/30/2024 Reported: 10/05/2024 Physician(s):Nasim Mukherjee MD Diagnosis: Skin, right upper leg, excision: - Dermatofibroma, features compatible with, with associated chronic inflammation and scarring. Gladis Whiting M.D. Report Electronically Reviewed and Signed Out By Gladis Whiting M.D. 10/05/2024 17:17:26 Specimen(s) Received: A: Right upper leg Microscopic Description: Microscopic examination of the right upper leg show skin with a dermis showing a vaguely nodular proliferation of what appear to be bland appearing spindle cells interlacing with collagen and background chronic inflammation. The individual spindle cells show no significant cytologic atypia. There is no evidence of mitotic activity or necrosis. The areas surrounding this nodule show dense collagen, compatible with scarring. Immunohistochemical stains are performed (with appropriate controls) to further evaluate this biopsy. The spindle cells do show some staining for factor 13 a, but are negative for del cid keratin AE1/AE 3, muscle actin, S100, CD34 and Desmin. Histomorphology is suggestive of a dermatofibroma with associated scarring and inflammation. The lesion is completely excised. Intradepartmental consultation: Dr. Cabrera has reviewed the slides and concurs. Clinical History: Skin abnormalities Procedure: skin, ex Gross Description: The specimen is submitted in a single formalin filled container labeled MISTY [place] and R upper leg. It is a calvert skin ellipse, 2.2 x 1 x 0.8 cm. There is a circumscribed area of hypopigmentation, 7 x 6 mm the grossly does not involve the margins. The margins are inked. The specimen is sectioned and entirely submitted in A 1-A2 with the tips in A1. Félix Chong/Gladis Whiting M.D. REPORT IMAGES AND SCANNED DOCUMENTS, IF INCLUDED, ONLY VIEWABLE IN PDF VERSION OF REPORT The performance characteristics of some immunohistochemical stains, fluorescence in-situ hybridization tests and immunophenotyping by flow cytometry cited in this report (if any) were determined by the Surgical Pathology Department at [facility] as part of an ongoing air quality technician program and in compliance with federally mandated regulations drawn from the Clinical Laboratory Improvement Act of 1988 (CLIA '88). Some of these tests rely on the use of analyte specific reagents and are subject to specific labeling requirements by the US Food and Drug Administration. Such diagnostic tests may only be performed in a facility that is certified by the Department of Health and Human Services as a high complexity laboratory under CLIA '88. The FDA has determined that such clearance or approval is not necessary. This test is used for clinical purposes. It should not be regarded as investigational or for research. Nevertheless, federal rules concerning the medical use of analyte specific reagents require that the following disclaimer be attached to the report: This test was developed and its performance characteristics determined by the Surgical Pathology Department [facility]. It has not been cleared or approved by the U. S. Food and Drug Administration. Note for decalcified specimens: This assay has not been validated on decalcified tissues. Results should be interpreted with caution given the possibility of false negativity on decalcified specimens Nasim Mukherjee MD LAB PATHOLOGY OR DERABLES Final Result PATHOLOGY [address] [place] [address] * Screening Mammogram Bilateral W Allen (09/06/2024 3:00 PM CDT) Anatomical Region Laterality Modality Breast Bilateral Mammography Impressions 09/07/2024 11:01 AM CDT Bilateral No evidence of malignancy in either breast. OVERALL BI-RADS FINAL ASSESSMENT: 2 - Benign RECOMMENDATION: Recommend bilateral annual screening mammography. Narrative 09/07/2024 11:01 AM CDT EXAMINATION: Screening Mammogram Bilateral W Allen: 09/06/2024 COMPARISON: Relevent prior studies available at the time of interpretation were reviewed, including the most recent mammogram on: 01/07/2024. TECHNIQUE: Mammography was performed with 2D and digital breast tomosynthesis (DBT) images. CAD was utilized. BREAST PARENCHYMAL COMPOSITION: There are scattered areas of fibroglandular density. FINDINGS: Right 1) Post-Surgical Finding: There are post breast conservation therapy findings seen in the right breast. This finding is benign. There is no suspicious mass, calcification, or architectural distortion. Left There is no suspicious mass, calcification, or architectural distortion. There are no significant changes from the prior study. us Bernadette Ma MD IMG MAMMO PROCEDURES Fi nal Result * eGFR (08/09/2024 9:14 AM CDT) eGFR 69 >=60 mL/min/1. 73 m2 Comment: Interpretive Data [...] of Race in Diagnosing Kidney Disease, JASN 202). The CKD-EPI equation should not be used for patients with unstable renal function and has not been validated in children and those over 70. Current interpretive data was last reviewed 2021. Testing performed by: [facility], [address], [place] [address] Blood 08/09/2024 9:14 AM CDT 08/09/2024 9:37 AM CDT us Arnoldo Saldana MD LAB BLOOD ORDERABLES Edna williamson Result [facility] [address] [place] [address] * eGFR (08/09/2024 9:14 AM CDT) eGFR 78 >=60 mL/min/1. 73 m2 Comment: Interpretive Data [...] of Race in Diagnosing Kidney Disease, JASN 2021). The CKD-EPI equation should not be used for patients with unstable renal function and has not been validated in children and those over 70. Current interpretive data was last reviewed 2021. Testing performed by: [facility], [address] [place] [address] Urine/Blood 08/09/2024 9:14 AM CDT 08/09/2024 9:37 AM CDT Stu Farnsworth MD LAB BLOOD ORDERABLES Final Result [facility] [address] Department [place] [address] * (ABNORMAL) Differential, auto (08/09/2024 9:14 AM CDT) Neutrophil abs 10.06(H) 1.50 - 6.50 K/cumm Comment:Testing performed by : [place] [address], [place] [address] Imm gran abs 0.22(H) 0.00 - 0.10 K/cumm [facility] Comment:Testing performed by : [facility] [address], [address] [place] [address] Lymphocyte abs 3.51(H) 0.80 - 3.30 K/cumm [facility] Comment:Testing performed by : [facility] 2, [address] [place] [address] Monocyte abs 1.18(H) 0.20 - 0.80 K/cumm [facility] Comment:Testing performed by : [facility] 2, [address] [place] [address] Eosinophil abs 0.09 0.00 - 0.50 K/cumm [facility] Comment:Testing performed by : [facility] 2, [address] [place] [address] Basophil abs 0.08 0.00 - 0.10 K/cumm [facility] Comment:Testing performed by : [facility] 2, [address] [place] [address] Neutrophil pct 66.4 % [facility] Comment: Interpretive Data Percent cell count reference ranges are not reported, since discordance with absolute values may lead to misinterpretation of CBC data. Current Interpretive Data was last revised on 2017. Testing performed by: [facility], [facility], [address] [place] [address] Imm gran pct 1.5 % [facility] Comment: Interpretive Data Percent cell count reference ranges are not reported, since discordance with absolute values may lead to misinterpretation of CBC data. Current Interpretive Data was last revised on 2017. Testing performed by: [facility], [facility], [address] [place] [address] Lymphocyte pct 23.2 % [facility] Comment: Interpretive Data Percent cell count reference ranges are not reported, since discordance with absolute values may lead to misinterpretation of CBC data. Current Interpretive Data was last revised on 2017. Testing performed by: [facility], [facility], [address] [place] [address] Monocyte pct 7.8 % [facility] Comment: Interpretive Data Percent cell count reference ranges are not reported, since discordance with absolute values may lead to misinterpretation of CBC data. Current Interpretive Data was last revised on 2017. Testing performed by: [facility], [facility], [address] [place] [address] Eosinophil pct 0.6 % [facility] Comment: Interpretive Data Percent cell count reference ranges are not reported, since discordance with absolute values may lead to misinterpretation of CBC data. Current Interpretive Data was last revised on 2017. Testing performed by: [facility], [facility], [address] [place] [address] Basophil pct 0.5 % [facility] Comment: Interpretive Data Percent cell count reference ranges are not reported, since discordance with absolute values may lead to misinterpretation of CBC data. Current Interpretive Data was last revised on 2017. Testing performed by: [facility], [facility], [address] [place] [address] Blood 08/09/2024 9:14 AM CDT 08/09/2024 9:16 AM CDT Arnoldo Saldana MD LAB BLOOD ORDERABLES Edna williamson Result [facility] [address] [facility] Department [place] [address] * (ABNORMAL) CBC with auto differential (08/09/2024 9:14 AM CDT) WBC 15.14(H) 3.80 - 9.90 K/cumm Comment:Testing performed by : [place] [address] [place] [address] Hgb 14.2 11.9 - 15.5 g/dL [facility] Comment:Testing performed by : [place] [address] [place] [address] Hct 43.3 35.6 - 45.5 % [facility] Comment:Testing performed by : [place] [address] [place] [address] Plt 303 150 - 400 K/cumm [facility] Comment:Testing performed by : [place] [address] [place] [address] MPV 10.4 9.1 - 12.3 fL [facility] Comment:Testing performed by : [place] [address] [place] [address] RBC 4.87 3.90 - 5.20 M/cumm LIBORIO KENNEDYCH Comment:Testing performed by : [place] [address] [place] [address] MCV 88.9 81.3 - 96.4 fL [facility] Comment:Testing performed by : [place] [address] [place] [address] MCH 29.2 27.1 - 33.3 pg [facility] Comment:Testing performed by : [facility], [facility], [address] [place] [address] MCHC 32.8 32.3 - 35.7 g/dL LIBORIO KENNEDY Comment:Testing performed by : [facility], [facility], [address] [place] [address] RDW CV 14.0 11.1 - 14.9 % [facility] Comment:Testing performed by : [facility], [facility], [address] [place] [address] RDW SD 45.4 35.7 - 48.1 fL [facility] Comment:Testing performed by : [facility], [facility], [address] [place] [address] ANC Prelim 10.06(H) 1.50 - 6.50 K/cumm [facility] Comment: Interpretive Data The rapid ANC is a preliminary automated count and may vary from the final ANC (Neut Abs) reported in the WBC differential that follows. Current interpretive data was last revised 2024. Testing performed by: [facility], [facility], [address] [place] [address] Blood 08/09/2024 9:14 AM CDT 08/09/2024 9:16 AM CDT us Arnoldo Saldana MD LAB BLOOD ORDERABLES Edna l Result [facility] [address] [address]. Department of Laboratories [place] [id number] * TSH (08/09/2024 9:14 AM CDT) Thyroid Stimulating Hormone 2.95 0.30 - 4.20 mcIUnit/mL Comment:Testing performed by : [facility], [address] [place] [address] Blood 08/09/2024 9:14 AM CDT 08/09/2024 9:37 AM CDT Arnoldo Saldana MD LAB BLOOD ORDERABLES Edna l Result Performing Organization Address [facility] Co de Phone Number JENNINER [facility] [address] [address]. [facility] [employer] [place] [address] * (ABNORMAL) T4, free (08/09/2024 9:14 AM CDT) Pathologist [facility] Free T4 1.74(H) 0.90 - 1.70 ng/dL Comment:Testing performed by : [facility], [address] [place] [address] Blood 08/09/2024 9:14 AM CDT 08/09/2024 9:37 AM CDT Arnoldo Saldana MD LAB BLOOD ORDERABLES Edna l Result Performing Organization Address [facility] Co de Phone Number [facility] [address] [address] [employer]. [facility] [employer] [place] [address] * (ABNORMAL) Hemoglobin A1c (08/09/2024 9:14 AM CDT) [facility] Hgb A1C 5.7(H) 4.0 - 5.6 % Comment:Testing performed by : [facility], [address] [place] [address] Estimated Average Glucose 117 mg/dL LIBORIO LUTZWCH Comment: The ADA recommends reporting an estimated Average Glucose (eAG) with all Hemoglobin A1c results using the equation derived from a study of 507 normal and diabetic adults. Minority populations were underrepresented and children were not included. (Diabetes Care 31:7485-0312, 2008). The eAG is not equivalent to a fasting glucose. Testing performed by: [facility], [address] [place] [address] Blood 08/09/2024 9:14 AM CDT 08/09/2024 9:37 AM CDT us Stu Farnsworth MD LAB BLOOD ORDERABLES Final Result Performing Organization Address [facility] Co de Phone Number [facility] [address] [facility]. [facility] [employer] [place] [address] * Creatinine (08/09/2024 9:14 AM CDT) Creatinine 0.88 0.60 - 1.10 mg/dL Comment:Testing performed by : [facility], [address] [place] [address] Urine/Blood 08/09/2024 9:14 AM CDT 08/09/2024 9:37 AM CDT us Stu Farnsworth MD LAB BLOOD ORDERABLES Final Result Performing Organization Address [facility] de Phone Number [facility] [address] [facility]. [facility] [employer] [place] [address] * Lipid panel (08/09/2024 9:14 AM CDT) Cholesterol 180 30 - 199 mg/dL Comment: Interpretive Data Ages < or = 19 years Acceptable: <170 mg/dL Borderline high: 170-199 mg/dL High: >or= 200 mg/dL Ages > or = 20 years Desirable: <200 mg/dL Borderline high: 200-239 mg/dL High: >or= 240 mg/dL Literature References: 1. Expert Panel on Integrated Guidelines for Cardiovascular Health and Risk Reduction in Children and Adolescents. Pediatrics 2011;128:S213 2. NCEP Expert Panel. Circulation 2004;110:227 Current Interpretive Data was last revised on 2017. Testing performed by: [facility], [address] [place] [address] Triglycerides 102 <=149 mg/dL [facility]IO L[facility] Comment: Interpretive Data Ages < or = 9 years Acceptable: <75 mg/dL Borderline high: 75-99 mg/dL High: >or= 100 mg/dL Ages 10 to 20 years Acceptable: <90 mg/dL Borderline high: 90-129 mg/dL High: >or= 130 mg/dL Ages > or = 20 years Desirable: <150 mg/dL Borderline high: 150-199 mg/dL High: 200-499 mg/dL Very high: >or= 499 mg/dL Literature References: 1. Expert Panel on Integrated Guidelines for Cardiovascular Health and Risk Reduction in Children and Adolescents. Pediatrics 2011;128:S213 2. NCEP Expert Panel. Circulation 2004;110:227 Current Interpretive Data was last revised on 2017. Testing performed by: [facility], [address], [place] [address] HDL 60 >=40 mg/dL [facility] Comment: Interpretive Data Ages < or = 19 years Acceptable: >45 mg/dL Borderline low: 40-45 mg/dL Low: <40 mg/dL Ages > or = 20 years Desirable: >or= 60 mg/dL Low: <40 mg/dL Literature References: 1. Expert Panel on Integrated Guidelines for Cardiovascular Health and Risk Reduction in Children and Adolescents. Pediatrics 2011;128:S213 2. NCEP Expert Panel. Circulation 2004;110:227 Current Interpretive Data was last revised on 2017. Testing performed by: [facility], [address], [place] [address] LDL, calculated 102 <=129 mg/dL [facility] Comment: Interpretive Data Ages < or = 19 years Acceptable: <110 mg/dL Borderline high: 110-129 mg/dL High: >or= 130 mg/dL Ages > or = 20 years Optimal: <100 mg/dL Near optimal: 100-129 mg/dL Borderline high: 130-159 mg/dL High: >160 mg/dL Calculated using the George LDL-C estimating equation. This equation was implemented on 2023. Prior to this date LDL-C was estimated using the Friedewald equation. Literature References: 1. Expert Panel on Integrated Guidelines for Cardiovascular Health and Risk Reduction in Children and Adolescents. Pediatrics 2011;128:S213 2. NCEP Expert Panel. Circulation 2004;110:227 3. George Cordova et al. CAMMY Cardiol. 2020 July 07;5(5):540-548. doi: 10.1001/jamacardio.2020.0013 Current Interpretive Data was last revised on 2023. Testing performed by: [facility], [address] [place] [address] Non-HDL Cholesterol 120 mg/dL LIBORIO RAMSEY Comment: Interpretive Data Ages < or = 19 years Acceptable: <120 mg/dL Borderline high: 120-144 mg/dL High: >145 mg/dL Ages > or = 20 years When triglycerides are >200 mg/dL, Non-HDL cholesterol is a secondary target of therapy with treatment goals that are 30 mg/dL greater than the LDL cholesterol target. Literature References: 1. Expert Panel on Integrated Guidelines for Cardiovascular Health and Risk Reduction in Children and Adolescents. Pediatrics 2011;128:S213 2. NCEP Expert Panel. Circulation 2004;110:227 Current Interpretive Data was last revised on 2017. Testing performed by: [facility], [address] [place] [address] Chol/HDL ratio 3 LIBORIO RAMSEY Comment:Testing performed by : [facility], [address] [place] [address] Blood 08/09/2024 9:14 AM CDT 08/09/2024 9:37 AM CDT us Arnoldo Saldana MD LAB BLOOD ORDERABLES Edna l Result LIBORIO LUTZ[facility] [address] [address]. Department [place] [address] * (ABNORMAL) Comprehensive metabolic panel (08/09/2024 9:14 AM CDT) Sodium 142 135 - 145 mmol/L Comment:Testing performed by : [facility], [address] [place] [address] Potassium, pl 4.4 3.3 - 4.9 mmol/L LIBORIO RAMSEY Comment:Testing performed by : [facility], [address] [place] [address] Chloride 105 97 - 110 mmol/L LIBORIO RAMSEY Comment:Testing performed by : [facility], [address], [place] [address] CO2 24 22 - 32 mmol/L CERNER [facility] Comment:Testing performed by : [facility], [address], [place] [address] Anion gap 13 2 - 15 mmol/L CERNER [facility] Comment:Testing performed by : [facility], [address], [place] [address] BUN 31(H) 6 - 25 mg/dL CERNER [facility] Comment:Testing performed by : [facility], [address], [place] [address] Creatinine 0.97 0.60 - 1.10 mg/dL [facility]ER [facility] Comment:Testing performed by : [facility], [address], [place] [address] Glucose 95 70 - 199 mg/dL CERNER [facility] Comment: [...] was last revised 2022. Testing performed by: [facility], [address], [place] [address] Calcium 9.5 8.5 - 10.3 mg/dL [facility]ER [facility] Comment:Testing performed by : [facility], [address], [place] [address] Bilirubin, total 0.4 0.1 - 1.2 mg/dL [facility]ER [facility] Comment:Testing performed by : [facility], [address], [place] [address] Protein, pl 7.8 6.5 - 8.5 g/dL [facility]ER [facility] Comment:Testing performed by : [facility], [address], [place] [address] Albumin 4.4 3.5 - 5.0 g/dL CERNER [facility] Comment:Testing performed by : [facility], [address], [place] [address] Alk phos 103 40 - 130 Units/L CERNER [facility] Comment:Testing performed by : [facility], [address], [place] [address] ALT 17 7 - 45 Units/L CERNER [facility] Comment:Testing performed by : [facility], [address], [place] [address] AST 10 10 - 45 Units/L CERNER [facility] Comment:Testing performed by : [facility], [address], [place] [address] Blood 08/09/2024 9:14 AM CDT 08/09/2024 9:37 AM CDT Arnoldo Saldana MD LAB BLOOD ORDERABLES Edna l Result [facility] [address] [address]. Department [place] [address] * SCAN - RADIOLOGY/IMAGING (08/04/2024) Anatomical Region Laterality Modality Other Provider Scanning Final Result * Pap and HPV, reflex to HPV Genotypes (02/12/2024 12:28 PM DIRECTOR GLOBAL INTELLIGENCE) Clinical indication Comment [facility] - 01 Comment: NEGATIVE FOR INTRAEPITHELIAL LESION OR MALIGNANCY. CELLULAR CHANGES ASSOCIATED WITH ATROPHY AND INFLAMMATION ARE PRESENT. THIS SPECIMEN WAS RESCREENED PART OF OUR CRIME PREVENTION WORKER PROGRAM. Specimen adequacy: Comment [facility] - 01 Comment:Satisfactory for patti luation. Clinician provided ICD10 Comment [facility] 02 Comment:Z01.419 Performed by Comment [facility] - 01 Comment:Anand Martinez totechnologist (ASCP) QC reviewed by Comment [facility] - 01 Comment:Tom Odom, Jeanna ervisory Office Lead (ASC) . . [facility] - 01 Note: [...] not performed. Thin prep-Endocervical 02/12/2024 12:28 PM DIRECTOR GLOBAL INTELLIGENCE 02/12/2024 Narrative [facility] - 02/25/2024 10:09 AM DIRECTOR GLOBAL INTELLIGENCE Performed at: - [address] [id number] Welder Operator: Deanne Olivo MD, Phone: [phone] Performed at: 02 - [address] [id number] Welder Operator: Caroline Dupont MD, Phone: [phone] Performed at: 03 - [address] [id number] Welder Operator: Caroline Dupont MD, Phone: [phone] Specimen Comment: [id number] Specimen Comment: No. of containers..01 ThinPrep Vial Kim Otto NP LAB CYTOLOGY ORDERABLES Final Re sult [facility] - 01 [facility] 02 [facility] 03 * COLONOSCOPY (02/06/2020 8:09 AM DIRECTOR GLOBAL INTELLIGENCE) Anatomical Region Laterality Modality Other Narrative Procedure Note Aquiles Tavarez MD - 02/06/2020 8:09 AM CST [facility] Patient Name: Misty Rivera Procedure Date: 02/06/2020 8:09 AM Date of : 1970 Admit Type: Outpatient Age: 49 Gender: Female Attending MD: Aquiles Tavarez M.D. Room: [facility] ENDOSCOPY ROOM 2 Note Status: [...] was passed under direct vision. The Colonoscope [id number] was introduced through the anusand advanced to [...] malignant neoplasm of colon CPT copyright 2017 [employer]. All rights reserved. The codes documented in this report are preliminary and upon icd 9 coder reviewmay be revised to meet current compliance requirements. Recognized by the [place] [employer] for promoting quality in endoscopy Aquiles Tavarez MD ENDOSCOPY PROCEDURES Final Re sult from Last 3 Months or Most Recently Relevant to Health Maintenance Insurance [facility] HMO/PPO Address: [address] [place] [address] GENERIC COPAY ASSIST [facility] HMO/PPO Address: [id number] [place] [address] Advance Directives For more information, please contact: [phone] * Full Code (Latest Code Status on File) Date Activated Date Inactivated Comments 02/06/2020 8:07 AM 02/06/2020 1:50 PM Care Teams Customer Project Manager Relationship Specialty Start Date End Date [place] [address] PCP - General 06/06/16 Lynn Yip MD [address] [facility] [address] [place] [address] Medical Oncologist/Associate Relations Specialist Medical Oncology 02/03/23 Juan Bateman MD [address] [facility] [address] [place] [address] Radiation Oncologist Radiation Oncology 07/27/23 Bernadette Ma MD [address] [facility] [address] [place] [address] Surgeon Surgical Oncology 07/27/23 Alli Stevens MD PhD [address] [facility] [address] [place] [address] Radiation Oncologist Radiation Oncology 07/27/23
--- OUTSIDE RECORDS SUMMARY | 2024-10-26 14:21 | XMS_ITS | Clinical Summary ---
Author Organization [facility] Address [address] [place] [address] Care Team Providers Care Bricklayer Sewer Name Role Phone Julissa Lehman MD Primary Care Provider [phone] Source Comments [facility],non-owned Affiliates and Associated Physician Practices is amultiple site organization consisting of ambulatory clinics and hospital sitesin [place], [place], [place] and [place]. This disclosure is being madepursuant to the Care Everywhere program and may not contain all information available regarding this patient. Last updated 17.[facility] [place] Social History Tobacco Use Types Packs/Day Years [...] season) 2023 DEPRESSION SCREENING 03/09/2024 INFLUENZA VACCINE (#1) 2024 HIB VACCINE Aged Out No longer [...] complete this topic Insurance ANTH Care Teams Bricklayer Sewer Relationship Specialty Start Date End Date Julissa Lehman MD [address] [place] [address] PCP - General 07/04/20
== END 2024-10-26 13:52 | disposition home or self-care (01) ==
PROVIDERS: PCP Family Medicine; Visit Provider Orthopaedic Surgery
DX: M17.11 Unilateral primary osteoarthritis, right knee (principal)
CPT/HCPCS: 73564

== ENCOUNTER 2024-11-10 12:13 | Outpatient (CLI) | payer OTHER, SELFPAY ==
--- OUTSIDE RECORDS SUMMARY | 2005-08-27 09:15 | XMS_ITS | Continuity of Care Document ---
Author Organization [facility] Address [address] [place] [address] [place] [address] Phone Care Team Providers Care Hat Measurer Name Role Phone Brad Avitia MD Unavailable Unavailable Advance Directives Directive Yes / No Effective Date File Name No Information Encounters Encounter Description Practice Location Reason(s) For Visit Diagnoses Date Provider Providers Copied on Encounter [facility], [address] [place] [address] [address], [place], [place], [id number], [place] tel:[phone] [address] Professional No Information Aug- 1200 6 Sadi Salinas. [address] [facility] [address], [place], [place], [id number], [place]. tel:[phone] Family History Family Member Type Diagnosis Age At Onset No Information Payers Payer name Insurance type Covered constitution party ID Authoriza tion(s) BCBS [place] Out Of [place] [id number] Social History Type Description Quantity Date Captured [...]
--- OUTSIDE RECORDS SUMMARY | 2024-11-10 12:31 | XMS_ITS ---
Author Organization [facility] Address [address] [place] [address] Care Team Providers Care Program Facilitator Name Role Phone Arnoldo Saldana MD Primary Care Provider [phone] Lynn Yip MD Unavailable Juan Bateman MD Unavailable Bernadette Ma MD Unavailable [phone] Alli Stevens MD PhD Unavailable [phone] Active Problems Problem Noted Date Diagnosed Date [...] from 02/17/2023:Stage IA(pT1b, pN0, cM0, G3, ER+, VA+, HER2-) - Signed by Iron Currie MD on 02/17/2023 Thyroid nodule 2022 Assessment & Plan (2022 3:35 PM CDT): Thyroid Ultrasound Epistaxis 2022 Assessment & Plan (2022 3:35 PM CDT): Nasal saline spray (Simply saline, [place] Remed[place], [place], [place]) 2 second sprays or 2 squeezes into [...] Nasal saline spray (Simply saline, [employer], [place], [place]) 2 second sprays or 2 squeezes into [...] (12/23/2019): Added automatically from request for surgery [id number] Family history of colon cancer 12/23/2019 Overview (12/23/2019): Added automatically from request for surgery [id number] Anxiety 05/25/2019 Assessment & Plan (05/25/2019 9:12 [...]
--- OUTSIDE RECORDS SUMMARY | 2024-11-10 12:32 | XMS_ITS | Encounter Summary ---
Author Organization [facility] Address [address] [facility] [place] [address] Care Team Providers Care Diabetes Education Coordinator Name Role Phone Julissa Lehman MD Primary Care Provider [phone] Encounter Details Date Type Department Care Team (Late st Contact Info) Description 07/05/2020 Lab Requisition [facility] DermPath Lab [address] [facility] [place] [address] Edmund Wang Jr., MD [address] [facility] [address] [place] [address] Social History Tobacco Use Types Packs/Day Years [...] AM CDT) Case Report Dermatopathology Report Case: [id number] Authorizing Provider: Edmund Wang Jr., MD Collected: 07/03/2020 12:00 AM Ordering Location: [facility] Derm[facility] Lab Received: 07/05/2020 05:38 AM Pathologist: [...] of a non-oriented ellipse of skin measuring [id number], bisected. Jar 0. 12:39 PM CDT DERMATOPATHOLOGY [...] characteristic determined by the Dermatopathology Laboratory at [facility], directed by Dr. Micha Esteban. These tests need not be, and therefore are not, approved by the [place] Food and Drug Administration. The tests are used for clinical purposes. Billing Codes Specimen Charges Stain Charges 12638 1 12:39 PM CDT DERMATOPATHOLOGY LABORATORY Embedded Images 12:39 PM CDT DERMATOPATHOLOGY LABORATORY Pathology/Cytolog y TISSUE SPECIMEN FROM SKIN / Unknown 07/03/2020 07/05/2020 5:38 AM CDT us Edmund Wang Jr., MD LAB - PATHOLOGY/CYTOLOG Y ORDERABLES Final Result DERMATOPATHOLOGY LABORATORY [facility] - Department of Dermatology [address], [address] [phone] documented in this encounter Visit Diagnoses Not on filedocumented in this encounter Care Teams Diabetes Education Coordinator Relationship Specialty Start Date End Date Julissa Lehman MD [address] [place] [id number] PCP - General 07/04/20 documented as of this encounter
--- OUTSIDE RECORDS SUMMARY | 2024-11-10 12:32 | XMS_ITS | Clinical Summary ---
Author Organization [facility] Address [address] [place] [address] Care Team Providers Care Professional Skater Name Role Phone Julissa Lehman MD Primary Care Provider [phone] Source Comments [facility],non-owned Affiliates and Associated Physician Practices is amultiple site organization consisting of ambulatory clinics and hospital sitesin [place], [place], [place] and [place]. This disclosure is being madepursuant to the Care Everywhere program and may not contain all information available regarding this patient. Last updated 17.[facility] [employer] Social History Tobacco Use Types Packs/Day Years [...] complete this topic Insurance ANTH Care Teams Professional Skater Relationship Specialty Start Date End Date Julissa Lehman MD [address] [place] [address] PCP - General 07/04/20
--- OUTSIDE RECORDS SUMMARY | 2024-11-10 12:32 | XMS_ITS | Encounter Summary ---
Author Organization [facility] Healthcare Address [address] [place] [address] Care Team Providers Care Paster Hat Lining Name Role Phone Arnoldo Saldana MD Primary Care Provider [phone] Lynn Yip MD Unavailable Juna Bateman MD Unavailable Bernadette Ma MD Unavailable [phone] Alli Stevens MD PhD Unavailable [phone] Reason for Visit * Reason Onset Date Comments Scheduling Appointments 08/22/2020 Confirim ing mammogram appt- no answer Encounter Details Date Type Department Care Team (Late st Contact Info) Description 08/22/2020 Telephone [facility] [address] [place] [address] [address] Bradford RT Scheduling Appointments (Confiriming mammogram [...] on file Legal Sex Female 1:41 AM COMMUNICATIONS ENGINEERING TECHNICIAN Gender Identity Not on file Sexual Orientation Straight 08/10/2019 7: 45 PM CDT documented as of this encounter Plan of Treatment Upcoming Encounters Date Type Department Care Team (Late st Contact Info) Description 02/08/2025 7:55 AM COMMUNICATIONS ENGINEERING TECHNICIAN Hospital Encounter [facility] [address] [place] [address] Pravin Macias MD [address] [place] [address] 02/08/2025 7:55 AM COMMUNICATIONS ENGINEERING TECHNICIAN - 02/08/2025 8:25 AM COMMUNICATIONS ENGINEERING TECHNICIAN Surgery [address] [address] Pravin Macias MD [address] [place] [address] COLONOSCOPY Scheduled Procedures Name Priority Associated Diagnoses Date/Ti me COLONOSCOPY Encounter for screening colonoscopy Family history of colonic polyps 02/08/2025 7:55 AM COMMUNICATIONS ENGINEERING TECHNICIAN documented as of this encounter Visit Diagnoses Not on filedocumented in this encounter Care Teams Paster Hat Lining Relationship Specialty Start Date End Date Arnoldo Saldana MD [address] [place] [address] PCP - General 06/06/16 Lynn Yip MD [address] [place] [address] Medical Oncologist/Intermediate School Teacher Medical Oncology 02/03/23 Juan Bateman MD [address] [place] [address] Radiation Oncologist Radiation Oncology 07/27/23 Bernadette Ma MD [address] [place] [address] Surgeon Surgical Oncology 07/27/23 Alli Stevens MD PhD [address] [place] [address] Radiation Oncologist Radiation Oncology 07/27/23 documented as of this encounter
--- OUTSIDE RECORDS SUMMARY | 2024-11-10 12:32 | XMS_ITS | Clinical Summary ---
Author Organization [facility] Address [address] [place] [address] Care Team Providers Care Conference Specialist Name Role Phone Arnoldo Saldana MD Primary Care Provider [phone] Lynn iYp MD Unavailable Juan Bateman MD Unavailable Bernadette Ma MD Unavailable [phone] Alli Stevens MD PhD Unavailable [phone] Allergies No known active allergies Medications magnesium gluconate 200 mg tabletIndicati ons:hypomagnes emia 1 tablet (200 mg total) Active multivitamin tabletIndicati ons:Vitamin Deficiency Prevention Take 1 tablet by mouth Active omega-3 fatty acids-fish oil 300-1,000 mg capsule Take 2 capsules (2 g total) by mouth daily Active sertraline (ZOLOFT) 100 mg tablet Take 1 tablet (100 mg total) by mouth daily 90 tablet 4 4 025 Active temazepam (RESTORIL) 15 mg capsuleIndicat [...] after a meal. 90 tablet 3 5 026 Active clonazePAM (KlonoPIN) 0.5 mg tablet Take [...] your MRI scan. 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 Samples given today in office. Plan to submit appeal to insurance to hopefully get insurance coverage for the [employer] since use of hormonal treatment is contraindicated [...] from 02/17/2023:Stage IA(pT1b, pN0, cM0, G3, ER+, MT+, HER2-) - Signed by Iron Currie MD on 02/17/2023 Thyroid nodule 2022 Assessment & Plan (2022 3:35 PM CDT): Thyroid Ultrasound Epistaxis 2022 Assessment & Plan (2022 3:35 PM CDT): Nasal saline spray (Simply saline, Little Remedies, [place], [place]) 2 second sprays or 2 squeezes into [...] Nasal saline spray (Simply saline, [place] Rem[place]ies, [place], [place]) 2 second sprays or 2 squeezes into [...] Maxillary Antrostomy with tissue removal Endoscopic Left Eemlina bullosa removal Stealth Image guidance utilized Assessment [...] (12/23/2019): Added automatically from request for surgery [id number] Family history of colon cancer 12/23/2019 Overview (12/23/2019): Added automatically from request for surgery [id number] Anxiety 05/25/2019 Assessment & Plan (05/25/2019 9:12 [...] Encounters Date Type Department Care Team Description 11/03/2024 Results Follow-Up [facility] [address] [facility] [address], [address] [place] [address] Refugio Colmenares MD MRI Abdomen MRCP W WO Contrast Incl 3D 10/26/2024 Orders Only [facility] Health Information Management [address] [place] [address] Scanning, Provider 10/25/2024 8:10 AM CDT - 10/25/2024 11:59 PM CDT Hospital Encounter 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 10/06/2024 10:30 AM CDT Office Visit [address] [address] Shanda De La Torre NP Dermatofibroma (Primary Dx) 09/29/2024 11:30 AM CDT Procedure visit [address] [address] Nasim Mukherjee MD Benign neoplasm of skin of right lower extremity (Primary Dx) 09/29/2024 10:35 AM CDT - 09/29/2024 11:59 PM CDT Hospital Encounter [address] [address] Skin abnormalities Discharge Disposition: Discharge to home or self care 09/29/2024 Orders Only [address] [address] Nasim Mukherjee MD Skin abnormalities (Primary Dx) 09/20/2024 10:10 AM CDT Office Visit [address], [place] [address] Nasim Mukherjee MD Benign neoplasm of skin of right lower extremity (Primary Dx); Neoplasm of uncertain behavior 09/07/2024 Results Follow-Up [facility] [address] [place] [address] 8 [place] [address] Bernadette Ma MD Screening Mammogram Bilateral W Allen 09/06/2024 2:35 PM CDT - 09/06/2024 11:59 PM CDT Hospital Encounter [facility] [address] [place] [address] 8 [place] [address] History of breast cancer; Malignant neoplasm of upper-inner quadrant of right breast in female, estrogen receptor positive (HCC) Discharge Disposition: Discharge to home or self care 09/06/2024 2:30 PM CDT Office Visit [facility] Surgery [address] [place] [address] 8 [place] [address] Bernadette Ma MD 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 (Primary Dx); History of breast cancer 09/05/2024 Telephone [facility] [address] [place] [address] Corina Cornejo CMA from Last 3 Months Immunizations Immunization Administration [...] Disorder of thyroid Thyroid dise ase; Comments: [facility] 04/18/2014 -; Outcome: hypothyroidism Hx Other Medical menorrhagia; Co mments: [facility] 04/18/2014 - Cyst of skin Neck pain [...] Father En House Hypertension; Leukemia Father En House Leukemia; Clotting disorder Father's Sister Nia Rivera Hyperlipidemia Father's Sister Nia Rivera Cancer Maternal Grandmother Heidi Isabel Colon cancer Maternal Grandmother Heidi Isabel Breast cancer Maternal cousin 2nd cousin Thyroid disease Mother Thyroid dise ase; /Thyroid disorder; 70s y. Recurrent blod clots. Mother's Sister 2 Susana C ook Diabetes Mother's Sister 2 Susana Sunil Diabetes m ellitus; Leukemia Mother's Sister 3 Leukemia; Lung cancer Other 1 Family history of Cancer, lung; Liver cancer Other 2 Family history of liver cancer; Coronary artery disease Paternal Grandfather En Ulrich e Coronary artery disease; Early Paternal Grandfather En Rivera Heart attack Paternal Grandfather En Rivera Clotting disorder Paternal Grandmother Renetta Rivera Recurrent Blood clots Paternal Grandmother Renetta H ouse Ovarian cancer Neg Hx Thyroid cancer Neg Hx Relation Name Status Comments Brother Alive Cousin Alive Father En House Alive Father's Sister Nia House Alive Maternal Grandmother Heidi Isabel Alive Maternal [...] Frequency of Binge Drinking Not on file 09/2024 PHQ-2 Answer Date Recorded PHQ-2 Total Score [...] file Legal Sex Female 1:41 AM ASSISTANT TO THE PRESIDENT Gender Identity Not on file Sexual Orientation [...] Contact Info) Description 02/08/2025 7:55 AM ASSISTANT TO THE PRESIDENT Hospital Encounter [facility] 1 [place] [address] Pravin Macias MD [address] [facility] [place] [address] 02/08/2025 7:55 AM ASSISTANT TO THE PRESIDENT - 02/08/2025 8:25 AM ASSISTANT TO THE PRESIDENT Surgery [facility] [address] [place] [address] Pravin Macias MD [address] [facility] [address] [place] [address] COLONOSCOPY Scheduled Procedures Name Priority Associated Diagnoses Date/Ti me COLONOSCOPY Encounter for screening colonoscopy Family history of colonic polyps 02/08/2025 7:55 AM ASSISTANT TO THE PRESIDENT Health Maintenance Due Date Last Done Comments [...] Vaccine Discontinued Medical Devices Implanted Type Area Brine Purifier Device Identifier Shelf Expiration Date Model / Serial / Lot Bard Peripheral Vascular Marker Breast Dual Trigger Pva Ultraclip [id number] - [id number] - [id number] Implanted:Qty: 1 on 11/21/2022 by Nasim Peñaloza MD at [facility] Breast Right: Breast Bard Peripheral Vascular 03/05/2025 [id number] / [id number] / Description:US guided right breast biopsy in 2:00 area; 3cmfn; cores x3 Bard Peripheral Vascular Ultraclip Bard 17ga 10cm 2 Trigger Permanent Ultrasound [id number] - [id number] - [id number] Implanted:Qty: 1 on 11/21/2022 by Nasim Peñaloza MD at [facility] Breast Right: Breast Bard Peripheral Vascular 11/03/2024 [id number] / [id number] / Description:US guided right axillary lymph node with mild cortical thickening (4 mm in thickness); cores x5 [employer] Marker Tissue Needle Delivery Spiral Capped Seed Radiopaque Bilingual Medical Assistant Stainless Steel Low Nickel Sent[employer] [id number] - [id number] Implanted:Qty: 1 on 01/12/2023 at [facility] [employer] [id number] / / Procedures Procedure Name Priority Date/Time Associated Diagnosis Comments SCAN - RADIOLOGY/IMAGING 10/26/2024 MRI ABDOMEN MRCP W WO CONTRAST Schedule Routine, Read Routine (OP Routine) 10/25/2024 9:42 AM CDT NOEL gene mutation positive SURGICAL PATHOLOGY Routine 09/29/2024 12 :11 PM CDT Skin abnormalities SCREENING MAMMOGRAM BILATERAL W ALLEN Schedule Routine, Read Routine (OP Routine) 09/06/2024 3:00 PM CDT History of breast cancer Malignant neoplasm of upper-inner quadrant of right breast in female, estrogen receptor positive (HCC) PAP AND HPV, REFLEX TO HPV GENOTYPES Routine 02/12/2024 12:28 PM ASSISTANT TO THE PRESIDENT Well woman exam COLONOSCOPY 02/06/2020 8:09 AM ASSISTANT TO THE PRESIDENT from Last 3 Months or Most Recently Relevant to Health Maintenance Results * SCAN - RADIOLOGY/IMAGING (10/26/2024) Anatomical Region Laterality Modality Other us Provider Scanning Final Result * MRI Abdomen MRCP W WO Contrast Incl 3D (10/25/2024 9:42 AM CDT) Anatomical Region Laterality Modality Body N/A Magnetic Resonan ce 11/02/2024 5:22 PM CDT Narrative 11/02/2024 5:26 PM CDT EXAM DESCRIPTION: MRI ABDOMEN MRCP W WO CONTRAST INCL 3D REASON FOR STUDY: Panc ca screening AMTM gene mutation positive. TECHNIQUE: MRI of the abdomen performed without intravenous contrast according to the MRCP protocol. 3D images rendered on scanning unit and reviewed at time of interpretation. All images stored on PACS. COMPARISON: None FINDINGS: ABDOMEN: LOWER CHEST: No effusion. LIVER: Normal-sized liver with mild drop in signal on the opposed phase images consistent with steatosis no focal hepatic lesion. GALLBLADDER: Stones. No wall thickening or pericholecystic fluid BILE DUCTS: No intrahepatic or extrahepatic ductal dilatation. Common bile duct measures mm . SPLEEN: Normal size. No focal lesions. PANCREAS: No identified significant cystic or solid masses. No significant calcifications. No adjacent inflammation or peripancreatic fluid collections. Pancreatic duct not dilated. Pancreatic duct measures mm . ADRENALS: Normal. KIDNEYS/URINARY TRACT: No identified significant cystic or solid masses. No cysts. No hydronephrosis. GI: No visualized abnormality. PERITONEUM: No ascites. RETROPERITONEUM: No mass or adenopathy. VASCULATURE: No abdominal aortic aneurysm. MUSCULOSKELETAL: No acute findings. OTHER: No other abnormality. IMPRESSION: Normal MR appearance of the pancreas. No acute abnormalities. THIS IS AN ELECTRONICALLY VERIFIED FINAL REPORT 11/02/2024 5:26 PM - Electronically signed by Lanny Prince M.D. FT: FT Report ID: [id number] Reading Location: [id number] Procedure Note Lanny Jefferson MD - 11/02/2024 EXAM DESCRIPTION: MRI ABDOMEN MRCP W WO CONTRAST INCL 3D REASON FOR STUDY: Panc ca screening AMTM gene mutation positive. TECHNIQUE: MRI of the abdomen performed without intravenous contrast according to the MRCP protocol. 3D images rendered on scanning unit and reviewed at time of interpretation. All images stored on PACS. COMPARISON: None FINDINGS: ABDOMEN: LOWER CHEST: No effusion. LIVER: Normal-sized liver with mild drop in signal on the opposed phase images consistent with steatosis no focal hepatic lesion. GALLBLADDER: Stones. No wall thickening or pericholecystic fluid BILE DUCTS: No intrahepatic or extrahepatic ductal dilatation. Commonbile duct measures mm . SPLEEN: Normal size. No focal lesions. PANCREAS: No identified significant cystic or solid masses. Nosignificant calcifications. No adjacent inflammation or peripancreatic fluidcollections. Pancreatic duct not dilated. Pancreatic duct measures mm . ADRENALS: Normal. KIDNEYS/URINARY TRACT: No identified significant cystic or solid masses.No cysts. No hydronephrosis. GI: No visualized abnormality. PERITONEUM: No ascites. RETROPERITONEUM: No mass or adenopathy. VASCULATURE: No abdominal aortic aneurysm. MUSCULOSKELETAL: No acute findings. OTHER: No other abnormality. IMPRESSION: Normal MR appearance of the pancreas. No acute abnormalities. THIS IS AN ELECTRONICALLY VERIFIED FINAL REPORT 11/02/2024 5:26 PM - Electronically signed by Lanny Prince M.D. FT: FT Report ID: [id number] Reading Location: [id number] Bella Quiñonez NP IM MRI PROCEDURES Final Result * Surgical pathology (09/29/2024 12:11 PM CDT) Tissue (Skin) 09/29/2024 12: 11 PM CDT 09/30/2024 12:11 PM CDT Narrative PATHOLOGY - 10/05/2024 5:17 PM CDT EPIC results best viewed via link to PDF [facility] Department of Pathology [address] [place] [address] Note to Patients: This report may [...] Final Report Patient Name: MISTY RIVERA Address: [address] [place] [address]- Gender: F : 1970 (Age: 53) Service: Location: N : [id number] [facility] #: [id number] Patient Type: SPECIMEN Taken: 09/29/2024 Received: 09/30/2024 [...] a single formalin filled container labeled MISTY RIVERA and R upper leg. It is a [...] determined by the Surgical Pathology Department at [facility] as part of an ongoing quality assurance analyst program and in compliance with federally mandated [...] characteristics determined by the Surgical Pathology Department [facility]. It has not been cleared or approved by the U. S. Food and Drug Administration. Note for decalcified specimens: This assay has not been validated on decalcified tissues. Results should be interpreted with caution given the possibility of false negativity on decalcified specimens us Nasim Mukherjee MD LAB PATHOLOGY OR DERABLES Final Result PATHOLOGY [address] [place] [address] * Screening Mammogram Bilateral W Allen (09/06/2024 [...] IMG MAMMO PROCEDURES Fi nal Result * Pap and HPV, reflex to HPV Genotypes (02/12/2024 12:28 PM ASSISTANT TO THE PRESIDENT) Clinical indication Comment [facility] - 01 Comment: NEGATIVE FOR INTRAEPITHELIAL LESION OR MALIGNANCY. CELLULAR CHANGES ASSOCIATED WITH ATROPHY AND INFLAMMATION ARE PRESENT. THIS SPECIMEN WAS RESCREENED PART OF OUR STONE SPLITTER PROGRAM. Specimen adequacy: Comment [facility] - 01 Comment:Satisfactory for patti luation. Clinician provided ICD10 Comment [facility] 02 Comment:Z01.419 Performed by Comment [facility] - 01 Comment:Anand Martinez totechnologist (ASCP) QC reviewed by Comment [facility] - 01 Comment:Tom Odom, [facility] Flight Crew Ordnanceman (ASCP) . . [facility] - 01 Note: [...] (16,18,31,33,35,39,45,51,52,56,58,59,66,68) without differentiation. HPV Genotype Reflex Comment [facility] - Comment:Criteria not met, HP V Genotype not performed. Thin prep-Endocervical 02/12/2024 12:28 PM ASSISTANT TO THE PRESIDENT 02/12/2024 Narrative [facility] - 02/25/2024 10:09 AM ASSISTANT TO THE PRESIDENT Performed at: - Lab[address] [id number] [employer] Gun Hand: Deanne Olivo MD, Phone: [phone] Performed at: - [address] [id number] [employer] Gun Hand: Caroline Dupont MD, Phone: [phone] Performed at: - [address] [id number] [employer] Gun Hand: Caroline Dupont MD, Phone: [phone] Specimen Comment: [id number] Specimen Comment: No. of containers..01 ThinPrep Vial us Kim Otto PAPERHANGER SUPERVISOR LAB CYTOLOGY ORDERABLES Final Re sult [facility] - 01 [facility] 02 [facility] 03 * COLONOSCOPY (02/06/2020 8:09 AM ASSISTANT TO THE PRESIDENT) Anatomical Region Laterality Modality Other Narrative Procedure Note Aquiles Tavarez MD - 02/06/2020 8:09 AM CST [facility] Patient Name: Misty Wichita Procedure Date: 02/06/2020 8:09 AM Date of : 1970 Admit Type: Outpatient Age: 49 Gender: Female Attending MD: Aquiles Tavarez M.D. Room[facility] 2 Note Status: Finalized Patient [...] was passed under direct vision. The Colonoscope [id number] was introduced through the anusand advanced to [...] malignant neoplasm of colon CPT copyright 2017 [employer]. All rights reserved. The codes documented in this report are preliminary and upon professor of latin american studies reviewmay be revised to meet current compliance requirements. Recognized by the [employer] for promoting quality in endoscopy Aquiles Tavarez MD ENDOSCOPY PROCEDURES Final Re sult from Last 3 Months or Most Recently Relevant to Health Maintenance Insurance [facility] N[facility]US GENERIC COPAY ASSIST [facility] N[facility] Advance Directives For more information, please contact: [phone] * Full Code (Latest Code Status on File) Date Activated Date Inactivated Comments 02/06/2020 8:07 AM 02/06/2020 1:50 PM Care Teams Conference Specialist Relationship Specialty Start Date End Date Arnoldo Saldana MD [address] [place] [address] PCP - General 06/06/16 Lynn Yip MD [address] [place] [address] Medical Oncologist/Appliance Parts Counter Clerk Medical Oncology 02/03/23 Juan Bateman MD [address] [place] [address] Radiation Oncologist Radiation Oncology 07/27/23 Bernadette Ma MD [address] [facility] [address] [place] [address] Surgeon Surgical Oncology 07/27/23 Alli Stevens MD PhD [address] [facility] [address] [place] [address] Radiation Oncologist Radiation Oncology 07/27/23
[2024-11-10 12:40] LABS: Hematocrit 41.9 % (37.0-47.0); Hemoglobin 13.8 g/dL (12.0-15.0); Immature Granulocyte Percent A 0.3 % (0-0.5); Lymphocytes Absolute Auto 2.40 K/mm3 (0.9-3.2); Mean Corpuscular HGB Conc 32.9 g/dl (32-36); Mean Corpuscular Hemoglobin 29.2 pg (26-34); Mean Corpuscular Volume 88.6 fl (80-100); Nucleated Red Blood Cells Absolute Auto 0.000 K/mm3 (0.0-0.012); Nucleated Red Blood Cells Perc 0.0 % (0.0-0.2); Platelet Count Result 270 k/mm3 (150-375); Red Blood Count 4.73 M/mm3 (4.2-5.4); White Blood Count 6.7 K/mm3 (4.5-10.0)
[2024-11-10 12:57] LABS: Estimated Glomerular Filt Rate > 60; Glucose 114 mg/dL (65-110)
[2024-11-10 12:59] LABS: Hemoglobin A1C 5.4 % (<5.7)
[2024-11-10 13:51] LABS: MRSA (PCR) NOT DETECTED (NOT DETECTE)
== END 2024-11-10 12:14 | disposition home or self-care (01) ==
LOC: ANHSURGERY 12:16
PROVIDERS: PCP Family Medicine; Visit Provider Orthopaedic Surgery
DX: M17.11 Unilateral primary osteoarthritis, right knee (principal); Z01.818 Encounter for other preprocedural examination
CPT/HCPCS: 80307; 82565; 82947; 83036; 85025; 87641

== ENCOUNTER 2024-11-17 00:29 | Day surgery (SDC) | payer OTHER, SELFPAY ==
--- OUTSIDE RECORDS SUMMARY | 2005-08-27 09:15 | XMS_ITS | Continuity of Care Document ---
[facility] Organization [facility] Address [address] [place] [address] [place] [address] Phone Care Team Providers Care Overlock Elastic Attacher Name Role Phone Brad Avitia MD Unavailable Unavailable Advance Directives Directive Yes / No Effective Date File Name No Information Encounters Encounter Description Practice Location Reason(s) For Visit Diagnoses Date Provider Providers Copied on Encounter [facility], [address] [place] [address] [address], [place], [place], [id number], [place] tel:[phone] [address] [place] Professional No Information Aug- 1200 6 Sadi Salinas. [address] [facility] [address], [place], [place], [id number], [place]. tel:[phone] Family History Family Member Type Diagnosis Age At Onset No Information Payers Payer name Insurance type Covered green party ID Authoriza tion(s) BCBS [place] Out Of [place] [id number] Social History Type Description Quantity Date Captured Comments Sex Female Smoking Status No Information Chief Complaint And Reason For Visit No Information Reason For Referral Reason For Referral No Information History Of Present Illness Encounter Date Complaint History Of Prese nt Illness No Information Functional Status Date Functional Assessmen t No Information Instructions Date Instruction Additional Infor mation No Information Assessments Type Assessment Date No Information Patient Care Teams Name Effective Dates (start - stop) Status Members No Information
[2024-11-03 15:32] VITALS: BMI 36.7
--- NOTE | 2024-11-03 15:42 | PC.NURSE ---
Report to the Outpatient Waiting Room, entrance under the green pavilion located off [facility], at time ___06:00am____ on date __11/17/24 . Planned Procedure Time:07:30am .? Time changes happen often and if your time is changed the preop area will call you the afternoon before. - You and your visitor will be asked to self-screen and do not enter if you have any COVID symptoms. Please call surgeon if you need to reschedule. - A mask is optional within the hospital at this time. Patients may have clear liquids (water, carbonated beverages, clear teas, apple juice) until 3 hours prior to surgery with a maximum of 20 ounces. - No food from midnight until time of surgery and no smoking, or chewing tobacco (or any form of nicotine). No chewing gum, candy or mints. (0430am) Take only the following medications with a SIP of water on the morning of surgery: Levothyroxine, Sertraline, & Clonzepam DO NOT STOP ANY OF YOUR OTHER PRESCRIPTION MEDICATIONS PRIOR TO SURGERY EXCEPT THE FOLLOWING Hold all vitamins and supplements for 3 days per anesthesiologist. Date of last dose is 11/13/24 Medications to discontinue per physician ____Meloxicam for [address] Farnsworth Date to take last dose__11/08/24 Please no make-up, nail chadian, hairspray, perfume, deodorant, or body powder the day of surgery.? No jewelry (including any body piercings) or valuables the day of surgery, leave them at home.? Please take a shower or bath the night before, or the morning of, surgery with an antibacterial soap.? Wear comfortable, loose fitting clothing.?Bring overnight bag, walker, tennis shoes, cell phone and creative resource manager - Jewelry must be removed prior to entering the operating room.? Rings and piercings that are not removed may be cut off. - The hospital will not accept responsibility for valuables.? - Please leave all valuables, including medications, at home the day of surgery. If you are going home after surgery, a licensed mobile lounge driver or operator must drive you home.? - NO public transportation without another adult if you receive anesthesia. - We recommend that an adult stay with you for 24 hours following discharge. - We also recommend that you do not drive, make important decision, drink alcoholic beverages, or take any drugs that were not prescribed by your health care provider for at least 24 hours after your discharge time. Follow any additional instructions given to you from your surgeon. Telephone instructions given to __Patient and asked if any additional questions and then verbalized understanding. Patient advised to call surgeon office or pre surgery nurse liaison [phone] if any additional questions.
[2024-11-17] VITALS (9 sets, daily range): BP systolic 139–172; BP diastolic 77–96; PULSE 73–89; RESP 18–22; TEMP 36.3–37; O2SAT 96–98; BMI 37.0
--- NOTE | ~2024-11-17 | XR_ITS ---
EXAMINATION: [id number], 11/17/2024 9:40 CDT HISTORY: POST OP RIGHT CUSTOM TKA COMPARISON: No comparisons available. Findings: No acute fracture or malalignment. Prosthesis intact Soft tissues unremarkable. Impression: No acute fracture or malalignment. Reviewed, dictated and finalized at location A. Impression: No acute fracture or malalignment.
--- OUTSIDE RECORDS SUMMARY | 2024-11-17 00:31 | XMS_ITS | Encounter Summary ---
Author Organization [facility] Healthcare Address [address] [place] [address] Care Team Providers Care Athletic Coach Name Role Phone Arnoldo Saldana MD Primary Care Provider [phone] Lynn Yip MD Unavailable Juan Bateman MD Unavailable Bernadette Ma MD Unavailable [phone] Alli Stevens MD PhD Unavailable [phone] Encounter Details Date Type Department Care Team (Late st Contact Info) Description 11/10/2024 Orders Only [facility] Health Information Management [address] [place] [address] Scanning, Provider Social History Tobacco Use Types Packs/Day Years [...] on file Legal Sex Female 1:41 AM VICE PRESIDENT OF SALES Gender Identity Not on file Sexual Orientation Straight 08/10/2019 7: 45 PM CDT documented as of this encounter Plan of Treatment Upcoming Encounters Date Type Department Care Team (Late st Contact Info) Description 02/08/2025 7:55 AM VICE PRESIDENT OF SALES Hospital Encounter [address] [address] Pravin Macias MD [address] [facility] [address] [place] [address] 02/08/2025 7:55 AM VICE PRESIDENT OF SALES - 02/08/2025 8:25 AM VICE PRESIDENT OF SALES Surgery [address] [address] Pravin Macias MD [address] [facility] [address] [place] [address] COLONOSCOPY Scheduled Procedures Name Priority Associated Diagnoses Date/Ti me COLONOSCOPY Encounter for screening colonoscopy Family history of colonic polyps 02/08/2025 7:55 AM VICE PRESIDENT OF SALES documented as of this encounter Procedures Procedure Name Priority Date/Time Associated Diagnosis Comments SCAN - LABS 11/10/2024 documented in this encounter Results * SCAN - LABS (11/10/2024) us Provider Scanning Final Result documented in this encounter Visit Diagnoses Not on filedocumented in this encounter Care Teams Athletic Coach Relationship Specialty Start Date End Date Arnoldo Saldana MD [address] [place] [address] PCP - General 06/06/16 Lynn Yip MD [address] [place] [address] [address] [place] [address] Medical Oncologist/Chucking Machine Operator Medical Oncology 02/03/23 Juan Bateman MD [address] [facility] [address] [place] [address] Radiation Oncologist Radiation Oncology 07/27/23 Bernadette Ma MD [address] [facility] [address] [place] [address] Surgeon Surgical Oncology 07/27/23 Alli Stevens MD PhD [address] [facility] [address] [place] [address] Radiation Oncologist Radiation Oncology 07/27/23 documented as of this encounter
--- OUTSIDE RECORDS SUMMARY | 2024-11-17 00:32 | XMS_ITS ---
Author Organization [facility] Address [address] [place] [address] Care Team Providers Care Cover Creaser Name Role Phone Arnoldo Saldana MD Primary Care Provider [phone] Lynn Yip MD Unavailable Juan Bateman MD Unavailable Bernadette Ma MD Unavailable [phone] Alli Stevens MD PhD Unavailable Active Problems [...] from 02/17/2023:Stage IA(pT1b, pN0, cM0, G3, ER+, OR+, HER2-) - Signed by Iron Currie MD on 02/17/2023 Thyroid nodule 2022 Assessment & Plan (2022 3:35 PM CDT): Thyroid Ultrasound Epistaxis 2022 Assessment & Plan (2022 3:35 PM CDT): Nasal saline spray (Simply saline, Little Remedies, [place], [place]) 2 second sprays or 2 squeezes into [...] Nasal saline spray (Simply saline, Little Remedies, [place], [place]) 2 second sprays or 2 squeezes into [...] (12/23/2019): Added automatically from request for surgery [id number] Family history of colon cancer 12/23/2019 Overview (12/23/2019): Added automatically from request for surgery [id number] Anxiety 05/25/2019 Assessment & Plan (05/25/2019 9:12 [...]
--- OUTSIDE RECORDS SUMMARY | 2024-11-17 00:32 | XMS_ITS | Clinical Summary ---
Author Organization [facility] Address [address] [place] [address] Care Team Providers Care Lump Receiver Name Role Phone Julissa Lehman MD Primary Care Provider [phone] Source Comments [facility],non-owned Affiliates and Associated Physician Practices is amultiple site organization consisting of ambulatory clinics and hospital sitesin [place], [place], [place] and [place]. This disclosure is being madepursuant to the Care Everywhere program and may not contain all information available regarding this patient. Last updated 17.[facility] [employer] Social History Tobacco Use Types Packs/Day Years [...] complete this topic Insurance ANTH Care Teams Lump Receiver Relationship Specialty Start Date End Date Julissa Lehman MD [address] [place] [address] PCP - General 07/04/20
--- OUTSIDE RECORDS SUMMARY | 2024-11-17 00:32 | XMS_ITS | Encounter Summary ---
Author Organization [facility] Address [address] [place] [address] Care Team Providers Care Cannery Tender Engineer Name Role Phone Arnoldo Saldana MD Primary Care Provider [phone] Lynn Yip MD Unavailable Juan Bateman MD Unavailable Bernadette Ma MD Unavailable [phone] Alli Stevens MD PhD Unavailable [phone] Reason for Visit * Reason Onset Date Comments Scheduling Appointments 08/22/2020 Confirim ing mammogram appt- no answer Encounter Details Date Type Department Care Team (Late st Contact Info) Description 08/22/2020 Telephone [facility] [address] [place] [address] [address] Scheduling Appointments (Confiriming mammogram [...] on file Legal Sex Female 1:41 AM SCHOOL LIBRARY MEDIA PROGRAM DIRECTOR Gender Identity Not on file Sexual Orientation Straight 08/10/2019 7: 45 PM CDT documented as of this encounter Plan of Treatment Upcoming Encounters Date Type Department Care Team (Late st Contact Info) Description 02/08/2025 7:55 AM SCHOOL LIBRARY MEDIA PROGRAM DIRECTOR Hospital Encounter [facility] [address] [place] [address] Pravin Macias MD [address] [facility] [place] [address] 02/08/2025 7:55 AM SCHOOL LIBRARY MEDIA PROGRAM DIRECTOR - 02/08/2025 8:25 AM SCHOOL LIBRARY MEDIA PROGRAM DIRECTOR Surgery [address] [address] Pravin Macias MD [address] [facility] [facility] [facility] [address] [place] [address] COLONOSCOPY Scheduled Procedures Name Priority Associated Diagnoses Date/Ti me COLONOSCOPY Encounter for screening colonoscopy Family history of colonic polyps 02/08/2025 7:55 AM SCHOOL LIBRARY MEDIA PROGRAM DIRECTOR documented as of this encounter Visit Diagnoses Not on filedocumented in this encounter Care Teams Cannery Tender Engineer Relationship Specialty Start Date End Date Arnoldo Saldana MD [address] [place] [address] PCP - General 06/06/16 Lynn Yip MD [address] [place] [address] Medical Oncologist/Twisting Frame Changer Medical Oncology 02/03/23 Juan Bateman MD [address] [place] [address] Radiation Oncologist Radiation Oncology 07/27/23 Bernadette Ma MD [address] [place] [address] Surgeon Surgical Oncology 07/27/23 Alli Stevens MD PhD [address] [place] [address] Radiation Oncologist Radiation Oncology 07/27/23 documented as of this encounter
--- OUTSIDE RECORDS SUMMARY | 2024-11-17 00:32 | XMS_ITS | Encounter Summary ---
Author Organization [facility] Address [address] [place] [address] Care Team Providers Care Polls Or Surveys Interviewer Name Role Phone Julissa Lehman MD Primary Care Provider [phone] Encounter Details Date Type Department Care Team (Late st Contact Info) Description 07/05/2020 Lab Requisition [facility] DermPath Lab [address] [place] [address] Edmund Wang Jr., MD [address] [facility] [address] [place] [address] Social History Tobacco Use Types Packs/Day Years [...] AM CDT) Case Report Dermatopathology Report Case: [id number] Authorizing Provider: Edmund Wang Jr., MD Collected: [...] of a non-oriented ellipse of skin measuring [id number], bisected. Jar 0. 12:39 PM CDT DERMATOPATHOLOGY [...] purposes. Billing Codes Specimen Charges Stain Charges [id number] 1 12:39 PM CDT DERMATOPATHOLOGY LABORATORY Embedded Images 12:39 PM CDT DERMATOPATHOLOGY LABORATORY Pathology/Cytolog y TISSUE SPECIMEN FROM SKIN / Unknown 07/03/2020 07/05/2020 5:38 AM CDT us Edmund Wang Jr., MD LAB - PATHOLOGY/CYTOLOG Y ORDERABLES Final Result DERMATOPATHOLOGY LABORATORY [facility] - Department of Dermatology [address], [address] [phone] documented in this encounter Visit Diagnoses Not on filedocumented in this encounter Care Teams Polls Or Surveys Interviewer Relationship Specialty Start Date End Date Julissa Lehman MD [address] [place] [id number] PCP - General 07/04/20 documented as of this encounter
--- OUTSIDE RECORDS SUMMARY | 2024-11-17 00:32 | XMS_ITS | Clinical Summary ---
Author Organization [facility] Address [address] [place] [address] Care Team Providers Care Debeader Name Role Phone Arnoldo Saldana MD Primary Care Provider [phone] Lynn Yip MD Unavailable Juan Bateman MD Unavailable Bernadette Ma MD Unavailable [phone] Alli Stevens MD PhD Unavailable Allergies No known active allergies Medications magnesium [...] Take after a meal. 90 tablet 3 05/14/19 25 026 Active LORazepam (Ativan) 1 mg tablet Take 1 tablet (1 mg total) by mouth 1 time if needed for anxiety for up to 1 dose Please take 1 tablet after signing in at Radiology, before you are taken back for your MRI scan. 1 tablet 10/14/19 25 Active meloxicam (MOBIC) 15 mg tablet TAKE 1 TABLET(15 MG) BY MOUTH DAILY 30 tablet 11 11/10/19 25 Active clonazePAM (KlonoPIN) 0.5 mg tablet Take 1 tablet (0.5 mg total) by mouth 2 (two) times a day as needed for anxiety 30 tablet 11/17/19 25 Active meloxicam (MOBIC) 15 mg tablet Take 1 tablet (15 mg total) by mouth daily 30 tablet 11 12/02/19 24 025 Discontinued clonazePAM (KlonoPIN) 0.5 mg tablet Take 1 tablet (0.5 mg total) by mouth 2 (two) times a day as needed for anxiety 30 tablet 08/12/19 25 025 Discontinued(Re order) Active Problems Problem Noted Date Diagnosed Date Dermatofibroma 10/06/2024 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 Samples given today in office. Plan to submit appeal to insurance to hopefully get insurance [facility] since use of hormonal treatment is contraindicated [...] from 02/17/2023:Stage IA(pT1b, pN0, cM0, G3, ER+, AR+, HER2-) - Signed by Iron Currie MD on 02/17/2023 Thyroid nodule 2022 Assessment & Plan (2022 3:35 PM CDT): Thyroid Ultrasound Epistaxis 2022 Assessment & Plan (2022 3:35 PM CDT): Nasal saline spray (Simply saline, Little Remedies, [place], [place]) 2 second sprays or 2 squeezes into [...] Nasal saline spray (Simply saline, Little Remedies, [place], [place]) 2 second sprays or 2 squeezes into [...] (12/23/2019): Added automatically from request for surgery [id number] Family history of colon cancer 12/23/2019 Overview (12/23/2019): Added automatically from request for surgery [id number] Anxiety 05/25/2019 Assessment & Plan (05/25/2019 9:12 [...] Encounters Date Type Department Care Team Description 11/10/2024 Orders Only [facility] [place] [address] [place] [address] Scanning, Provider 11/03/2024 Results Follow-Up [facility] Gastroenterology [facility] [facility] [address] [place] [address] Refugio Colmenares MD MRI Abdomen MRCP W WO Contrast Incl 3D 10/26/2024 Orders Only [facility] [place] Information Management [address] [place] [address] Scanning, Provider 10/25/2024 8:10 AM CDT - 10/25/2024 11:59 PM CDT Hospital Encounter [facility] [address] [place] [address] NOEL gene mutation positive Discharge Disposition: Discharge to home or self care 10/13/2024 9:30 AM CDT Office Visit [facility] Medicine Gastroenterology [address] [facility] [address], [address] [place] [address] Refugio Colmenares MD NOEL gene mutation positive (Primary Dx); 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 10/06/2024 10:30 AM CDT Office Visit [address] [place] [address] Shanda De La Torre NP Dermatofibroma (Primary Dx) 09/29/2024 11:30 AM CDT Procedure visit [address] [place] [address] Nasim Mukherjee MD Benign neoplasm of skin of right lower extremity (Primary Dx) 09/29/2024 10:35 AM CDT - 09/29/2024 11:59 PM CDT Hospital Encounter [address] [address] Skin abnormalities Discharge Disposition: Discharge to home or self care 09/29/2024 Orders Only [address] [place] [address] Nasim Mukherjee MD Skin abnormalities (Primary Dx) 09/20/2024 10:10 AM CDT Office Visit [address] [place] [address] Nasim Mukherjee MD Benign neoplasm of skin of right lower extremity (Primary Dx); Neoplasm of uncertain behavior 09/07/2024 Results Follow-Up [facility] [address] [place] [address] Bernadette Ma MD Screening Mammogram Bilateral W Allen 09/06/2024 2:35 PM CDT - 09/06/2024 11:59 PM CDT Hospital Encounter [facility] - Breast Imaging [address] [place] [address] Floor [address] [place] [address] History of breast cancer; Malignant neoplasm of upper-inner quadrant of right breast in female, estrogen receptor positive (HCC) Discharge Disposition: Discharge to home or self care 09/06/2024 2:30 PM CDT Office Visit 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 [address] [place] [address] Corina Cornejo CMA from Last 3 Months [...] Disorder of thyroid Thyroid dise ase; Comments: [facility] 04/18/2014 -; Outcome: hypothyroidism Hx Other Medical menorrhagia; Co mments: [facility] 04/18/2014 - Cyst of skin Neck pain [...] House Leukemia; Clotting disorder Father's Sister Nia House Hyperlipidemia Father's Sister Nia House Cancer Maternal Grandmother Heidi Isabel Colon cancer Maternal Grandmother Heidi Isabel Breast cancer Maternal cousin 2nd cousin Thyroid disease Mother Thyroid dise ase; /Thyroid disorder; 70s y. Recurrent blod clots. Mother's Sister 2 Susana Carito ook Diabetes Mother's Sister 2 Susanaswetha Barber [...] Rivera Recurrent Blood clots Paternal Grandmother Renetta Fox ouse Ovarian cancer Neg Hx Thyroid cancer [...] on file Legal Sex Female 1:41 AM CURATOR OF PHOTOGRAPHY AND PRINTS Gender Identity Not on file Sexual Orientation [...] st Contact Info) Description 02/08/2025 7:55 AM CURATOR OF PHOTOGRAPHY AND PRINTS Hospital Encounter [address] [address] Pravin Macias MD [address] [place] [address] [place] [address] 02/08/2025 7:55 AM CURATOR OF PHOTOGRAPHY AND PRINTS - 02/08/2025 8:25 AM CURATOR OF PHOTOGRAPHY AND PRINTS Surgery [address] [address] Pravin Macias MD [address] [place] [address] COLONOSCOPY Scheduled Procedures Name Priority Associated Diagnoses Date/Ti me COLONOSCOPY Encounter for screening colonoscopy Family history of colonic polyps 02/08/2025 7:55 AM CURATOR OF PHOTOGRAPHY AND PRINTS Health Maintenance Due Date Last Done Comments [...] Vaccine Discontinued Medical Devices Implanted Type Area Microbiology Professor Device Identifier Shelf Expiration Date Model / Serial / Lot Bard Peripheral Vascular Marker Breast Dual Trigger Pva Ultraclip [id number] - [id number] - [id number] Implanted:Qty: 1 on 11/21/2022 by Nasim Peñaloza MD at [facility] Breast Right: Breast [employer] Per[employer] V[employer] 03/05/2025 [id number] / [id number] / Description:US guided right breast biopsy in 2:00 area; 3cmfn; cores x3 Bard Peripheral Vascular Ultraclip Bard 17ga 10cm 2 Trigger Permanent Ultrasound [id number] - [id number] - [id number] Implanted:Qty: 1 on 11/21/2022 by Nasim Peñaloza MD at [facility] Breast Right: Breast [employer] Per[employer] Vascular 11/03/2024 [id number] / [id number] / Description:US guided right axillary lymph node with mild cortical thickening (4 mm in thickness); cores x5 [employer] Marker Tissue Needle Delivery Spiral Capped Seed Radiopaque Fdc Stainless Steel Low Nickel Sentimag [id number] - [id number] Implanted:Qty: 1 on 01/12/2023 at [facility] [employer] [id number] / / Procedures Procedure Name Priority Date/Time Associated Diagnosis Comments SCAN - LABS 11/10/2024 SCAN - RADIOLOGY/IMAGING 10/26/2024 MRI ABDOMEN MRCP [...] TO HPV GENOTYPES Routine 02/12/2024 12:28 PM CURATOR OF PHOTOGRAPHY AND PRINTS Well woman exam COLONOSCOPY 02/06/2020 8:09 AM CURATOR OF PHOTOGRAPHY AND PRINTS from Last 3 Months or Most Recently Relevant to Health Maintenance Results * SCAN - LABS (11/10/2024) us Provider Scanning Final Result * SCAN - RADIOLOGY/IMAGING (10/26/2024) Anatomical Region [...] Lanny Prince M.D. FT: FT Report ID: [id number] Reading Location: [id number] Procedure Note Lanny Jefferson MD - 11/02/2024 [...] Lanny Prince M.D. FT: FT Report ID: [id number] Reading Location: [id number] Bella Pat Quiñonez ELECTRIC OPERATOR IMG MRI PROCEDURES Final Result * Surgical pathology (09/29/2024 12:11 PM CDT) Tissue (Skin) 09/29/2024 12: 11 PM CDT 09/30/2024 12:11 PM CDT Narrative PATHOLOGY CH - 10/05/2024 5:17 PM CDT EPIC results best viewed via link to PDF [facility] Department of Pathology [address] [place] [address] Note to Patients: This report may [...] Final Report Patient Name: MISTY RIVERA Address: [address] [place] [address]- Gender: F : 1970 (Age: 53) Service: Location: N : [id number] [facility] #: [id number] Patient Type: SPECIMEN Taken: 09/29/2024 Received: 09/30/2024 [...] in a single formalin filled container labeled [facility] and R upper leg. It is a [...] determined by the Surgical Pathology Department at [facility] as part of an ongoing software quality assurance analyst program and in compliance [...] characteristics determined by the Surgical Pathology Department [facility]. It has not been cleared or approved by the U. S. Food and Drug Administration. Note for decalcified specimens: This assay has not been validated on decalcified tissues. Results should be interpreted with caution given the possibility of false negativity on decalcified specimens us Nasim Mukherjee MD LAB PATHOLOGY [place] [address] [address] [address] * Screening Mammogram Bilateral W Allen (09/06/2024 [...] reflex to HPV Genotypes (02/12/2024 12:28 PM CURATOR OF PHOTOGRAPHY AND PRINTS) Clinical indication Comment [facility] - 01 Comment: NEGATIVE FOR INTRAEPITHELIAL LESION OR MALIGNANCY. CELLULAR CHANGES ASSOCIATED WITH ATROPHY AND INFLAMMATION ARE PRESENT. THIS SPECIMEN WAS RESCREENED PART OF OUR CONFERENCE ORGANIZER PROGRAM. Specimen adequacy: Comment [facility] - 01 Comment:Satisfactory for patti luation. Clinician provided ICD10 Comment LAB [facility] 02 Comment:Z01.419 Performed by Comment [facility] - 01 Comment:Anand Martinez totechnologist (ASCP) QC reviewed by Comment [facility] - 01 Comment:Tom Odmo, Jeanna ervisory Metal Reclamation Kettle Tender (ASCP) . . [facility] - 01 Note: [...] not performed. Thin prep-Endocervical 02/12/2024 12:28 PM CURATOR OF PHOTOGRAPHY AND PRINTS 02/12/2024 Narrative [facility] - 02/25/2024 10:09 AM CURATOR OF PHOTOGRAPHY AND PRINTS Performed at: - Lab[address] [id number] Electronic Coils Supervisor: Deanne Olivo MD, Phone: [phone] Performed at: - [address] [id number] Electronic Coils Supervisor: Caroline Dupont MD, Phone: [phone] Performed at: 03 - [address] [id number] Electronic Coils Supervisor: Caroline Dupont MD, Phone: [phone] Specimen Comment: [id number] Specimen Comment: No. of containers..01 ThinPrep Vial Kim Otto ELECTRIC OPERATOR LAB CYTOLOGY ORDERABLES Final Re sult LABCO [facility] - 01 LAB [facility] 02 [facility] 03 * COLONOSCOPY (02/06/2020 8:09 AM CURATOR OF PHOTOGRAPHY AND PRINTS) Anatomical Region Laterality Modality Other Narrative Procedure Note Aquiles Tavarez MD - 02/06/2020 8:09 AM CST [facility] Patient Name: Misty Rivera Procedure Date: 02/06/2020 8:09 AM Date of : 1970 Admit Type: Outpatient Age: 49 Gender: Female Attending MD: Aquiles Tavarez M.D. Room: [facility] ENDOSCOPY ROOM 2 Note Status: Finalized [...] was passed under direct vision. The Colonoscope [id number] was introduced through the anusand advanced to [...] malignant neoplasm of colon CPT copyright 2017 [employer]. All rights reserved. The codes documented in this report are preliminary and upon tankman reviewmay be revised to meet current compliance requirements. Recognized by the [employer] for promoting quality in endoscopy Aquiles Tavarez MD ENDOSCOPY PROCEDURES Final Re sult from Last 3 Months or Most Recently Relevant to Health Maintenance Insurance [facility] NEXUS [facility] HMO/PPO Address: [id number] [place] [address] GENERIC COPAY ASSIST [facility] NEXUS [facility] HMO/PPO Address: [address] [place] [address] Advance Directives For more information, please contact: [phone] * Full Code (Latest Code Status on File) Date Activated Date Inactivated Comments 02/06/2020 8:07 AM 02/06/2020 1:50 PM Care Teams Debeader Relationship Specialty Start Date End Date Arnoldo Saldana MD [address] [place] [address] PCP - General 06/06/16 Lynn Yip MD [address] [facility] [address] [place] [address] Medical Oncologist/General Office Dispatcher Medical Oncology 02/03/23 Juan Bateman MD [address] [facility] [address] [place] [address] Radiation Oncologist Radiation Oncology 07/27/23 Bernadette Ma MD [address] [facility] [address] [place] [address] Surgeon Surgical Oncology 07/27/23 Alli Stevens MD PhD [address] [facility] [address] [place] [address] Radiation Oncologist Radiation Oncology 07/27/23
[2024-11-17] MEDS: ACETAMINOPHEN 500 MG TABLET 1000 MG PO (06:15)
[2024-11-17] MEDS: LACTATED RINGERS 1,000 ML 30 ML IV CONT ×2 (06:30→09:40)
[2024-11-17 06:55] LABS: Albumin Level 4.6 g/dL (3.5-5.1)
--- NOTE | 2024-11-17 07:05 | WPDHPUPDATE1 ---
History and Physical Update Update Date/Time: 11/17/24 07:05 History and Physical has been reviewed, including an updated exam of the patient. There are NO changes in the patient's condition. Risks, benefits, and alternatives have been discussed and questions answered. Patient agrees to proceed with procedure.
[2024-11-17] MEDS: TRANEXAMIC ACID 1,000MG/ISO100 1,000 MG/100 ML BAG 200 MG IVPB (07:19)
--- NOTE | 2024-11-17 07:19 | WPDANESEPPF ---
Anes - Initial Pre Proc Eval Procedure: Operation Date: 11/17/24 07:30 Proposed Procedures p Right Custom Total Knee Arthroplasty - Stu Farnsworth MD Date/Time: 11/17/24 07:19 Surgeon: Stu Farnsworth MD Pre Op Diagnosis: primary OA right knee Patient Data Age: 53 Gender: F Height: 1.71 m Weight: 109.1 kg Last Vital Signs Temp 37.0 C 11/17/24 07:15 Pulse 85 11/17/24 07:15 BP 147/77 H 11/17/24 07:15 Pulse Ox 97 11/17/24 07:15 O2 Del Method Room Air 11/17/24 07:15 Allergies Allergy/AdvReac Type Severity Reaction Status Date / Time No Known Allergies Allergy Verified 11/03/24 15:27 Home Medications ?Medication ?Instructions ?Recorded ?Confirmed ?Type alprazolam 0.5 mg tablet 0.5 mg PO DAILY 11/24/23 11/03/24 History temazepam 15 mg capsule 15 mg PO QHS 11/24/23 11/03/24 History meloxicam 15 mg tablet 15 mg PO DAILY #90 tabs 12/04/23 11/03/24 Rx exemestane 25 mg tablet 25 mg PO DAILY 05/11/24 11/03/24 History krill oil 500 mg capsule 500 mg PO DAILY 05/11/24 11/03/24 History levothyroxine 137 mcg tablet 137 mcg PO DAILY 05/11/24 11/17/24 History magnesium citrate 100 mg capsule 100 mg PO DAILY 05/11/24 11/03/24 History multivitamin (Daily Multi-Vitamin 1 tablet PO DAILY 05/11/24 11/03/24 History tablet) sertraline 100 mg tablet 100 mg PO QAM 05/11/24 11/17/24 History clonazepam 0.5 mg tablet 0.5 mg PO DAILY PRN anxiety 11/03/24 11/03/24 History aspirin 81 mg tablet,delayed 81 mg PO BID 14 days #28 tabs 11/17/24 Rx release meloxicam 15 mg tablet 15 mg PO DAILY #30 tabs 11/17/24 Rx oxycodone-acetaminophen 5 mg-325 1 - 2 tablet PO Q4-6H PRN pain 7 11/17/24 Rx mg tablet days #30 tabs prednisone 5 mg tablet 5 mg PO DAILY 3 weeks #21 tabs 11/17/24 Rx Laboratory Tests 11/17/24 06:31 Albumin 4.6 g/dL (3.5-5.1) Blood Type A Positive Antibody Screen Pending Patient hx anesthesia problems: post op nausea/vomiting Family hx anesthesia problems: none Results Review: All pre-operative results and documents have been reviewed as part of the pre-operative evaluation. [facility] Past Medical History Medical History Osteoarthritis of knees, bilateral Anxiety Asthma Autoimmune disease Depression GERD (gastroesophageal reflux disease) PONV (postoperative nausea and vomiting) Thyroid nodule Hx of menorrhagia History of hypothyroidism Surgical History Surgical History H/O wrist surgery Hx of tonsillectomy H/O partial thyroidectomy H/O removal of cyst S/P laparoscopic assisted vaginal hysterectomy (LAVH) Hx of hysterectomy Hx of colonoscopy Hx of breast biopsy Family History Family History Mother Thyroid disease Father Hypertension Leukemia Grandparent Colon cancer Blood clot in vein Coronary artery disease Other Diabetes mellitus Other Breast cancer Other Lung cancer Liver cancer Social History Social History Smoking status: Never smoker Second hand tobacco smoke exposure: Yes Additional smoking assessment comments: DENIES ANY FORM OF TOBACCO USE Alcohol intake: never Substance use: never Substance use type: does not use Do You Feel Safe in your Home?: Yes Lack of Transportation: No Lack of Food: Never True Current Housing: I Have Housing Concerned About Future Housing: No Difficulty Paying Gas/Electric Bills: No Difficulty Paying for Meds: No Currently Unemployed: No Education: High School Diploma/GED Difficulty w/ Childcare or Family Care: No Living arrangements: with family Additional living arrangements comments: Spiritual care concerns: No Anes - Eval Final PreProcedure Day of Procedure 11/17/24 07:19 Patient weight: obese Heart: regular rate and rhythm Lungs: clear to auscultation Airway: Mallampati scale class II Neurological: alert and oriented Last oral intake: >/= 8 hours ASA classification: III Emergent: no Anesthetic plan: proceed Anesthesia type and monitoring: general LMA and standard monitoring Results Review: All pre-operative results and documents have been reviewed as part of the pre-operative evaluation. Informed Consent: The patient's anesthetic plan and its attendant risks and benefits were discussed with the patient/family/POA. Questions were solicited and answers provided to the satisfaction of the patient/family/POA.
[2024-11-17] MEDS: SCOPOLAMINE 1 MG PATCH 1 PATCH TRANSDERM (07:21)
[2024-11-17] MEDS: ceFAZolin 2 GM in SODIUM CHLORIDE 0.9% IV 50 ML 100 ML IVPB (07:23)
[2024-11-17] MEDS: SODIUM CHLORIDE 0.9% IV 37.7 ML, MORPHINE SULFATE INJ (*CRX) 2 MG, ROPivacaine HCL 1% 2... INFILTRATE (08:03)
[2024-11-17] MEDS: TRANEXAMIC ACID 1,000 MG/10 ML AMPUL 1000 MG IV PUSH (09:02)
--- NOTE | 2024-11-17 09:32 | P.OP_ITS ---
Procedure Note - Detailed Date of Procedure 11/17/24 Pre-op Diagnosis Right knee degenerative arthritis. Post-op Diagnosis Same Procedure Performed Custom total knee arthroplasty, right. Surgeon Stu Farnsworth MD Pediatric Psychiatrist Iram Amanad PA-C Anesthesia General Findings Similar findings to the contralateral knee. Large osteophytes. Excellent bone quality. Optimal custom implant fit. Description of Procedure Preoperative antibiotics were given. The limb was prepped and draped in the usual sterile fashion with a well-padded tourniquet high on the thigh. The limb was exsanguinated and the tourniquet inflated to 300 mmHg during exposure and cementation. A longitudinal incision was created just medial to the patella. A trivector approach to the knee was performed. Arthrotomy was taken down through the joint capsule. No significant releases were initially taken. The femur was exposed and the F1 jig was applied. The coring tool was used to remove the cartilage for the F2 jig to sit flush with the bone. The jig was pinned and the distal cut carefully taken. Caliper measurements confirmed appropriate bony resections according to the preoperative templated plan. The F4 cutting jig for the femur was applied, at the standard rotation. The AP and anterior chamfer cuts were taken. The F5 jig was applied and the posterior chamfer cuts were taken. The tibia was prepared using the T1 jig, after removing cartilage for the jig contact points. Proper alignment was checked with the alignment titi. The tibia was cut using the T1u guide. Gap balancing was performed. Gap measurements were taken and the knee was trialed. Excellent alignment and soft tissue balancing was confirmed. The posterior cruciate ligament was recessed along the proximal tibia. The patella was cut for resurfacing. Three lug holes were drilled. Meniscal remnants were removed. The trial components were assembled. Excellent range of motion and proper soft tissue balancing were confirmed throughout the full range of motion. Patellar tracking was excellent. The knee was copiously irrigated periodically throughout the procedure. The real implants were cemented into position. Excess cement was carefully removed. The wound was closed in layers with interrupted #1 Vicryl suture, 2-0 strata fix suture, 0 strata fix suture, 2-0 strata fix suture. Steri-Strips placed on the skin with the knee flexed. Sterile bulky dressing applied. The patient was brought to the recovery room in stable condition. There were no complications. Physician respiratory equipment assistant, Iram Amanda PA-C, required for surgery; including patient positioning, draping, tissue retraction, maintaining instrument position, cement removal, wound closure, and dressing placement. Implants Conformis Custom total knee arthroplasty. Cemented. Cruciate retaining. 8C insert. 35 mm oval patella. Estimated Blood Loss 100 Drains No Complications No immediate complications Condition Stable Disposition PACU [facility] Billing Surgery - Charge Forward: Surgery Billing
[2024-11-17] MEDS: oxyCODONE HCL (*CRX) 5 MG TAB IR PO (10:40)
== END 2024-11-17 12:05 | disposition home or self-care (01) ==
PROVIDERS: Anesthesiology; PCP Family Medicine; Visit Provider Orthopaedic Surgery
PROC: (CPT 27447; principal; 2024-11-17 07:30)
DX: M17.11 Unilateral primary osteoarthritis, right knee (principal); M25.761 Osteophyte, right knee; E03.9 Hypothyroidism, unspecified; J45.909 Unspecified asthma, uncomplicated; K21.9 Gastro-esophageal reflux disease without esophagitis; F41.9 Anxiety disorder, unspecified; F32.A Depression, unspecified; M35.9 Systemic involvement of connective tissue, unspecified; E66.9 Obesity, unspecified; Z68.37 Body mass index [BMI] 37.0-37.9, adult; Z79.82 Long term (current) use of aspirin; Z79.891 Long term (current) use of opiate analgesic; Z79.52 Long term (current) use of systemic steroids; Z98.890 Other specified postprocedural states; Z85.3 Personal history of malignant neoplasm of breast; Z80.6 Family history of leukemia; Z80.0 Family history of malignant neoplasm of digestive organs; Z80.3 Family history of malignant neoplasm of breast; Z80.1 Family history of malignant neoplasm of trachea, bronchus and lung; Z82.49 Family history of ischemic heart disease and other diseases of the circulatory system
CPT/HCPCS: 27447; 36415; 73560; 82040; 86850; 86880; 86900; 86901; 86902; 97110; 97161; 97165; J0690; A9270; C1713; C1776; J0166; J1100; J1200; J1885; J2250; J2270; J2405; J2704; J2795; J7120